=== PATIENT | male | born 1960 | race Caucasian/White ===

== ENCOUNTER → 2021-05-15 08:25 | Outpatient (CLI) | payer OTHER, SELFPAY ==
[2021-05-15 20:44] LABS: SARS-CoV-2 RNA PCR Negative
== END ==
PROVIDERS: PCP Physician Assistant; Visit Provider Physician Assistant
DX: R68.89 Other general symptoms and signs (principal); Z20.822 Contact with and (suspected) exposure to COVID-19
CPT/HCPCS: C9803; U0003; U0005

== ENCOUNTER 2021-08-21 08:14 | Outpatient (CLI) | payer OTHER, SELFPAY ==
--- NOTE | ~2021-08-21 | US_ITS ---
EXAMINATION: US art doppler sakina ROBLERO DATE: 08/21/2021 10:15 INDICATION: Type 1 diabetes mellitus with foot ulcer TECHNIQUE: Segmental pressures and plethysmographic and Doppler waveforms of the brachial and lower e xtremity arteries were obtained. COMPARISON: None. FINDINGS: Right and left brachial artery pressures of 176m Hg and 177m Hg, respectively, are concordant (normal difference <= 30 mmHg). The right and left high-thigh pressure indices are unable to be assessed due to inability to occlude the vessels throughout the bilateral lower limbs. The right ankle-brachial index (CLARENCE) is unable to be assessed due to inability to occlude the vessels at the right ankle (normal >= 0.9-1). The right great toe-brachial index (TBI) is 0.08 (normal >= 0. 6-0.8). Arterial waveforms are biphasic with borderline delayed upstrokes at the right posterior tibi al artery and with brisk upstrokes at the remaining arteries of the right lower limb. The left CLARENCE is unable to be assessed due to inability to occlude the vessels at the left ankle. The left TBI is 0.71. Arterial waveforms are biphasic with brisk systolic upstrokes throughout the arteri es of the left lower limb. IMPRESSION: 1. 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 2. No significant arterial occlusive disease in the left lower limb with normal left TBI. 3. Inability to occlude the vessels in either lower limb, at and proximal to the level of the ankles, which could be due to hypertension and/or vessel wall calcification. This precludes assessment of hi gh thigh pressure indices and ankle brachial indices. Reviewed, dictated and finalized at location B. IMPRESSION: 1. Severely decreased right TBI consistent with arterial occlusive disease in t he right lower limb. 2. No significant arterial occlusive disease in the left lower limb with normal left TBI. 3. Inability to occlude the vessels in either lower limb, at and proximal to th e level of the ankles, which could be due to hypertension and/or vessel wall ca lcification. This precludes assessment of high thigh pressure indices and ankle brachial indices.
== END 2021-08-21 08:15 | disposition home or self-care (01) ==
PROVIDERS: PCP Physician Assistant; Visit Provider Podiatrist Foot & Ankle Surgery
DX: E10.621 Type 1 diabetes mellitus with foot ulcer (principal); I73.9 Peripheral vascular disease, unspecified; L97.509 Non-pressure chronic ulcer of other part of unspecified foot with unspecified severity
CPT/HCPCS: 93923

== ENCOUNTER → 2021-12-24 12:49 | Outpatient (CLI) | payer OTHER, SELFPAY ==
--- NOTE | ~2021-12-24 | MR_ITS ---
EXAMINATION: MR foot RT wo/w con DATE: 12/24/2021 13:54 INDICATION: Right foot osteomyelitis. Open wound of the fifth digit since September. TECHNIQUE: Magnetic resonance imaging (MRI) of the right foot was performed without and with 17 mL Mu ltiHance intravenous contrast. COMPARISON: None FINDINGS: Bone alignment is normal. No fracture. There is bone marrow edema of fifth middle and dista l phalanges characterized by increased T2-weighted signal intensity and decreased T1-weighted signal intensity, consistent with osteomyelitis. There is mild osteoarthritis of many of the metatarsophalan geal joints and interphalangeal joints. Lisfranc ligament is normal. The flexor and extensor tendons are normal. There is extensive subcutaneous edema, worst dorsally. IMPRESSION: 1. Osteomyelitis involving fifth middle and distal phalanges. Reviewed, dictated and finalized at location A.
== END ==
PROVIDERS: PCP Physician Assistant; Visit Provider Student in an Organized Health Care Education/Training Program
DX: M86.171 Other acute osteomyelitis, right ankle and foot (principal)
CPT/HCPCS: 73720; A9577

== ENCOUNTER 2022-01-15 10:10 | Outpatient (CLI) | payer OTHER, SELFPAY ==
[2022-01-15 10:54] LABS: Anion Gap 13 mmol/L (8-16); Blood Urea Nitrogen 17 mg/dL (9-20); Calcium 8.2 mg/dL (8.4-10.2); Carbon Dioxide 28 mmol/L (22-30); Chloride 97 mmol/L (98-107); Estimated Glomerular Filt Rate > 60; Glucose 271 mg/dL (65-110); Potassium 4.3 mmol/L (3.4-5.0); Sodium 138 mmol/L (137-145)
== END 2022-01-15 10:11 | disposition home or self-care (01) ==
LOC: ANHSURGERY 10:13
PROVIDERS: Anesthesiology; PCP Physician Assistant; Visit Provider Student in an Organized Health Care Education/Training Program
DX: E10.9 Type 1 diabetes mellitus without complications (principal)
CPT/HCPCS: 36415; 80048

== ENCOUNTER 2022-01-20 00:50 | Day surgery (SDC) | payer OTHER, SELFPAY ==
[2022-01-13 09:31] VITALS: BMI 30.2
--- NOTE | 2022-01-13 09:52 | PC.NURSE ---
Report to the Outpatient Waiting Room, entrance under the green pavilion located off [facility], at time 12:00 on date 01/20/22. OR Time: 2:00. - You and your visitor will be asked to self-screen and do not enter if you have any COVID symptoms. - Only one visitor and NO children visitors are allowed at this time. - The patient visitor is requested to leave or wait in car when not with patient due to restrictions. - A mask is required within the hospital. Patients may have clear liquids (water, carbonated beverages, clear teas, apple juice) until 3 hours prior to surgery (11:00) with a maximum of 20 ounces. - No food from midnight until time of surgery Take the following medications with a SIP of water the morning of surgery: LEVOFLOXACIN, PREGABALIN, PAIN PILL (IF NEEDED), 1/2 DOSE INSULIN (DEPENDING ON BLOOD SUGAR) Medications to discontinue per physician: ASPIRIN, XARELTO Date to take last dose: PER DR. BURKETT'S INSTRUCTIONS Please no make-up, nail chinese, hairspray, perfume, deodorant, or body powder the day of surgery. No jewelry (including any body piercings) or valuables the day of surgery, leave them at home. Please take a shower or bath the night before, or the morning of, surgery with an antibacterial soap. Wear comfortable, loose fitting clothing. - Jewelry must be removed prior to entering the operating room. Rings and piercings that are not removed may be cut off. - The hospital will not accept responsibility for valuables. - Please leave all valuables, including medications, at home the day of surgery. If you are going home after surgery, a licensed minibus driver must drive you home. - NO public transportation without another adult. - We recommend that an adult stay with you for 24 hours following discharge. - We also recommend that you do not drive, make important decision, drink alcoholic beverages, or take any drugs that were not prescribed by your health care provider for at least 24 hours after your discharge time. Follow any additional instructions given to you from your surgeon. If you or anyone in your household have experienced Covid symptoms in the past week, please notify your surgeon or the nurse liaison at the phone number below for possible testing. Telephone instructions given to PT Dieter CHERRY and asked if any additional questions and then verbalized understanding. Patient advised to call surgeon office or pre surgery nurse liaison [phone] if any additional questions.
--- NOTE | ~2022-01-20 | XR_ITS ---
EXAMINATION: XR surgery orthopedic DATE: 01/20/2022 14:56 INDICATION: Partial amputation of the right fifth toe TECHNIQUE: Single fluoroscopic image at the lateral aspect of the right forefoot was obtained during procedure performed by Dr. Solares. Radiologist was not present for the imaging or procedure. The am ount of fluoroscopy time used during this procedure was 0.1 minutes. COMPARISON: MRI dated 12/24/2021 FINDINGS: Interval resection of the middle and distal phalanges and head of the proximal phalanx of the right f ifth toe. The surrounding soft tissues of the mid to distal fifth toe have not yet been resected. [place] at the neck of the fifth metatarsal. No fractures. Mild osteoarthritis at the visualized int erphalangeal joints of the third and fourth toes. IMPRESSION: 1. Fluoroscopy utilized during partial amputation of the right fifth toe with resection of the middle and distal phalanges and osteotomy at the neck of the proximal phalanx. See procedure note for furth er detail. Reviewed, dictated and finalized at location A. IMPRESSION: 1. Fluoroscopy utilized during partial amputation of the right fifth toe with r esection of the middle and distal phalanges and osteotomy at the neck of the pr oximal phalanx. See procedure note for further detail.
[2022-01-20 12:10] VITALS: BP 148/46; PULSE 83; RESP 16; TEMP 36.8; O2SAT 98
[2022-01-20 13:03] LABS: Glucose Point of Care 293 mg/dl (65-105)
--- NOTE | 2022-01-20 13:08 | P.PNAN_ITS ---
Anes - Initial Pre Proc Eval Procedure: Operation Date: 01/20/22 14:00 Proposed Procedures p Partial Amputation Fifth Digit Right Foot - Gloria Solares DPM Date/Time: 01/20/22 13:08 Surgeon: Gloria Solares DPM Pre Op Diagnosis: osteomylitis right 5th digit Patient Data Age: 61 Gender: M Height: 1.65 m Weight: 82.4 kg Last Vital Signs Temp 98.2 F 01/20/22 12:10 Pulse 83 01/20/22 12:10 Resp 16 01/20/22 12:10 BP 148/46 H 01/20/22 12:10 Pulse Ox 98 01/20/22 12:10 O2 Del Method Room Air 01/20/22 12:10 Allergies Allergy/AdvReac Type Severity Reaction Status Date / Time Penicillins Allergy Unknown Unknown Verified 01/20/22 11:58 Home Medications Medication Instructions Recorded Confirmed Type insulin aspart (niacinamide) See Rx Instructions .Route .COMPLEX 03/24/19 01/20/22 History (U-100) 100 unit/mL subcutaneous solution (Fiasp U-100 Insulin) insulin degludec 100 unit/mL 10 unit subcut DAILY 03/24/19 01/20/22 History subcutaneous solution (Tresiba U-100 Insulin) collagenase clostridium histo. 250 1 applic topical DAILY 12/21/21 01/20/22 History unit/gram topical ointment (Santyl) pregabalin 50 mg capsule (Lyrica) 50 mg PO TID #90 caps 12/21/21 01/20/22 Rx rivaroxaban 2.5 mg tablet (Xarelto) 2.5 mg PO BID 12/21/21 01/20/22 History acetaminophen 300 mg-codeine 30 mg 1 tablet PO Q6H PRN Pain 01/13/22 01/20/22 History tablet aspirin 81 mg chewable tablet 81 mg PO DAILY 01/13/22 01/20/22 History levofloxacin 500 mg tablet 750 mg PO BID 01/13/22 01/20/22 History Laboratory Tests 01/20/22 12:18 POC Capillary Glucose 293 mg/dl H mg/dl (65-105) Patient hx anesthesia problems: none Family hx anesthesia problems: none Results Review: All pre-operative results and documents have been reviewed as part of the pre- operative evaluation. [facility] Family History Family History Other Diabetes mellitus Social History Social History Smoking status: Never smoker Alcohol intake: never Substance use: never Substance use type: does not use Living arrangements: with family Spiritual care concerns: No Anes - Eval Final PreProcedure Day of Procedure 01/20/22 13:08 Patient weight: obese Heart: regular rate and rhythm Lungs: clear to auscultation Airway: Mallampati scale class II Neurological: alert and oriented Last oral intake: >/= 8 hours ASA classification: III Emergent: no Anesthetic plan: proceed Anesthesia type and monitoring: general GIVS and standard monitoring Results Review: All pre-operative results and documents have been reviewed as part of the pre- operative evaluation. Informed Consent: The patient's anesthetic plan and its attendant risks and benefits were discussed with the patient/family/POA. Questions were solicited and answers provided to the satisfaction of the patient/family/POA.
[2022-01-20] MEDS: LACTATED RINGERS 1,000 ML 30 ML IV CONT (13:20)
--- NOTE | 2022-01-20 13:56 | WPDHPUPDATE1 ---
History and Physical Update Update Date/Time: 01/20/22 13:56 History and Physical has been reviewed, including an updated exam of the patient. There are NO changes in the patient's condition. Risks, benefits, and alternatives have been discussed and questions answered. Patient agrees to proceed with procedure.
[2022-01-20] MEDS: ceFAZolin 2 GM/D5W 50 ML 2 GM/50 ML BAG IVPB (14:03)
[2022-01-20] MEDS: LIDOCAINE 1% BUFFERED WITH 8.4% SODIUM BICARB 1 ML SYRINGE 5 ML INFILTRATE (14:30)
[2022-01-20] MEDS: BUPIVACAINE HCL 0.5% PF 30 ML VIAL 5 ML INFILTRATE (14:30)
[2022-01-20 14:46] VITALS: BP 122/55; PULSE 65; RESP 14; O2SAT 98
--- NOTE | 2022-01-20 14:46 | W.PM.PROC2 ---
Procedure Note - Detailed Date of Procedure 01/20/22 Pre-op Diagnosis osteomylitis right 5th digit Post-op Diagnosis Same Procedure Performed Partial amputation right 5th digit. Surgeon Gloria Solares DPM Anesthesia MAC Indications Patient was seen in my office for non-healing ulcer right 5th after a vascular procedure done earlier this year. Patient failed conservative wound care and oral antibiotic therapy. An MRI was done and found to have osteomyelitis of the right 5th digit distal and middle phalanx. Patient was referred to infectious disease and they recommended amputation of the digit. Description of Procedure Patient brought into the operating room and placed on the table in the supine position. A well padded pneumatic ankle tourniquet was placed on the right ankle. A seat belt was placed across the patient's lap. A timeout was performed. A preoperative block using 10 cc of 1:1 mix of 1% lidocaine plain and 0.5% bupivacaine plain around the 5th digit. The foot was prepped and drapped using aseptic technique. The foot was exsanguinated of blood using an esmarch bandage and the tourniquet was inflated to 250 mmhg. Attention was drawn to the right 5th digit. Noted ulceration present. A fishmouth incision was made over the distal aspect of the right 5th digit. The incision was deepened through subcutaneous tissue and down to bone. The digit was disarticulated at the PIPJ and sent to pathology as gross specimen. A culture swab was performed at this time and sent for anaerobic/aerobic specimen. Next the head of the proximal phalanx was excised using a sagittal saw. The head of the proximal phalanx was split and half sent to microbiology and the other half sent to pathology as a clearance fragment. The incision was flushed with copious amounts of normal saline. The subcutaneous tissue was closed using 4-0 monocryl. The skin was closed using 4-0 prolene. The foot was cleaned and then dressed with adaptic, 4x4 gauze, kerlix and emery wrap. The tourniquet was deflated at this time and immediate hyperemic response was noted. The patient was transferred to the pacu. The patient tolerated the procedure and anesthesia well. The patient was monitored and then discharged home. The patient is to follow up in my office in 1 week or sooner if needed. Implants 4-0 monocryl and 4-0 prolene. Estimated Blood Loss 5 Tourniquet Time 20 Pathology Yes (1) Anaerobic/aerobic culture swab right 5th digit. 2) Distal right 5th digit to patology. 3) Clearance fragment right 5th digit to pathology. 4) Clearance fragment right 5h digit to microbiology.) Complications No immediate complications Condition Stable
[2022-01-20 15:15] VITALS: BP 144/47; PULSE 60
[2022-01-20 15:45] VITALS: BP 136/59; PULSE 57
[2022-01-20 15:52] LABS: Glucose Point of Care 280 mg/dl (65-105)
--- NOTE | 2022-01-20 15:54 | SUR.PHASEII ---
Dr. Sutherland aware of BP and said patient can resume regimen at home.
[2022-01-20] MEDS: ONDANSETRON INJ 4 MG/2 ML VIAL IV PUSH (16:07)
[2022-01-20 16:15] VITALS: BP 159/55; PULSE 63
[2022-01-20 16:45] VITALS: BP 153/63; PULSE 66
== END 2022-01-20 17:02 | disposition home or self-care (01) ==
PROVIDERS: PCP Physician Assistant; Visit Provider Student in an Organized Health Care Education/Training Program
PROC: (CPT 28825; principal; 2022-01-20 14:00)
DX: E10.621 Type 1 diabetes mellitus with foot ulcer (principal); L97.519 Non-pressure chronic ulcer of other part of right foot with unspecified severity; Z79.4 Long term (current) use of insulin; Z79.01 Long term (current) use of anticoagulants; E66.9 Obesity, unspecified; Z68.30 Body mass index [BMI] 30.0-30.9, adult
CPT/HCPCS: 28825; 82948; 87070; 87075; 87205; 88305; 88311; 99199; J0690; J2250; J2405; J2704; J3010; J7120

== ENCOUNTER 2022-05-11 14:48 | Outpatient (CLI) | payer OTHER, SELFPAY ==
--- NOTE | ~2022-05-11 | XR_ITS ---
EXAMINATION: XR hip LT min 3V w AP pelvis INDICATION: Left hip pain TECHNIQUE: AP view the pelvis and three views of the left hip are obtained. COMPARISON: None available FINDINGS: Bone alignment is normal. There is advanced osteoarthritis of the left hip and moderate ost eoarthritis of the right hip. Calcified atherosclerosis is noted. There is no fracture. IMPRESSION: 1. Advanced left and moderate right hip osteoarthritis. No fracture. Reviewed, dictated and finalized at location L. 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
== END 2022-05-11 14:49 | disposition home or self-care (01) ==
LOC: ANHIMG 14:52
PROVIDERS: PCP Physician Assistant; Visit Provider Physician Assistant
DX: M16.0 Bilateral primary osteoarthritis of hip (principal)
CPT/HCPCS: 73502

== ENCOUNTER 2022-06-22 11:52 | Outpatient (CLI) | payer OTHER, SELFPAY ==
[2022-06-22 12:38] LABS: Basophils Absolute Auto 0.1 K/mm3 (0.0-0.1); Basophils Percent Auto 0.6 % (0.2-1.2); Eosinophils Absolute Auto 0.2 K/mm3 (0-0.3); Eosinophils Percent Auto 1.6 % (0-4.4); Hematocrit 42.5 % (42.0-52.0); Hemoglobin 14.5 g/dL (14.0-18.0); Immature Granulocyte Absolute 0.02 K/mm3 (0.00-0.031); Immature Granulocyte Percent A 0.2 % (0-0.5); Lymphocytes Absolute Auto 3.29 K/mm3 (0.9-3.2); Lymphocytes Percent Auto 33.6 % (18.3-44.2); Mean Corpuscular HGB Conc 34.1 g/dl (32-36); Mean Corpuscular Hemoglobin 30.1 pg (26-34); Mean Corpuscular Volume 88.2 fl (80-100); Mean Platelet Volume 8.9 fl (7.4-10.4); Monocytes Absolute Auto 0.7 K/mm3 (0.1-0.6); Monocytes Percent Auto 6.9 % (2.6-8.5); Neutrophils Absolute Auto 5.6 K/mm3 (1.3-6.7); Neutrophils Percent Auto 57.1 % (45.5-73.1); Platelet Count Result 338 k/mm3 (150-375); Red Blood Count 4.82 M/mm3 (4.6-6.20); Red Cell Distribution Width 13.5 % (11.5-14.5); White Blood Count 9.8 K/mm3 (4.5-10.0)
[2022-06-22 13:15] LABS: Prostate Specific Antigen 1.7 ng/mL (< OR = 4.0)
[2022-06-22 16:12] LABS: Folic Acid > 20.0 ng/mL (2.76->20); Vitamin B12 > 1000.0 pg/mL (239-931)
== END 2022-06-22 11:53 | disposition home or self-care (01) ==
LOC: ANHLAB 11:53
PROVIDERS: PCP Physician Assistant; Visit Provider Physician Assistant
DX: Z00.00 Encounter for general adult medical examination without abnormal findings (principal); Z12.5 Encounter for screening for malignant neoplasm of prostate
CPT/HCPCS: 36415; 82607; 82746; 84153; 84443; 85025; G0103

== ENCOUNTER 2022-09-13 10:16 | Outpatient (CLI) | payer OTHER, SELFPAY ==
[2022-09-13 10:40] LABS: Hematocrit 38.9 % (42.0-52.0); Hemoglobin 13.2 g/dL (14.0-18.0)
[2022-09-13 10:52] LABS: Urine Cotinine NEGATIVE
[2022-09-13 10:53] LABS: Hemoglobin A1C 8.5 % (<5.7)
[2022-09-13 10:56] LABS: Albumin Level 4.1 g/dL (3.5-5.1); Estimated Glomerular Filt Rate > 60; Glucose 194 mg/dL (65-110)
--- NOTE | 2022-09-13 11:07 | ECG_ITS ---
Measurements Intervals [place] Rate: 65 P: 48 IN: 170 QRS: -13 QRSD: 94 T: 36 QT: 382 QTc: 397 Interpretive Statements SINUS RHYTHM BASELINE WANDER- I, II NORMAL ECG NO PREVIOUS ECG AVAILABLE FOR COMPARISON Electronically Signed On 09-13-2022 11:31:24 CDT by Too Elder D.O.
== END 2022-09-13 10:17 | disposition home or self-care (01) ==
PROVIDERS: PCP Physician Assistant; Visit Provider Orthopaedic Surgery
DX: M16.0 Bilateral primary osteoarthritis of hip (principal); E11.9 Type 2 diabetes mellitus without complications
CPT/HCPCS: 80307; 82040; 82565; 82947; 83036; 85014; 85018; 93005

== ENCOUNTER 2023-01-03 00:57 | Emergency (ER) | payer OTHER, SELFPAY ==
[2023-01-03] VITALS (17 sets, daily range): BP systolic 95–149; BP diastolic 41–65; PULSE 62–90; RESP 12–22; TEMP 36.1; O2SAT 96–100
--- NOTE | ~2023-01-03 | CT_ITS ---
EXAMINATION: CT abdomen pelvis w con DATE: 01/03/2023 02:44 INDICATION: General is abdominal pain. Nausea. TECHNIQUE: Computed tomography (CT) of the abdomen and pelvis was performed with 100 mL Omnipaque 350 intravenous contrast. Automated exposure control and iterative reconstruction technique were employe d. The dose-length product was 640.91 mGy-cm. COMPARISON: None. FINDINGS: The visualized portions of the lung bases demonstrate mild atelectasis. There is a 5 mm nod ule in left lung lower lobe. There is a 6 mm nodule in left lung lower lobe. A calcified left lung no dule is consistent with old granulomatous disease. No pleural effusion. The heart size is normal. The re are coronary artery calcifications. No pericardial effusion. The liver and spleen are normal. The gallbladder is normal in size and contains gallstones. There is a gallstone lodged in the gallbladder neck. The pancreas, adrenal glands, and left kidney are normal. There is a 3.5 cm mass in right kidn ey measuring soft tissue attenuation. The prostate is mildly enlarged. There are no dilated loops of bowel. The appendix is normal. There are no pathologically enlarged lymph nodes. There is no free int raperitoneal fluid. There is mild chronic height loss of multiple vertebral bodies. There is mild tho racic and lumbar spondylosis. IMPRESSION: 1. Cholelithiasis including a gallstone lodged in the gallbladder neck. No specific evidence of acute cholecystitis. Consider ultrasound. 2. 3.5 cm mass in right kidney, which may be a hemorrhagic cyst or less likely a neoplasm. Ultrasound is recommended. 3. Pulmonary nodules measuring up to 6 mm, probably benign. Consider noncontrast low-dose chest CT in 6-12 months. Reviewed, dictated and finalized at location A. IMPRESSION: 1. Cholelithiasis including a gallstone lodged in the gallbladder neck. No spec ific evidence of acute cholecystitis. Consider ultrasound. 2. 3.5 cm mass in right kidney, which may be a hemorrhagic cyst or less likely a neoplasm. Ultrasound is recommended. 3. Pulmonary nodules measuring up to 6 mm, probably benign. Consider noncontras t low-dose chest CT in 6-12 months.
[2023-01-03 01:13] LABS: Appearance Urine Clear (Clear); Bilirubin Urine Negative (Negative); Blood Urine Negative (Negative); Color Urine Yellow (Yellow); Glucose Urine UA Negative (Negative); Ketones Urine Negative (Negative); Leukocyte Esterase Ur Negative LEU/UL (Negative); Nitrate Urine Negative (Negative); Protein Urine Negative (Negative); Specific Grav Ur 1.017 (1.001-1.035); Urobilinogen Urine 0.2 mg/dL (<2.0); pH Urine 5.5 (5.0-9.0)
[2023-01-03 01:33] LABS: Add Urine Microscopic? NO
[2023-01-03 01:39] LABS: Basophils Absolute Auto 0.1 K/mm3 (0.0-0.1); Basophils Percent Auto 0.5 % (0.2-1.2); Eosinophils Absolute Auto 0.3 K/mm3 (0-0.3); Eosinophils Percent Auto 2.3 % (0-4.4); Hematocrit 39.7 % (42.0-52.0); Hemoglobin 13.4 g/dL (14.0-18.0); Immature Granulocyte Absolute 0.05 K/mm3 (0.00-0.031); Immature Granulocyte Percent A 0.4 % (0-0.5); Lymphocytes Absolute Auto 1.96 K/mm3 (0.9-3.2); Lymphocytes Percent Auto 15.9 % (18.3-44.2); Mean Corpuscular HGB Conc 33.8 g/dl (32-36); Mean Corpuscular Hemoglobin 31.2 pg (26-34); Mean Corpuscular Volume 92.3 fl (80-100); Mean Platelet Volume 8.9 fl (7.4-10.4); Monocytes Absolute Auto 0.9 K/mm3 (0.1-0.6); Neutrophils Absolute Auto 9.2 K/mm3 (1.3-6.7); Neutrophils Percent Auto 73.9 % (45.5-73.1); Platelet Count Result 304 k/mm3 (150-375); Red Cell Distribution Width 13.2 % (11.5-14.5); White Blood Count 12.4 K/mm3 (4.5-10.0)
[2023-01-03 02:13] LABS: Alanine Aminotransferase 39 U/L (6-50); Albumin Level 4.2 g/dL (3.5-5.1); Alkaline Phosphatase 99 U/L (38-126); Anion Gap 8 mmol/L (8-16); Aspartate Amino Transferase 38 U/L (17-59); Bilirubin,Total 0.3 mg/dL (0.2-1.3); Blood Urea Nitrogen 23 mg/dL (9-20); Calcium 8.8 mg/dL (8.4-10.2); Carbon Dioxide 24 mmol/L (22-30); Chloride 103 mmol/L (98-107); Estimated CRCL calculation 83 ml/min; Estimated Glomerular Filt Rate > 60; Glucose 153 mg/dL (65-110); Lipase 67 U/L (23-300); Potassium 3.9 mmol/L (3.4-5.0); Sodium 135 mmol/L (137-145)
[2023-01-03] MEDS: SODIUM CHLORIDE 0.9% IV 1,000 ML 999 ML IV CONT (02:19)
[2023-01-03] MEDS: MORPHINE SULFATE (*CRX) 4 MG/ML INJ IV PUSH (02:20)
[2023-01-03] MEDS: ONDANSETRON INJ 4 MG/2 ML VIAL IV PUSH (02:20)
--- NOTE | 2023-01-03 02:21 | ED.GENADULT ---
HPI - General Adult General Chief complaint: Abdominal Pain Stated complaint: stomach is upset, nausea Time Seen by Provider: 01/03/23 01:47 History of Present Illness HPI narrative: Patient is 62-year-old gentleman who presents the emergency department with chief complaint of abdominal pain. The patient reports that around 2 to 3 hours ago he started having an uncomfortable feeling throughout his abdomen the patient states an aching-like feeling and feels full. Patient reports he is unable to get comfortable in any position reports symptoms or not worsened by movement or palpation. Related Data Home Medications Medication Instructions Recorded Confirmed insulin aspart (niacinamide) See Rx Instructions .Route .COMPLEX 03/24/19 09/08/22 (U-100) 100 unit/mL subcutaneous solution (Fiasp U-100 Insulin) insulin degludec 100 unit/mL 10 unit subcut DAILY 03/24/19 09/08/22 subcutaneous solution (Tresiba U-100 Insulin) rivaroxaban 2.5 mg tablet (Xarelto) 2.5 mg PO BID 12/21/21 09/08/22 aspirin 81 mg chewable tablet 81 mg PO DAILY 01/13/22 09/08/22 rosuvastatin 20 mg tablet 20 mg PO DAILY 02/04/22 09/08/22 Allergies Allergy/AdvReac Type Severity Reaction Status Date / Time Penicillins Allergy Unknown Unknown Verified 01/03/23 01:35 Review of Systems Review of Systems: A 10 system review of systems was completed on the patient and is negative except for what is stated in the HPI. Nursing and ancillary documentation was reviewed. [facility] Past Medical History Medical History Diabetes Surgical History Surgical History History of angioplasty Family History Family History Other Diabetes mellitus Social History Social History Smoking status: Never smoker Alcohol intake: never Substance use: never Substance use type: does not use Lack of Transportation: No Lack of Food: Never True Current Housing: I Have Housing Concerned About Future Housing: No Difficulty Paying Gas/Electric Bills: No Difficulty Paying for Meds: No Currently Unemployed: No Education: High School Diploma/GED Difficulty w/ Childcare or Family Care: No Living arrangements: with family Spiritual care concerns: No Exam Narrative: GENERAL: Well-appearing, well-nourished, and in no acute distress. HEAD: Normocephalic, atraumatic. EYES: PERRLA and EOMI. ENT: Nares clear, no rhinorrhea or epistaxis. Mucous membranes moist. NECK: Supple. CHEST: Clear to auscultation. No respiratory distress. HEART: Regular rate and rhythm. No murmur heard. Normal peripheral pulses. ABDOMEN: Soft, diffuse mild tenderness, nondistended, normal active bowel sounds. EXTREMITIES: Normal range of motion. No edema. SKIN: Warm, dry, no rash. NEURO: No focal deficits. Alert and oriented x3. PSYCH: Normal mood and affect. Course Vital Signs Vital signs: Vital Signs Temperature 36.1 C L 01/03/23 01:00 Pulse Rate 66 01/03/23 01:00 Respiratory Rate 16 01/03/23 01:00 Blood Pressure 126/65 01/03/23 01:00 Pulse Oximetry 100 01/03/23 01:00 Oxygen Delivery Room Air 01/03/23 01:00 Temperature 36.1 C L 01/03/23 01:00 Pulse Rate 86 01/03/23 04:45 Respiratory Rate 13 01/03/23 04:45 Blood Pressure 147/43 H 01/03/23 04:31 Pulse Oximetry 100 01/03/23 04:45 Oxygen Delivery Room Air 01/03/23 01:00 Medical Decision Making [facility] Narrative Medical decision making narrative: Differential diagnosis includes biliary colic, ureterolithiasis, cholecystitis, Laboratory studies were obtained which showed a CBC with a white count of 12.4 electrolytes are within normal limits urinalysis showed no acute findings CT scan of the abdomen pelvis showed evid
--- NOTE | 2023-01-03 02:28 | PC.NURSE ---
Patient taken to CT via stretcher at this time.
== END 2023-01-03 06:37 | disposition home or self-care (01) ==
PROVIDERS: Emergency Provider Emergency Medicine; PCP Physician Assistant
DX: K80.70 Calculus of gallbladder and bile duct without cholecystitis without obstruction (principal); E11.9 Type 2 diabetes mellitus without complications; Z79.82 Long term (current) use of aspirin; Z79.4 Long term (current) use of insulin; Z79.01 Long term (current) use of anticoagulants; Z98.61 Coronary angioplasty status; N28.89 Other specified disorders of kidney and ureter; R91.8 Other nonspecific abnormal finding of lung field
CPT/HCPCS: 36415; 74177; 80053; 81003; 83690; 85025; 96361; 96374; 96375; 99284; J2270; J2405; J7030; Q9967

== ENCOUNTER → 2023-01-22 07:58 | Outpatient (CLI) | payer OTHER, SELFPAY ==
--- NOTE | ~2023-01-22 | US_ITS ---
EXAMINATION: US renal BI DATE: 01/22/2023 08:56 INDICATION: R renal mass TECHNIQUE: Multiple grayscale and Doppler ultrasound images of the kidneys were obtained. COMPARISON: None. FINDINGS: The right kidney measures 10.4 x 6.5 x 6.4 cm. The left kidney measures 12.1 x 5.6 x 5.1 cm. The kidn eys demonstrate normal parenchymal echogenicity. 3.9 cm minimally lobulated, mostly anechoic right mi dpole lesion with minimal nonvascular internal debris and peripheral hypoechoic areas that could repr esent solid tissue. There is no hydronephrosis. The bladder is decompressed. IMPRESSION: 3.9 cm right midpole complex cyst, recommend CT or MRI with and without contrast for further evaluati on. Otherwise unremarkable renal sonogram findings. Reviewed, dictated and finalized at location K. IMPRESSION: 3.9 cm right midpole complex cyst, recommend CT or MRI with and without contras t for further evaluation. Otherwise unremarkable renal sonogram findings.
== END ==
PROVIDERS: PCP Physician Assistant; Visit Provider Physician Assistant
DX: N28.89 Other specified disorders of kidney and ureter (principal)
CPT/HCPCS: 76775

== ENCOUNTER → 2023-02-07 13:47 | Outpatient (CLI) | payer OTHER, SELFPAY ==
--- NOTE | ~2023-02-07 | MR_ITS ---
EXAMINATION: MR abdomen wo/w con DATE: 02/07/2023 15:00 INDICATION: Other specified disorders of kidney and ureter. Right kidney mass. TECHNIQUE: Magnetic resonance imaging (MRI) of the abdomen was performed without and with 17 mL Multi Kaitlin intravenous contrast. COMPARISON: Ultrasound 01/22/2023, CT 01/03/2023 FINDINGS: The liver is normal. There are gallstones in the gallbladder, which is normal in size. The spleen is normal. There is a 7 mm cystic lesion in the tail of the pancreas. The adrenal glands and left kidney are normal. There is a 3.8 cm hemorrhagic cyst in right kidney. No solid enhancing component. There are no dilated loops of bowel. There are no pathologically enlarged lymph nodes. There is no free int raperitoneal fluid. IMPRESSION: 1. 3.8 cm benign hemorrhagic cyst in right kidney. 2. 7 mm cystic lesion of the pancreas. The differential diagnosis includes pseudocyst, intraductal pa pillary mucinous neoplasm (IPMN), mucinous cystic neoplasm (MCN), serous cystadenoma, and neuroendocr ine tumor. Abdomen MRI without and with contrast is recommended in one year. Reviewed, dictated and finalized at location A. IMPRESSION: 1. 3.8 cm benign hemorrhagic cyst in right kidney. 2. 7 mm cystic lesion of the pancreas. The differential diagnosis includes pseu docyst, intraductal papillary mucinous neoplasm (IPMN), mucinous cystic neoplas m (MCN), serous cystadenoma, and neuroendocrine tumor. Abdomen MRI without and with contrast is recommended in one year.
== END ==
PROVIDERS: Visit Provider Physician Assistant
DX: N28.89 Other specified disorders of kidney and ureter (principal); R60.0 Localized edema
CPT/HCPCS: 74183; A9577

== ENCOUNTER 2023-03-09 17:32 | Emergency (ER) | payer OTHER, SELFPAY ==
[2023-03-09 17:38] VITALS: BP 142/60; PULSE 73; RESP 16; TEMP 36.7; O2SAT 98
--- NOTE | 2023-03-09 17:58 | ED.GENADULT ---
HPI - General Adult General Chief complaint: Nausea/Vomiting/Diarrhea Stated complaint: Vomitting and Stomach Issues Source: patient and RN notes reviewed History of Present Illness HPI narrative: 62 yo M presents to urgent care stating that he vomited 2x today. Pt states he vomited 1x in the late morning. Pt states he felt woozy in the head a little later so he checked his sugar and it was 80 mg/dl. Pt ate lunch at that time and he vomited again. Pt states he is no longer nauseated and he has kept fluids down today. Pt has not tried eating food since lunch. Denies any fevers, chills, abdominal pain, chest pain, SOB, sore throat, ear pain, congestion, dysuria, or any further wooziness. Denies any VALVERDE, numbness or tingling. Related Data Home Medications Medication Instructions Recorded Confirmed insulin aspart (niacinamide) See Rx Instructions .Route .COMPLEX 03/24/19 02/08/23 (U-100) 100 unit/mL subcutaneous solution (Fiasp U-100 Insulin) insulin degludec 100 unit/mL 10 unit subcut DAILY 03/24/19 02/08/23 subcutaneous solution (Tresiba U-100 Insulin) rivaroxaban 2.5 mg tablet (Xarelto) 2.5 mg PO BID 12/21/21 02/08/23 rosuvastatin 20 mg tablet 20 mg PO DAILY 02/04/22 02/08/23 Tumeric 1,000 mg PO DAILY 02/08/23 02/08/23 cholecalciferol (vitamin D3) 25 25 mcg PO DAILY 02/08/23 02/08/23 mcg (1,000 unit) tablet (Vitamin D3) cinnamon bark 500 mg capsule 1,000 mg PO DAILY 02/08/23 02/08/23 (Cinnamon) cyanocobalamin (vitamin B-12) 1,000 mcg PO DAILY 02/08/23 02/08/23 1,000 mcg tablet (Vitamin B-12) geriatric multivitamin-min 1 tablet PO DAILY 02/08/23 02/08/23 krill 1 cap PO DAILY 02/08/23 02/08/23 [id number] 300 mg-90 mg-24 mg-50 mg capsule (krill oil) losartan 100 1 tablet PO DAILY 02/08/23 02/08/23 mg-hydrochlorothiazide 25 mg tablet Allergies Allergy/AdvReac Type Severity Reaction Status Date / Time Penicillins Allergy Unknown Hives Verified 02/08/23 14:38 Review of Systems Review of Systems: CONSTITUTIONAL: Denies fever, chills, or sweats. EYES: Denies visual changes, redness, or discharge. ENT: Denies otalgia and sore throat CARDIOVASCULAR: Denies chest pain, palpitations, or edema. RESPIRATORY: Denies cough or dyspnea. GASTROINTESTINAL: Denies abdominal pain, nausea, vomiting, or diarrhea. GENITOURINARY: Denies dysuria or hematuria. SKIN: Denies rash or itching. MUSCULOSKELETAL: Denies back pain, joint pain, or myalgia. NEUROLOGIC: Denies headache, numbness, or weakness. Pertinent positives per HPI. COUNT INCLUDES THE [facility] Past Medical History Medical History Diabetes Surgical History Surgical History History of angioplasty Family History Family History Other Diabetes mellitus Social History Social History Smoking status: Never smoker Alcohol intake: never Substance use: never Substance use type: does not use Lack of Transportation: No Lack of Food: Never True Current Housing: I Have Housing Concerned About Future Housing: No Difficulty Paying Gas/Electric Bills: No Difficulty Paying for Meds: No Currently Unemployed: No Education: High School Diploma/GED Difficulty w/ Childcare or Family Care: No Living arrangements: with family Spiritual care concerns: No Comments At the time of my signature, I reviewed and agree with the nursing past medical, surgical, social, and family history. There is no relevant family history pertinent to the patient complaint. Exam Narrative: GENERAL: This is a well-nourished, well-developed patient, in no apparent distress. HEAD: normocephalic, atraumatic. EYES: Sclera clear/white. Vision is grossly intact. EARS: External ears normal, auditory canals clear
== END 2023-03-09 18:06 | disposition home or self-care (01) ==
PROVIDERS: Emergency Provider Nurse Practitioner Family; PCP Physician Assistant
DX: K52.9 Noninfective gastroenteritis and colitis, unspecified (principal); E11.9 Type 2 diabetes mellitus without complications; Z79.4 Long term (current) use of insulin; Z79.01 Long term (current) use of anticoagulants
CPT/HCPCS: 99213; G0463

== ENCOUNTER 2023-04-26 07:17 | Outpatient (RCR) | payer OTHER, SELFPAY ==
[2023-02-08 10:15] VITALS: BMI 30.5
== END 2023-05-09 23:59 | disposition home or self-care (01) ==
LOC: ANHWOC 07:17
PROVIDERS: Visit Provider Podiatrist Foot & Ankle Surgery
DX: L97.519 Non-pressure chronic ulcer of other part of right foot with unspecified severity (principal)
CPT/HCPCS: 99213; 99214; G0463

== ENCOUNTER 2023-05-18 09:45 | Outpatient (RCR) | payer OTHER, SELFPAY ==
[2023-05-10 00:02] VITALS: BMI 30.5
== END 2023-05-18 10:30 | disposition home or self-care (01) ==
LOC: ANHWOC 09:45
PROVIDERS: PCP Physician Assistant; Visit Provider Podiatrist Foot & Ankle Surgery
DX: L97.511 Non-pressure chronic ulcer of other part of right foot limited to breakdown of skin (principal)
CPT/HCPCS: 99213; G0463

== ENCOUNTER 2023-06-08 10:53 | Outpatient (CLI) | payer OTHER, SELFPAY ==
[2023-06-08 11:48] LABS: Influenza A QL RT-PCR Negative (Negative); Influenza B QL RT-PCR Negative (Negative); RSV RNA, RT-PCR Positive (Negative); SARS-CoV-2 RNA PCR Negative (Negative)
== END 2023-06-08 10:54 | disposition home or self-care (01) ==
LOC: ANHLAB 10:54
PROVIDERS: PCP Physician Assistant; Visit Provider Physician Assistant
DX: R68.89 Other general symptoms and signs (principal); Z20.822 Contact with and (suspected) exposure to COVID-19
CPT/HCPCS: 87637

== ENCOUNTER 2023-06-16 14:23 | Outpatient (CLI) | payer OTHER, SELFPAY ==
--- NOTE | ~2023-06-16 | XR_ITS ---
XR chest 2V DATE: 06/16/2023 14:35 INDICATION: Cough for 2 weeks TECHNIQUE: PA and lateral views COMPARISON: September 05, 2017 two-view chest FINDINGS: Normal heart size. No hilar or mediastinal enlargement. No pulmonary infiltrate or consolidation, pleural effusion or pulmonary vascular congestion or pneumo thorax is detected. Multiple calcified gallstones overlying the anterior upper abdomen on lateral view. Dextroscoliosis and degenerative changes of the thoracic and lumbar spine. Healed anterolateral right eighth rib fracture. Osteopenia. IMPRESSION: No active cardiopulmonary disease Cholelithiasis. Reviewed, dictated and finalized at location L. [facility]IST[facility]
== END 2023-06-16 14:24 | disposition home or self-care (01) ==
LOC: ANHIMG 14:25
PROVIDERS: PCP Physician Assistant; Visit Provider Physician Assistant
DX: R05.9 Cough, unspecified (principal); K80.20 Calculus of gallbladder without cholecystitis without obstruction
CPT/HCPCS: 71046

== ENCOUNTER 2023-06-18 15:17 | Emergency (ER) | payer OTHER, SELFPAY ==
[2023-06-18 15:24] VITALS: BP 129/55; PULSE 75; RESP 16; TEMP 36.6; O2SAT 99
--- NOTE | 2023-06-18 15:43 | ED.URI ---
HPI - URI/Sore Throat General Chief Complaint: Upper Respiratory Infection Stated Complaint: Cough Source: patient Mode of arrival: ambulatory Limitations: no limitations History of Present Illness HPI Narrative: 63-year-old male presented for complaint of cough for 2 weeks. He denies any associated symptoms. Taking Mucinex for symptoms. Related Data Home Medications Medication Instructions Recorded Confirmed insulin aspart (niacinamide) See Rx Instructions .Route .COMPLEX 03/24/19 02/08/23 (U-100) 100 unit/mL subcutaneous solution (Fiasp U-100 Insulin) insulin degludec 100 unit/mL 10 unit subcut DAILY 03/24/19 02/08/23 subcutaneous solution (Tresiba U-100 Insulin) rivaroxaban 2.5 mg tablet (Xarelto) 2.5 mg PO BID 12/21/21 02/08/23 rosuvastatin 20 mg tablet 20 mg PO DAILY 02/04/22 02/08/23 Tumeric 1,000 mg PO DAILY 02/08/23 02/08/23 cholecalciferol (vitamin D3) 25 25 mcg PO DAILY 02/08/23 02/08/23 mcg (1,000 unit) tablet (Vitamin D3) cinnamon bark 500 mg capsule 1,000 mg PO DAILY 02/08/23 02/08/23 (Cinnamon) cyanocobalamin (vitamin B-12) 1,000 mcg PO DAILY 02/08/23 02/08/23 1,000 mcg tablet (Vitamin B-12) geriatric multivitamin-min 1 tablet PO DAILY 02/08/23 02/08/23 krill 1 cap PO DAILY 02/08/23 02/08/23 [id number] 300 mg-90 mg-24 mg-50 mg capsule (krill oil) losartan 100 1 tablet PO DAILY 02/08/23 02/08/23 mg-hydrochlorothiazide 25 mg tablet Allergies Allergy/AdvReac Type Severity Reaction Status Date / Time Penicillins Allergy Unknown Hives Verified 02/08/23 14:38 Review of Systems Review of Systems: CONSTITUTIONAL: Denies body aches, fever, chills, or sweats. EYES: Denies visual changes, redness, or discharge. ENT: Denies rhinorrhea, congestion, sore throat, or otalgia. CARDIOVASCULAR: Denies chest pain, palpitations, or edema. RESPIRATORY: Reports cough,denies sob, wheezing. GASTROINTESTINAL: Denies abdominal pain, nausea, vomiting, or diarrhea. GENITOURINARY: Denies dysuria or hematuria. SKIN: Denies rash, itching, or wounds. MUSCULOSKELETAL: Denies back pain, joint pain, or myalgia. NEUROLOGIC: Denies headache, numbness, tingling, or weakness. All systems reviewed & are unremarkable except as noted in HPI and below PMFSH Past Medical History Medical History Diabetes Surgical History Surgical History History of angioplasty Family History Family History Other Diabetes mellitus Social History Social History Smoking status: Never smoker Alcohol intake: never Substance use: never Substance use type: does not use Lack of Transportation: No Lack of Food: Never True Current Housing: I Have Housing Concerned About Future Housing: No Difficulty Paying Gas/Electric Bills: No Difficulty Paying for Meds: No Currently Unemployed: No Education: High School Diploma/GED Difficulty w/ Childcare or Family Care: No Living arrangements: with family Spiritual care concerns: No Comments At time of signature, I have reviewed and agree with nursing past medical, surgical, social and family history unless otherwise noted. Please see nursing chart for further information. There is no relevant family history pertinent to the presenting complaint Exam Narrative: GENERAL: Well-appearing, in no acute distress. EYES: EOMI. No redness or drainage. Conjunctivae normal. ENT: Mucous membranes pink and moist. No rhinorrhea. CHEST: No respiratory distress. Lungs with scattered coarse sounds, clears with frequent cough. HEART: Regular rate and rhythm. No murmur appreciated. ABDOMEN: Soft, nontender, nondistended, normal active bowel sounds. SKIN: Warm, dry, no rash. Capillary refill normal. Normal skin turgor.
== END 2023-06-18 15:55 | disposition home or self-care (01) ==
PROVIDERS: Emergency Provider Nurse Practitioner Family; PCP Physician Assistant
DX: J40 Bronchitis, not specified as acute or chronic (principal); E11.9 Type 2 diabetes mellitus without complications; Z79.4 Long term (current) use of insulin
CPT/HCPCS: 99213; G0463

== ENCOUNTER 2024-06-02 12:57 | Emergency (ER) | payer OTHER, SELFPAY ==
--- NOTE | ~2024-06-02 | XR_ITS ---
EXAMINATION: XR hand LT min 3V DATE: 06/02/2024 13:23 INDICATION: Left hand injury. TECHNIQUE: 3 views of left hand were obtained. COMPARISON: None. FINDINGS: Alignment is normal. No fracture. There is mild osteoarthritis of third and fourth metacarp ophalangeal joints and some of the interphalangeal joints. IMPRESSION: 1. Mild polyarticular osteoarthritis. Reviewed, dictated and finalized at location A. SHER FEEDER
[2024-06-02 13:12] VITALS: BP 150/36; PULSE 72; RESP 16; TEMP 36.4; O2SAT 99
[2024-06-02] MEDS: TETANUS,DIPHTHERIA,AC PERTUSSIS ADULT (0.5 ML) BOOSTRIX IM (13:59)
--- NOTE | 2024-06-02 14:08 | ED_ITS ---
HPI - Extremity Injury (Upper) General Chief Complaint: Extremity Injury, Upper Stated Complaint: Injured Left Hand Time Seen by Provider: 06/02/24 13:38 Source: patient, family () and RN notes reviewed Mode of arrival: ambulatory Limitations: no limitations History of Present Illness HPI narrative: Patient presents today complaining of an injury to his left hand. 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 Denies numbness or tingling in the hand or fingers. Primarily the injuries are to the dorsum of his 2nd and 3rd fingers. He i nitially had some bleeding on the 2nd finger but states he went to the school nurse and she bandaged the area. He currently rates his pain 5/10 and has taken some Tylenol with relief. States this will be a workmen's compensation claim. Related Data Home Medications ?Medication ?Instructions ?Recorded ?Confirmed ?Last Taken ?Type insulin aspart (niacinamide) See Rx Instructions .Route .COMPLEX 03/24/19 12/23/23 01/20/22 08:00 History (U-100) 100 unit/mL subcutaneous solution (Fiasp U-100 Insulin) insulin degludec 100 unit/mL 10 unit subcut DAILY 03/24/19 12/23/23 01/20/22 09:00 History subcutaneous solution (Tresiba U-100 Insulin) rivaroxaban 2.5 mg tablet (Xarelto) 2.5 mg PO BID 12/21/21 12/23/23 01/17/22 History rosuvastatin 20 mg tablet 20 mg PO DAILY 02/04/22 12/23/23 Unknown History Tumeric 1,000 mg PO DAILY 02/08/23 12/23/23 Unknown History cholecalciferol (vitamin D3) 25 25 mcg PO DAILY 02/08/23 12/23/23 Unknown History mcg (1,000 unit) tablet (Vitamin D3) cinnamon bark 500 mg capsule 1,000 mg PO DAILY 02/08/23 12/23/23 Unknown History (Cinnamon) cyanocobalamin (vitamin B-12) 1,000 mcg PO DAILY 02/08/23 12/23/23 Unknown History 1,000 mcg tablet (Vitamin B-12) geriatric multivitamin-min 1 tablet PO DAILY 09/26/23 08/09/24 Unknown History krill 1 cap PO DAILY 02/08/23 12/23/23 Unknown History [id number]-tam-[id number] 300 mg-90 mg-24 mg-50 mg capsule (krill oil) Allergies Allergy/AdvReac Type Severity Reaction Status Date / Time Penicillins Allergy Unknown Hives Verified 02/08/24 07:26 Review of Systems Review of Systems: CONSTITUTIONAL: Denies body aches, fever, chills, or sweats. EYES: Denies visual changes, redness, or discharge. ENT: Denies rhinorrhea, congestion, sore throat, or otalgia. CARDIOVASCULAR: Denies chest pain, palpitations, or edema. RESPIRATORY: Denies cough or dyspnea. GASTROINTESTINAL: Denies abdominal pain, nausea, vomiting, or diarrhea. GENITOURINARY: Denies dysuria or hematuria. SKIN: Denies rash, itching, or wounds. MUSCULOSKELETAL: Denies back pain. +left hand injury NEUROLOGIC: Denies headache, numbness, tingling, or weakness. PSYCH: Denies depression or anxiety. PMFSH Past Medical History Medical History Diabetes Surgical History Surgical History History of angioplasty Family History Family History Other Diabetes mellitus Social History Social History Smoking status: Never smoker Alcohol intake: never Substance use: never Substance use type: does not use Lack of Transportation: No Lack of Food: Never True Current Housing: I Have Housing Concerned About Future Housing: No Difficulty Paying Gas/Electric Bills: No Difficulty Paying for Meds: No Currently Unemployed: No Education: High School Diploma/GED Difficulty w/ Childcare or Family Care: No Living arrangements: with family Spiritual care concerns: No Comments At time of signature, I have reviewed and agree with nursing past medical, surgical, social and family history unless otherwise noted. Please see nursing chart for further information. There is no relevant family history pertinent to the presenting complaint Exam Narrative: GENERAL: Well-appearing, well-nourished, and in no acute distress. HEAD: Normocephalic, atraumatic. EYES: EOMI. No redness or drainage. Conjunctivae normal. ENT: Mucous membranes pink and moist. NECK: Normal AROM. CHEST: No respiratory distress. EXTREMITIES: Left hand:Ecchymosis on the dorsums of fingers 2 and 3. Approx 1cm linear scabbed area to dorsum of 2nd finger. No deformities. Tenderness to fingers 2 and 3 but no tenderness to the remainder of the fingers or hand. Distal sensation intact in all 5 fingers. Capillary refill. Full range of motion of all fingers against resistance. No fingernail involvement. SKIN: Warm, dry, no rash. Capillary refill normal. Normal skin turgor. NEURO: No focal deficits. Alert and oriented x3. Gait steady. PSYCH: Normal affect. No signs of depression or anxiety. Course Course Level of Care: Express Care Visit Vital Signs Vital signs: Vital Signs Temperature 97.5 F L 06/02/24 13:12 Pulse Rate 72 06/02/24 13:12 Respiratory Rate 16 06/02/24 13:12 Blood Pressure 150/36 H 06/02/24 13:12 Pulse Oximetry 99 06/02/24 13:12 Temperature 97.5 F L 06/02/24 13:12 Pulse Rate 74 06/02/24 14:10 Respiratory Rate 16 06/02/24 13:12 Blood Pressure 126/44 L 06/02/24 14:10 Pulse Oximetry 99 06/02/24 14:10 Oxygen Delivery Room Air 06/02/24 14:10 Reviewed MDM - Extremity Injury (Upper) MDM Narrative Medical decision making narrative: X-ray negative for fracture. Recommend ifnr-mjj-pdwulcv treatment for pain such as Tylenol or ibuprofen ice to help with inflammation. Anticipatory guidance given. Differential Diagnosis Differential diagnosis: Likely dislocation of finger, fracture of hand and other (Contusion, finger fracture, abrasion) Imaging Data Radiologist's impression: ITS Impressions Hand X-Ray 06/02/24 13:26 IMPRESSION: 1. Mild polyarticular osteoarthritis. Critical Care Time Critical Care Time Critical Care Time: No Discharge Plan Discharge Clinical Impression: Contusion of dorsum of left hand Patient Disposition: Home, Self-Care Condition: Stable Instructions: Contusion in Adults (ED) Additional Instructions: Your x-ray is negative for fracture. Your tetanus shot has been updated today. Continue Tylenol for pain. You may apply some ice for inflammation. Follow-up with your employer regarding workman's compensation. Your blood pressure was elevated above 120/80 today at Urgent Care. This puts you above the threshold for follow up. Please schedule a followup visit with your personal physician as soon as possible, for further evaluation and treatment. Even blood pressure exceeding 120/80 may indicate pre-hypertension. Patient Language: Latvian Prescriptions: No Action ondansetron 4 mg tablet,disintegrating 4 mg PO Q6H PRN (Reason: nausea and vomiting) Qty: 14 0RF prednisone 50 mg tablet 50 mg PO DAILY Qty: 5 0RF Xarelto 2.5 mg tablet 2.5 mg PO BID cyanocobalamin (vitamin B-12) [Vitamin B-12] 1,000 mcg Tablet 1,000 mcg PO DAILY One-A-Day 50 Plus Tablet 1 tablet PO DAILY cinnamon bark [Cinnamon] 500 mg Capsule 1,000 mg PO DAILY cholecalciferol (vitamin D3) [Vitamin D3] 25 mcg (1,000 unit) Tablet 25 mcg PO DAILY [id number]-mjobpw [krill oil] 729-09-96-50 mg Capsule 1 cap PO DAILY Tumeric 1,000 mg 1,000 mg PO DAILY Tresiba U-100 Insulin 100 unit/mL solution 10 unit SUB-Q DAILY Rx Instructions: Take per insulin protocol Fiasp U-100 Insulin 100 unit/mL solution See Rx Instructions .ROUTE .COMPLEX Rx Instructions: take per protocol rosuvastatin 20 mg tablet 20 mg PO DAILY albuterol sulfate 90 mcg/actuation HFA aerosol inhaler 2 puff inhalation Q4-6H PRN (Reason: shortness of breath or wheezing) Qty: 8.5 0RF tramadol 50 mg tablet 50 mg PO Q8H PRN (Reason: Pain (Scale Score 1-3)) Qty: 21 0RF fluticasone furoate-vilanterol [Breo Ellipta] 100-25 mcg/dose blister with device 1 inh inhalation DAILY Qty: 60 0RF benzonatate 200 mg capsule 200 mg PO TID PRN (Reason: cough) Qty: 30 1RF amlodipine 10 mg tablet 10 mg PO DAILY Qty: 90 2RF valsartan-hydrochlorothiazide 320-25 mg tablet 1 tablet PO DAILY Qty: 90 1RF Follow-up/Referrals: Munir Dalton DO [Primary Care Provider] - Time of Disposition: 14:07
[2024-06-02 14:10] VITALS: BP 126/44; PULSE 74; O2SAT 99
== END 2024-06-02 14:10 | disposition home or self-care (01) ==
PROVIDERS: Emergency Provider Nurse Practitioner; PCP Internal Medicine
DX: S60.022A Contusion of left index finger without damage to nail, initial encounter (principal); S60.032A Contusion of left middle finger without damage to nail, initial encounter; X58.XXXA Exposure to other specified factors, initial encounter; Y99.0 Civilian activity done for income or pay; E11.9 Type 2 diabetes mellitus without complications; Z79.4 Long term (current) use of insulin; Z98.61 Coronary angioplasty status; Z79.01 Long term (current) use of anticoagulants
CPT/HCPCS: 73130; 90471; 90715; 99213; G0463

== ENCOUNTER 2024-09-29 12:43 | Emergency (ER) | payer OTHER, SELFPAY ==
--- NOTE | ~2024-09-29 | XR_ITS ---
XR knee LT min 4V Ordering provider: Gloria Elias PA-C History: . left knee pain . Comparison: None. FINDINGS: BONES: No acute fracture or dislocation. JOINT SPACES: Normal. SOFT TISSUES: Vascular calcifications. IMPRESSION: No acute osseous abnormality left knee. Consider MRI knee if there is concern for soft tissue internal derangement. Reviewed, dictated and finalized at location A.
--- NOTE | ~2024-09-29 | US_ITS ---
LEFT LOWER EXTREMITY VENOUS ULTRASOUND Ordering provider: Gloria Elias History: . left leg swelling, recent surgery . Comparison: None. FINDINGS: --COMMON FEMORAL: Patent and free of thrombus. Normal compressibility, phasic flow and augmentation. --PROXIMAL SUPERFICIAL FEMORAL: Patent and free of thrombus. Normal compressibility, phasic flow and augmentation. --DISTAL SUPERFICIAL FEMORAL: Patent and free of thrombus. Normal compressibility, phasic flow and au gmentation. --POPLITEAL: Patent and free of thrombus. Normal compressibility, phasic flow and augmentation. --POSTERIOR TIBIAL: Patent and free of thrombus. Normal compressibility, phasic flow and augmentation . IMPRESSION: Negative left lower extremity venous US. No deep vein thrombosis. Reviewed, dictated and finalized at location A.
--- OUTSIDE RECORDS SUMMARY | 2024-09-29 12:46 | XMS_ITS ---
Author Organization Unknown Medications Medication Instructions Effective Dates (start - stop) Status - - Compl eted tramadol hydrochloride 50 MG Oral Tablet - Completed - - Compl eted doxycycline hyclate 100 MG O ral Capsule - Completed insulin degludec 100 UNT/ML Injectable Solution [Tresiba] - Complet ed - - Compl eted - - Compl eted insulin degludec 100 UNT/ML Injectable Solution [Tresiba] - Complet ed - - Compl eted rosuvastatin calcium 20 MG O ral Tablet - Completed - - Compl eted gabapentin 300 MG Oral Capsule 2023-04-26 T00:00:00Z - Completed imiquimod 50 MG/ML Topical Cream T00:00:00Z - Completed insulin aspart, human 100 UN T/ML Injectable Solution [Fiasp] - Completed rivaroxaban 2.5 MG Oral Tabl et [Xarelto] - Completed insulin degludec 100 UNT/ML Injectable Solution [Tresiba] - Complet ed insulin aspart, human 100 UN T/ML Injectable Solution [Fiasp] - Completed gabapentin 300 MG Oral Capsule 2023-11-08 T00:00:00Z - Completed insulin degludec 100 UNT/ML Injectable Solution [Tresiba] - Complet ed collagenase 0.25 UNT/MG Topi amy Ointment [Santyl] - Completed rivaroxaban 2.5 MG Oral Tabl et [Xarelto] - Completed rivaroxaban 2.5 MG Oral Tabl et [Xarelto] - Completed hydrochlorothiazide 25 MG / losartan potassium 100 MG Oral Tablet - Complete d collagenase 0.25 UNT/MG Topi amy Ointment [Santyl] - Completed 30 ACTUAT fluticasone furoat e 0.1 MG/ACTUAT / vilanterol 0.025 MG/ACTUAT Dry Powder Inhaler [Breo] - C ompleted - - Compl eted ciprofloxacin 250 MG Oral Tablet T00:00:00Z - Completed doxycycline hyclate 100 MG O ral Capsule - Completed hydrochlorothiazide 25 MG / losartan potassium 100 MG Oral Tablet - Complete d gabapentin 300 MG Oral Capsule 2023-06-23 T00:00:00Z - Completed cefadroxil 500 MG Oral Capsule 2023-07-12 T00:00:00Z - Completed - - Compl eted hydrochlorothiazide 25 MG / losartan potassium 100 MG Oral Tablet - Complete d collagenase 0.25 UNT/MG Topi amy Ointment [Santyl] - Completed insulin aspart, human 100 UN T/ML Injectable Solution [Fiasp] - Completed hydrochlorothiazide 25 MG / losartan potassium 100 MG Oral Tablet - Complete d imiquimod 50 MG/ML Topical Cream T00:00:00Z - Completed collagenase 0.25 UNT/MG Topi amy Ointment [Santyl] - Completed gabapentin 300 MG Oral Capsule 2023-10-13 T00:00:00Z - Completed imiquimod 50 MG/ML Topical Cream T00:00:00Z - Completed - - Compl eted doxycycline hyclate 100 MG O ral Capsule - Completed {6 (azithromycin 250 MG Oral Tablet) } Pack - Completed gabapentin 300 MG Oral Capsule 2023-08-14 T00:00:00Z - Completed amoxicillin 875 MG / clavula rosita 125 MG Oral Tablet - Completed clindamycin 150 MG Oral Capsule 4T00:00:00Z - Completed imiquimod 50 MG/ML Topical Cream T00:00:00Z - Completed ondansetron 4 MG Disintegrat ing Oral Tablet - Completed rosuvastatin calcium 20 MG O ral Tablet - Completed insulin degludec 100 UNT/ML Injectable Solution [Tresiba] - Complet ed oxycodone hydrochloride 5 MG Oral Tablet - Completed insulin aspart, human 100 UN T/ML Injectable Solution [Fiasp] - Completed doxycycline hyclate 100 MG O ral Capsule - Completed doxycycline hyclate 100 MG O ral Capsule - Completed gabapentin 300 MG Oral Capsule 2023-03-22 T00:00:00Z - Completed gabapentin 300 MG Oral Capsule 2023-09-11 T00:00:00Z - Completed chlorhexidine gluconate 1.2 MG/ML Mouthwash - Completed clindamycin 300 MG Oral Capsule 2023-10-16 5T00:00:00Z - Completed rosuvastatin calcium 20 MG O ral Tablet - Completed - - Compl eted imiquimod 50 MG/ML Topical Cream T00:00:00Z - Completed codeine phosphate 2 MG/ML / guaifenesin 20 MG/ML Oral Solution - Co mpleted gabapentin 300 MG Oral Capsule 2023-05-23 T00:00:00Z - Completed rosuvastatin calcium 20 MG O ral Tablet - Completed insulin degludec 100 UNT/ML Injectable Solution [Tresiba] - Complet ed amoxicillin 875 MG / clavula rosita 125 MG Oral Tablet - Completed - - Compl eted - - Compl eted gabapentin 300 MG Oral Capsule 2023-07-18 T00:00:00Z - Completed rivaroxaban 2.5 MG Oral Tabl et [Xarelto] - Completed Patient Care team information Name Category Status Period Participants - - Proposed period not known -
--- OUTSIDE RECORDS SUMMARY | 2024-09-29 12:46 | XMS_ITS | Encounter Summary ---
Author Organization [facility] Address [address] [place] [address] Phone Care Team Providers Care Staff Editor Name Role Phone Pelon Bhat Primary Care Provider Mary Pelaez MD Primary Care Provider Encounter Details Date Type Department Care Team (Late st Contact Info) Description 09/06/2024 Results Follow-Up [facility] Endocrinology Metabolism and Lipid [address] [facility] 13th [place] [address] [place] [address] Sara Hawkins NP [address] [place] [address] Social History Tobacco Use Types Packs/Day Years Used Date Smoking Tobacco: Never Passive Smoke Exposure: Never Smokeless Tobacco: Never [facility] Utilities Answer Date Recorded In the past 12 months has [employer] electric, gas, oil, or water company threatened to shut off services in your home? No 08/22/2023 Social Connection and Isolat ion Panel [NHANES] Answer Date Recorded In a typical week, how many times do you talk on the phone with family, friends, or neighbors? More than three times a week 08/22/2023 How often do you get togethe r with friends or relatives? More than three times a week 08/22/2023 How often do you attend chur ch or anabaptism services? Never 08/22/2023 Do you belong to any clubs o r organizations such as methodist groups, unions, fraternal or athletic groups, or school groups? Yes 08/22/2023 How often do you attend meet ings of the clubs or organizations you belong to? More than 4 times per year 08/22/2023 Are you , , di vorced, , never , or living with a partner? 08/22/2023 AUDIT-C Answer Date Recorded Q1: How often do you have a drink containing alcohol? Never 08/28/2024 Q2: How many drinks containi ng alcohol do you have on a typical day when you are drinking? Patient does not drink Q3: How often do you have si x or more drinks on one occasion? Never 08/28/2024 Overall Financial Resource Strain (CARDIA) Answe r Date Recorded How hard is it for you to pa y for the very basics like food, housing, medical care, and heating? Not hard at all 08/22/2023 PHQ-2 Answer Date Recorded PHQ-2 Total Score (If total score is 3 or more points, staff should administer the PHQ-9) 0 09/07/2024 Hunger Vital Sign Answer Date Recorded Within the past 12 months, y ou worried that your food would run out before you got the money to buy more. Never true 07/24/19 25 Within the past 12 months, t he food you bought just didn't last and you didn't have money to get more. Never true 07/23/2024 PRAPARE - Transportation Answer Date Re corded In the past 12 months, has l ack of transportation kept you from medical appointments or from getting medications? No 12/2023 In the past 12 months, has l ack of transportation kept you from meetings, work, or from getting things needed for daily living? No 08/22/2023 Housing Stability Vital Sign Answer Rocael e Recorded In the last 12 months, was t here a time when you were not able to pay the mortgage or rent on time? No 08/22/2023 In the last 12 months, how many places have you lived? 1 08/22/2023 In the last 12 months, was t here a time when you did not have a steady place to sleep or slept in a assisted (including now)? No 08/22/2023 Personal Safety Answer Date Recorded Have you ever been in or are you currently in a harmful physical or emotional relationship or is someone making you feel afraid or unsafe? 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
--- OUTSIDE RECORDS SUMMARY | 2024-09-29 12:46 | XMS_ITS ---
Author Organization [facility] Address [address] [place], [place] [id number] Care Team Providers Care Well Surveying Engineer Name Role Phone ASHTYN ASHER Unavailable [phone] Pelon Bhat Unavailable Unavailable Allergies Allergen (clinical drug ingredient) Drug/Non Drug Allergy documented on EMR Reaction Allergy Type Onset Date Status Substance with penicillin structure and antibacterial mechanism of action (substance) Penicillins Reaction:Reacti on 1:Hives Drug Allergy 12/16/2021 active REASON FOR VISIT The patient reports that his left 5th toe is dark pink and painful. He has been using neosporin on it., Patient presents for at-risk foot care . The patient has painful toenails and calluses that arecausing difficulty with ambulation and shoegear. The onset is gradual Medications Medication SIG (Take, Route, Frequency, Duration) Notes Start Date End Date Status Clindamycin HCl 150 MG 1 capsule Orally 3 times a day for 10 days 08/27/2024 09/06/2024 Active traMADol HCl 50 MG Oral for 15 Days Active Losartan Potassium-HCTZ 100-25 MG Oral for 90 Days Active Xarelto 2.5 MG Oral for 90 Days Active Rosuvastatin Calcium 20 MG Oral for 90 Days Active Albuterol Sulfate HFA 108 (90 Base) MCG/ACT INHALE 2 PUFFS BY MOUTH EVERY 4 TO 6 HOURS NEEDED FOR SHORTNESS OF BREATH OR WHEEZING Inhalation for 17 Days Active Furosemide 40 MG TAKE 1 TABLET BY DENICE TH ONCE DAILY IN THE MORNING Oral for 30 Days Active Vital Signs Weight 180 lbs 08/27/2024 Weight-kg 81.65 kg 08/27/2024 Height 65 in 08/27/2024 Height-cm 165.1 cm 08/27/2024 BMI 29.95 kg/m2 08/27/2024 Encounters Encounter Location Date Provider Diagnosis [facility] [address] [place], [place] [id number] 08/27/2024 ASHTYN JUSTINLi Tinea unguium B35.1 ; Cellulitis of left toe L03.032 ; Acquired keratosis [keratoderma] palmaris et plantaris L85.1 ; Atherosclerosis of holy cross arteries of extremities with intermittent claudication, bilateral legs I70.213 ; Pain in right foot M79.671 and Pain in left foot M79.672 Assessments Encounter Date Diagnosis (ICD Code) Assessment Notes Treatment Notes Treatment Clinical Notes Section Notes 08/27/2024 Tinea unguium (ICD-10 - B35.1) Nails were debrided extensively with nail nippers and emery board, reducing length and girth to pink healthy tissue with any subungual debris and necrotic tissue removed 08/27/2024 Cellulitis of left toe (ICD-10 - L03.032) Discontinue neosporin. Infection Protocol: Patient instructed to observe foot for signs and symptoms of infection, including but not limited to: increased redness and warmth to the area, increased drainage from the area, foul odor, and/or presence of fever/chills/magdal[place] sea/vomiting. If patient experiences any of the above they are to call the office immediately, if someone is not present in the office then proceed to the nearest ER. 08/27/2024 Acquired keratosis [keratoderma] palmaris et plantaris (ICD-10 - L85.1) A total of 1 corns or calluses, as described in the note above, were cut and pared utilizing a #15 blade. Padding: Application of accomodative padding to offload pressure from area. 08/27/2024 Atherosclerosis of holy cross arteries of extremities with intermittent claudication, bilateral legs (ICD-10 - I70.213) 08/27/2024 Pain in right foot (ICD-10 - M79.671) 08/27/2024 Pain in left foot (ICD-10 - M79.672) Plan Of Treatment Medication Medication Name Sig Start Date Stop Date Notes Clindamycin HCl 150 MG 1 capsule Orally 3 times a day for 10 days 08/27/2024 09/06/2024 Treatment Notes Assessment Notes Tinea unguium Nails were debrided extensively with nail nippers and emery board, reducing length and girth to pink healthy tissue with any subungual debris and necrotic tissue removed Cellulitis of left toe Discontinue neosporin. Infection Protocol: Patient instructed to observe foot for signs and symptoms of infection, including but not limited to: increased redness and warmth to the area, increased drainage from the area, foul odor, and/or presence of fever/chills/nausea/vomiting. If patient experiences any of the above they are to call the office immediately, if someone is not present in the office then proceed to the nearest ER. Acquired keratosis [keratode rma] palmaris et plantaris A total of 1 corns or calluses, as described in the note above, were cut and pared utilizing a #15 blade. Padding: Application of accomodative padding to offload pressure from area. Next Appt Details Follow Up: 1 week; 10 - 12 w eeks, Reason: 1 week: Infection check. 10-12 weeks: At-Risk Foot care, sooner if problems develop. Provider Name:ASHTYN ASHER, 10:30:00 AM, [address], [address], [id number], Progress Notes * SEPTEMBER, JAQUANINDOB:1960 ([age] yo M)Acc No.[id number]:08/27/2024 Patient: CELENA QUINTANILLA Provider: Fior Asher DPM :1960 A ge:64 Y S ex:Male Date:08/27/2024 Address:[address] [place] [address], [address] [place], [place] [id number] Subjective: * Chief Complaints: * 1 . The patient reports that his left 5th toe is dark pink and painful. He has been using neosporin on it.. 2. Patient presents for at-risk foot care . The patient has painful toenails and calluses that are causing difficulty with ambulation and shoegear. The onset is gradual. * HPI: H PI: General care P atient presents to the office for diabetic foot care. Patient states that their nails are thickened, elongated and painful. Patient states that it is aggravated by shoe gear. Onset is gradual., Patient is taking prescription blood thinners., Date last seen by Dr. Bhat was 05/2024., Initials mca. * ROS: G eneral / Constitutional: Patient denies c hills, fever, weakness, night sweats. M usculoskeletal: Patient denies c hildhood foot problems, weakness. P eripheral Vascular: Patient complains of u lceration of feet. S kin: Patient denies d iscoloration, skin cancer. N eurologic: Patient denies b alance difficulty, confusion, difficulty speaking, dizziness. * Medical History: * Medications: T aking traMADol HCl 50 MG Tablet Oral , Taking Xarelto 2.5 MG Tablet Oral , Taking Losartan Potassium-HCTZ 100-25 MG Tablet Oral , Taking Rosuvastatin Calcium 20 MG Tablet Oral , Taking Furosemide 40 MG Tablet TAKE 1 TABLET BY MOUTH ONCE DAILY IN THE MORNING Oral , Taking Albuterol Sulfate HFA 108 (90 Base) MCG/ACT Aerosol Solution INHALE 2 PUFFS BY MOUTH EVERY 4 TO 6 HOURS NEEDED FOR SHORTNESS OF BREATH OR WHEEZING Inhalation , Medication List reviewed and reconciled with the patient * Allergies: P enicillins: Reaction:Reaction 1:Hives - Allergy - Onset Date 12/16/2021. Objective: * Vitals: W t:180lbs, Wt-k.65 kg, Ht: 65 in, Ht-cm: 165.1 cm, BMI:29.95Index, Body Surface Area: 1.93. * Examination: C onstitutional: Constitutional T he patient is awake, alert, well developed, well groomed and well nourished.. D ermatologic: Skin findings: S kin is thin, atrophic and lacking pedal hair. Hypertrophic / hyperkeratotic lesion: h yperkeratotic skin lesion on the medial aspect of the left 5th digit. the surrounding skin has slight erythema and mild calor, no active drainage. Nail pathology: N ails 1-5 left, 2-5 right a re elongated, thick, discolored, and dystrophic with subungual debris. They are painful to palpation. Ulcer: T here is no evidence of ulceration noted at this time. V ascular: Dorsalis pedis pulse: 1 /4, bilateral. Posterior tibial pulse: 1 /4, bilaterally. Capillary refill: l ess than 3 seconds. Edema: m ild, pitting edema, bilateral. N eurologic: Gross sensation G ross sensation is intact to light touch.. M usculoskeletal: Muscle Strength M uscle strength is 5/5 in regards to dorsiflexion, plantarflexion, inversion, and eversion in bilateral lower extremities.. Foot Structure T he foot structure is noted to be, normal, left. Absent right 5th digit.. Gait T here is normal gait noted. Assessment: * Assessment: 1. C ellulitis of left toe - L03.032 (Primary) 2 . T inea unguium - B35.1 3. A cquired keratosis [keratoderma] palmaris et plantaris - L85.1 4. A therosclerosis of holy cross arteries of extremities with intermittent claudication, bilateral legs - I70.213 5 . P ain in right foot - M79.671 6 . P ain in left foot - M79.672 Plan: * Treatment: 2. T inea unguium Notes: Nails were debrided extensively with nail nippers and emery board, reducing length and girth to pink healthy tissue with any subungual debris and necrotic tissue removed 3. A cquired keratosis [keratoderma] palmaris et plantaris Notes: A total of 1 corns or calluses, as described in the note above, were cut and pared utilizing a #15 blade. Padding: Application of accomodative padding to offload pressure from area. * Immunizations: Immunization record has been reviewed and updated. * Follow Up: 1 week; 10 - 12 weeks (Reason: 1 week: Infection check. 10-12 weeks: At-Risk Foot care, sooner if problems develop.) * Billing Information: * Visit Code: 59842 Office Visit, Est Pt., Level 3. * Procedure Codes: * Electronic signature of ASHTYN ASHER DPM on 09/29/2024 at 12:45 PM CDT Sign off status: Pending * Provider: Fior Asher DPM Date: 0 08/27/2024 Generated for Niurka shafer/Faxing/eTransmitting on: 0 09/29/2024 12:45 PM CDT History and Physical Notes * HPI (History of Present Illness) Category Sub-Category Detail Notes Category Not es HPI General care Patient presents to the office for diabetic foot care. Patient states that their nails are thickened, elongated and painful. Patient states that it is aggravated by shoe gear. Onset is gradual., Patient is taking prescription blood thinners., Date last seen by Dr. Bhat was 05/2024., Initials mca Examination Category Sub-Category Detail Notes Category Not es Dermatologic Skin findings: Skin is thin, at rophic and lacking pedal hair Nail pathology: Nails 1-5 left, 2-5 right are elongated, thick, discolored, and dystrophic with subungual debris. They are painful to palpation Hypertrophic / hyperkeratotic lesion: hy perkeratotic skin lesion on the medial aspect of the left 5th digit. the surrounding skin has slight erythema and mild calor, no active drainage Ulcer: There is no evidence of ulceration noted at this time Neurologic Gross sensation Gross sensation is intact to light touch. Vascular Dorsalis pedis pulse: 1/4, bilateral Edema: mild, pitting edema, bilateral Capillary refill: less than 3 seconds Posterior tibial pulse: 1/4, bilaterally Musculoskeletal Muscle Strength Muscle strength is 5/5 in regards to dorsiflexion, plantarflexion, inversion, and eversion in bilateral lower extremities. Foot Structure The foot structure i s noted to be, normal, left. Absent right 5th digit. Gait There is normal gait noted Constitutional Constitutional The patient is a wake, alert, well developed, well groomed and well nourished.
--- OUTSIDE RECORDS SUMMARY | 2024-09-29 12:46 | XMS_ITS | Continuity of Care Document ---
Author Organization [facility] Address [address] [facility] [place] [address] Phone Care Team Providers Care Heart Doctor Name Role Phone Monahan PT,MPT,ATC, Soham Unavailable Unavai lable Procedures Procedure Date Therapeutic Activities Therapeutic Exercise Neuromuscular Re-Ed Therapeutic Activities Neuromuscular Re-Ed Therapeutic Exercise Therapeutic Activities Neuromuscular Re-Ed Therapeutic Exercise Therapeutic Activities Neuromuscular Re-Ed Therapeutic Exercise Therapeutic Activities Neuromuscular Re-Ed Therapeutic Exercise Therapeutic Activities Neuromuscular Re-Ed Therapeutic Exercise Therapeutic Activities Neuromuscular Re-Ed Therapeutic Exercise Doc neg elder mal no plan PT Evaluation Moderate Complexity Therapeutic Activities Therapeutic Exercise Progress Note Therapeutic Activities Neuromuscular Re-Ed Therapeutic Exercise Therapeutic Activities Neuromuscular Re-Ed Therapeutic Exercise Manual Therapy Therapeutic Activities Neuromuscular Re-Ed Therapeutic Exercise Manual Therapy Therapeutic Activities Neuromuscular Re-Ed Therapeutic Exercise Manual Therapy Therapeutic Activities Neuromuscular Re-Ed Therapeutic Exercise Therapeutic Activities Neuromuscular Re-Ed Therapeutic Exercise PT Evaluation Moderate Complexity Therapeutic Activities Neuromuscular Re-Ed Advance Directives Directive Yes / No Effective Date File Name No Information Encounters Encounter Description Practice Location Reason(s) For Visit Diagnoses Date Provider Providers Copied on Encounter [facility] [employer] [address], [place], [place], [id number], tel:[phone] [place] No Information 4 [place], [place], . [facility] [employer], [place], [place], [id number], tel:[phone] [place] No Information 2 [address] [place] . [facility] [address] [place], [address]. tel:[phone] [facility] [address] [employer] [address], [place], [place], [id number], tel:[phone] [place] No Information 0- 4 [place] . Referring Provider: [facility] [address], [place], [address]. tel:[phone] [facility] [address] [employer], [place], [place], [id number], tel:[phone] [place] No Information 0 - 4 [place] . Referring Provider: [facility] [address], [place], [address]. tel:[phone] [facility] [employer], [place], [place], [id number], tel:[phone] [place] No Information Octavio-0 3- 4 [place] . Referring Provider: Kamila Cross [facility] [address], [place], [address]. tel:[phone] [facility], [address], [place], [place], [id number], [place] tel:[phone] [place] No Information September- 4 [place] . Referring Provider: Kamila Cross [facility] [address], [place], [address]. tel:[phone] [place] [address] [address], [place], [place], [id number], tel:[phone] [place] No Information 2 [address] [place] . Referring Provider: Kamila Cross [facility] [address], [place], [address]. tel:[phone] [place] [address], [address], [place], [place], [id number], [place] tel:[phone] [place] No Information 2 0 [address] [place] . Referring Provider: Kamila Cross [facility] [address], [place], [address]. tel:[phone] [place] [address], [place], [place], [id number], [place] tel:[phone] [place] No Information - 4 [place], [place], [place]. Referring Provider: Kamila Cross [facility] [address], [place], [address]. tel:[phone] [facility], [address], [place], [place], [id number], [place] tel:[phone] [place] No Information 2 [place]. . Referring Provider: [facility]. [facility] [address], [place], [place], [id number], tel:[phone] [place] No Information 2 [place]. . Referring Provider: [facility]. [facility] [place] [address], [place], [place], [id number], tel:[phone] [place] No Information 2 [place]. . Referring Provider: [facility] [address] [address], [place], [place], [id number], tel:[phone] [place] No Information 2 April [place]. . Referring Provider: [facility]. [facility] [address] [address], [place], [place], [id number], tel:[phone] [place] No Information 2 April [place]. . Referring Provider: [facility] [address], [place], [place], [id number], tel:[phone] [place] No Information 2 April [place]. . Referring Provider: [facility], [id number], tel:[phone] [place] No Information 2 April [place]. . Referring Provider: [facility]. Family History Family Member Type Diagnosis Age At Onset No Information Payers Payer name Insurance type Covered green party ID Authorshaguftaa kelsynia(s) [employer] CI [id number] Social History Type Description Quantity Date Captured Comments Sex Male Smoking Status No Information Chief Complaint And Reason For Visit No Information Reason For Referral Reason For Referral No Information History Of Present Illness Encounter Date Complaint History Of Prese nt Illness No Information Functional Status Date Functional Assessmen t No Information Instructions Date Instruction Additional Infor mation Giving encouragement to exercise Related to Overweight Giving encouragement to exercise Related to Overweight Assessments Type Assessment Date No Information Patient Care Teams Name Effective Dates (start - stop) Status Members No Information
--- OUTSIDE RECORDS SUMMARY | 2024-09-29 12:46 | XMS_ITS | Referral Summary ---
Author Organization [facility] Address [address] [place] [address] Care Team Providers Care Compensation Business Partner Name Role Phone Mary Pelaez MD Primary Care Provider Encounters Date Type Department Care Team Description 09/17/2024 5:01 AM CDT - 09/19/2024 2:21 PM CDT Hospital Encounter [facility] [address] [place] [address] Navarro Tariq MD Primary osteoarthritis of left hip (Primary Dx) Discharge Disposition: Discharge to home, home health skilled care 09/17/2024 7:15 AM CDT - 09/17/2024 9:50 AM CDT Surgery [facility] Operating Room [address] [place] [id number] Navarro Tariq MD ARTHROPLASTY TOTAL HIP 09/17/2024 7:09 AM CDT Anesthesia Event [facility] Operating Room [address] [place] [id number] Donald High MD Keeline, Monica Marie, MD 09/13/2024 Orders Only [facility] Endocrinology Metabolism and Lipid [address] [facility] 13th [place] [address] [place] [address] Sara Hawkins NP 09/12/2024 Orders Only [facility] Orthopaedic Surgery [address] [facility] Medical Office Building [address] [place] [address] Navarro Tariq MD 09/10/2024 Telephone [facility] Endocrinology Metabolism and Lipid [address] [facility] 5th [place] [address] [place] [address] Cailin Caputo, clinical laboratory medical director result comments 09/07/2024 Telephone [facility] 4th Floor [address] [place] [phone] Bárbara Caldera RN 09/07/2024 8:20 AM CDT Office Visit [facility] Clinic [address] [facility] 12th [place] [address] [place] [address] Mary Pelaez MD Screening for colon cancer (Primary Dx); Encounter to establish care; Screening for viral disease; Screening for colorectal cancer 09/06/2024 Results Follow-Up [facility] Endocrinology Metabolism and Lipid [address] [facility] 13th [place] [address] [place] [address] Sara Hawkins NP 09/05/2024 9:30 AM CDT Lab [facility] Endocrinology Metabolism and Lipid [address] [facility] 12th [place] [address] [place] [address] Type 1 diabetes mellitus with polyneuropathy (HCC); Hypercholesterolemia 09/05/2024 8:20 AM CDT Office Visit [facility] Endocrinology Metabolism and Lipid [address] [facility] 13th [place] [address] [place] [address] Maxwell Aiken MD Type 1 diabetes mellitus with polyneuropathy (HCC) (Primary Dx); Vitamin D deficiency; Hypercholesterolemia 08/28/2024 8:45 AM CDT Lab [facility] [address] [place] [address] Primary osteoarthritis of left hip; Left hip pain; Vitamin D deficiency 08/28/2024 8:30 AM CDT Pre-Admission Testing [facility] Pre-Anesthesia Testing [address] [place] [address] 08/28/2024 10:15 AM CDT Office Visit [facility] Orthopaedic Surgery [address] [facility] Medical Office Building [address] [place] [phone] Navarro Tariq MD Unilateral primary osteoarthritis, left hip (Primary Dx) 08/24/2024 Telephone [facility] Surgery [address] [facility] Floor 1 [place] [phone] Scottie Trent MD 08/22/2024 9:00 AM CDT Office Visit [facility] Ophthalmology [address] [facility] 6th Floor, [address] [place] [address] Alondra Ruggiero, OD 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 associated with type 2 diabetes mellitus (HCC) (Primary Dx); Mild nonproliferative diabetic retinopathy of left eye with macular edema associated with type 2 diabetes mellitus (HCC); Combined forms of age-related cataract of both eyes 08/22/2024 8:50 AM CDT Imaging Exam [facility] Ophthalmology [address] [facility] 6th [place] [address] 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 associated with type 2 diabetes mellitus (HCC) 08/10/2024 Telephone [facility] Endocrinology Metabolism and Lipid [address] [facility] 5th [place] [address] [place] [phone] Cailin Caputo RN 07/23/2024 10:00 AM CDT [facility] [address] [facility] 4th Floor [address] [place] [phone] Shankar Weber, DPM Type 1 diabetes mellitus with polyneuropathy (HCC) [E10.42] (Primary Dx); Tinea unguium; Type 1 diabetes mellitus with diabetic neuropathy, unspecified (HCC); Pain of toe of left foot; Pre-ulcerative calluses from Last 3 Months Allergies Active Allergy Reactions Criticality Noted Date Comments Penicillins Rash Medium 08/18/23- Reported rash to penicillin as a child, without recurrence for >10 years. PEN-FAST score of 0, likely either never was a true allergy or no longer active allergy. Medications cyanocobalamin, vitamin B-12, (VITAMIN B-12 ORAL)Indications:s upplement Take 1 tablet by mouth every morning Active cholecalciferol, vitamin D3, (VITAMIN D3 ORAL)Indications:s upplement Take 1 tablet by mouth every morning Active glucagon (BAQSIMI) 3 mg/actuation spray,non-aerosolI ndications:Type 1 diabetes mellitus with complication (HCC),Type 1 diabetes mellitus with diabetic polyneuropathy (HCC) Administer 1 spray (3 mg total) into one nostril as needed (for hypoglycemia) For severe low blood sugar. (dispense three 2-packs) 4 each 3 024 Active rivaroxaban (Xarelto) 2.5 mg tabletIndications: Peripheral Arterial Thromboembolism Prevention Take 1 tablet (2.5 mg total) by mouth 2 (two) times a day 60 tablet 11 024 Active insulin aspart (NovoLOG) 100 unit/mL vial for injectionIndicatio ns:Type 1 diabetes mellitus with complication (HCC) Inject under the skin 1 unit for every 10 grams of carbs plus correction of 1:25>150 max TDD 40 units daily 40 mL 3 024 Active blood-glucose sensor ([employer] G7 Sensor) deviceIndications: Type 1 diabetes mellitus with complication (HCC) Use one sensor every 10 days to check blood sugar 4 times daily 9 each 3 024 Active valsartan-hydrochl orothiazide (DIOVAN-HCT) 320-25 mg per tabletIndications: hypertension Take 1 tablet by mouth every morning 025 Active amLODIPine (NORVASC) 10 mg tabletIndications: hypertension Take 1 tablet (10 mg total) by mouth nightly Active insulin degludec (TRESIBA) 100 unit/mL vial for injectionIndicatio ns:type 1 diabetes mellitus Inject 14 Units under the skin nightly Active melatonin 5 mg tabletIndications: sleep Take 0.5 tablets (2.5 mg total) by mouth nightly Active insulin syr/ndl U100 half danielle (BD Veo Insulin Syr, half unit,) 0.3 mL 31 gauge x 15/64 syringeIndications :Type 1 diabetes mellitus with complication (HCC) USE TO INJECT INSULIN 4 -5 TIMES A DAY DIRECTED 500 each 3 Active rosuvastatin (CRESTOR) 40 mg tabletIndications: Type 1 diabetes mellitus with complication (HCC) Take 1 tablet (40 mg total) by mouth daily 30 tablet 11 025 2025 Active furosemide (LASIX) 20 mg tablet Take 1 tablet (20 mg total) by mouth daily 30 tablet 1 Active oxyCODONE (ROXICODONE) 5 mg immediate release tabletIndications: Pain Take 1 tablet (5 mg total) by mouth every 4 (four) hours as needed for pain (Breakthrough Pain) 30 tablet Active pregabalin (LYRICA) 75 mg capsuleIndications :Postoperative Acute Pain Take 1 capsule (75 mg total) by mouth 2 (two) times a day for 14 days 28 capsule 025 2024 Active aspirin 81 mg enteric coated tablet Take 1 tablet (81 mg total) by mouth 2 (two) times a day 60 tablet 025 2024 Active acetaminophen 500 mg capsuleIndications :Pain Take 2 capsules (1,000 mg total) by mouth every 8 (eight) hours 90 tablet Active senna-docusate (PERICOLACE) 8.6-50 mgIndications:cons tipation Take 2 tablets by mouth 2 (two) times a day 80 tablet Active meloxicam (MOBIC) 15 mg tabletIndications: Pain Take 1 tablet (15 mg total) by mouth daily 30 tablet [address] (PROTONIX) 20 mg EC tabletIndications: Mucositis Prophylaxis Take 1 tablet (20 mg total) by mouth daily FOR GI PROTECTION WHILE TAKING MELOXICAM 30 tablet 025 2024 Active traMADoL (ULTRAM) 50 mg tablet Take 1 tablet (50 mg total) by mouth every 8 (eight) hours as needed for pain 21 tablet Active TURMERIC ORALIndications:isabel pplement Take 1 tablet by mouth every morning 2024 Discontinued(S top Taking at Discharge) cinnamon bark 500 mg capsuleIndications :supplement Take 1 capsule (500 mg total) by mouth every morning 2024 Discontinued(S top Taking at Discharge) multivitamin capsuleIndications :Vitamin Deficiency Prevention Take 1 capsule by mouth every morning 2024 Discontinued(S top Taking at Discharge) imiquimod (ALDARA) 5 % creamIndications:S cales on Scalp Apply 1 packet topically nightly Pt states has been told to hold by MD-last used 08/07 023 2024 Discontinued rosuvastatin (CRESTOR) 20 mg tabletIndications: Hypercholesterolem ia TAKE 1 TABLET DAILY 90 tablet 3 024 2024 Discontinued(A lternate therapy) insulin syr/ndl U100 half danielle (BD Veo Insulin Syr, half unit,) 0.3 mL 31 gauge x 15/64 syringeIndications :Type 1 diabetes mellitus with complication (HCC) USE TO INJECT INSULIN 4 TIMES A DAY DIRECTED 400 each 3 024 2024 Discontinued(R eorder) furosemide (LASIX) 20 mg tablet Take 1 tablet (20 mg total) by mouth daily 60 tablet 3 024 2024 Discontinued(R eorder) jtasw-dn-2-dha-epa -phospho-ast 1,724-760-52-80 mg capsuleIndications :supplement Take 1 tablet by mouth every morning 2024 Discontinued(S top Taking at Discharge) acetaminophen (TYLENOL) 500 mg tabletIndications: Pain Take 2 tablets (1,000 mg total) by mouth every 6 (six) hours as needed for pain 2024 Discontinued(S top Taking at Discharge) diphenhydrAMINE-ac etaminophen (TYLENOL PM) 25-500 mg tabletIndications: Insomnia Take 2 tablets by mouth nightly 2024 Discontinued(S top Taking at Discharge) clindamycin (CLEOCIN) 150 mg capsuleIndications :Skin/Soft Tissue Infection Take 1 capsule (150 mg total) by mouth 3 (three) times a day 025 2024 Discontinued rosuvastatin (CRESTOR) 40 mg tabletIndications: Type 1 diabetes mellitus with complication (HCC) Take 1 tablet (40 mg total) by mouth daily 30 tablet 11 025 2024 Discontinued(A lternate therapy) insulin syr/ndl U100 half danielle (BD Veo Insulin Syr, half unit,) 0.3 mL 31 gauge x 15/64 syringeIndications :Type 1 diabetes mellitus with complication (HCC) USE TO INJECT INSULIN 4 -5 TIMES A DAY DIRECTED 500 each 3 025 2024 Discontinued(A lternate therapy) mupirocin (BACTROBAN) 2 % ointment Apply topically 2 (two) times a day for 5 days APPLY TO NOSTRILS TWICE A DAY FOR 5 DAYS PRIOR TO SURGERY. 22 g 025 2024 Discontinued(S top Taking at Discharge) traMADoL (ULTRAM) 50 mg tablet Take 1 tablet (50 mg total) by mouth every 8 (eight) hours as needed for pain 42 tablet 025 2024 Discontinued(R eorder) Active Problems Problem Noted Date Diagnosed Date Primary osteoarthritis of left hip 07/09/2024 Left hip pain 07/09/2024 Ulcer of toe of right foot, with necrosis of bon e 08/19/2023 Type 1 diabetes mellitus with polyneuropathy 09/2023 Type I diabetes mellitus wit h peripheral circulatory disorder 08/19/2023 Toe infection 08/17/2023 Assessment & Plan (08/18/2023 5:39 PM CDT): 63 year old man, hx of DM1, HTN, PAD s/p 2x angioplasty. Longstanding history of R foot vascular insufficiency/diabetic foot ulcers, already s/p R 5th toe partial amputation in 2021. Current issue is a 2 year history of a R great toe ulcer refractory to aggressive podiatric care, angioplasty, and hyperbaric oxygen. Already s/p several courses of doxycycline, amounting to at least 1 months worth of therapy with no clear improvement in size. Admitted to [facility] due to hyperglycemia, currently with what appears to be exposed bone at base of ulcer but no local or systemic signs of spread of infection, no report of recent changes that would be suggestive of superinfection of ulcer. Briefly placed on cefepime/vancomycin on 08/16-08/17, now stopped. In summary, this is a 63 year old man with a longstanding vascular/diabetic R great toe ulcer, almost certainly with some component of chronic osteomyelitis given exposed bone at base of ulcer, but I suspect given appearance and history that infection is a relatively minimal contributor to the persistence of the ulcer, more likely due to chronic vascular insufficiency. Recommendations: -Would stop all antibiotics including patient's oral doxycycline. -I discussed extensively with the patient and his . They are reportedly amenable to amputation of the R toe. I did evp general counsel them that while ID was happy to help with the treatment of infection, in my experience I considered it unlikely that treating the infection component of the ulcer was likely to lead to closure of the wound given it's somewhat small part of causing that persistent wound, and that amputation was much more likely (and indeed may be the only possible avenue) for successful elimination of this ulcer at this time. -If patient undergoes amputation, please ensure aerobic/anaerobic cultures of the amputation margin are taken, and please send margin to pathology for evaluation of whether there is evidence of microscopic osteomyelitis at the margin. While awaiting those results, would place the patient on empiric amoxicillin/clavulanate 875/125mg PO BID and doxycycline 100mg PO BID until the above tests demonstrate no evidence of osteomyelitis or infection at the margin (please contact ID for additional assistance if there is evidence of osteomyelitis at the resection margin). -If amputation is not being considered at this time, would keep patient off antibiotics, and schedule outpatient needle bone biopsy of the osteomyelitic bone to be sent for aerobic/anaerobic culture and pathology after patient has been off antibiotics for at least 2 weeks. Please have patient call and schedule ID clinic appointment for AFTER bone biopsy is done, at which time decisions on treatment based on biopsy results will be made. -Would NOT recommend antibiotic treatment decisions be made on the basis of the culture results from the wound debridement cultures taken on 08/16. Wound cultures are unreliable in identifying pathogenic bacteria in diabetic osteomyelitis, as they are mostly account manager sales representative of colonizing bacteria on the surface of the wound and can lead to improperly targeted or excessively broad treatment. -While patient's worse than normal hyperglycemia may be related in a fashion to the low level inflammation caused by a chronic bone infection, in itself it is not a sign of systemic involvement and is not an indication for empiric therapy of this bone infection, instead a methodical approach to treatment either with amputation or bone cultures/targeted antibiotic therapy is our recommended approach. -ID signing off at this time, will follow patient peripherally while inpatient, please contact ID Team 4 with any additional infectious concerns/questions. Right hallux osteomyelitis 07/11/2023 Atherosclerosis of [place] of right lower extremity with intermittent claudication 03/08/2023 [facility] current use of insulin 10/26/2022 Osteomyelitis of right foot 12/13/2021 Assessment & Plan (09/19/2023 2:44 PM CDT): -Patient presents for a post hospital visit. He has completed 3.5 weeks of augmenting for the treatment of a right big toe osteomyelitis. -We will continue the Augmentin for an additional 2.5 weeks to completed 6 weeks of antibiotics -We will repeat labs today (ESR, CRP, CBC, CMP) -Encouraged follow up with podiatry to have his sutures removed. I encourage him to wash above the incision site as his foot still has the marker from surgery from almost 4 week ago. - Discussed with patient the rational for treatment, culture results, risk of recurrent infection, signs/symptoms of recurrent infection, and to contact ID clinic with any questions or concerns. PAD (peripheral artery disease) 09/09/2021 Overview (09/09/2021): Added automatically from request for surgery [id number] Assessment & Plan (10/07/2021 10:18 AM CDT): -S/P right tibial angioplasty in August 2021 Vitamin D deficiency 07/03/2019 Mild nonproliferative diabet ic retinopathy of left eye with macular edema associated with type 2 diabetes mellitus 05/07/2019 Assessment & Plan (08/22/2024 1:06 PM CDT): Stable DME (IR cysts), best-corrected visual acuity (BVA) remains good Pt ed. Stressed BG control (HbA1C<7) to reduce the risk for diabetic ocular complications. Lab Results Component Value Date HGBA1C 7.2 02/20/2024 Assessment & Plan (02/21/2024 11:48 AM CDT): Two perifoveal cysts, stable best-corrected visual acuity (BVA). Pt elects to monitor. Pt ed. Stressed BG control (HbA1C<7) to reduce the risk for diabetic ocular complications. Lab Results Component Value Date HGBA1C 7.2 02/20/2024 Assessment & Plan (07/07/2023 11:21 AM DANCE ARTIST): Stable, chronic mild ME, small CR cysts, pt elects to monitor Mild non-proliferative diabetic retinopathy (NPDR) left eye (OS), no DME Lab Results Component Value Date HGBA1C 7.2 05/03/2023 Pt ed. Stressed BG control (HbA1C<7) to reduce the risk for diabetic ocular complications. Assessment & Plan (01/04/2023 3:18 PM CDT): Mild non-proliferative diabetic retinopathy (NPDR) left eye (OS). Pt deferred DFE today, repeat next visit. History of DME left eye (OS); there is minimal IR thickening that is stable, not visually significant. Stressed BP control. Improve HbA1C to <7. Lab Results Component Value Date HGBA1C 8.6 (H) 09/20/2022 Assessment & Plan (06/10/2022 5:21 PM DANCE ARTIST): Few small intraretinal cysts in the right eye relatively stable. Pt ed. Stressed BG control (HbA1C<7) to reduce the risk for diabetic ocular complications. Assessment & Plan (10/20/2021 9:12 AM CDT): No DME on OCT - Pt ed. Stressed BG control (HbA1C<7) to reduce the risk for diabetic ocular complications. Lab Results Component Value Date HGBA1C 7.4 (A) 10/07/2021 Assessment & Plan (03/26/2021 9:27 AM DANCE ARTIST): Stressed BG control (HbA1C<7) to reduce the risk for diabetic ocular complications. Lab Results Component Value Date HGBA1C 7.8 12/17/2020 Assessment & Plan (11/18/2020 1:48 PM CDT): Stressed the importance of continued strict blood glucose control. Assessment & Plan (05/27/2020 9:19 AM DANCE ARTIST): Pt ed. Stressed BG control (HbA1C<7) to reduce the risk for diabetic ocular complications. RTC 6 mo DFE. Lab Results Component Value Date HGBA1C 7.9 05/21/2020 Assessment & Plan (02/15/2020 10:31 AM CDT): Pt ed. Stressed BG control. Lab Results Component Value Date HGBA1C 7.8 02/13/2020 Assessment & Plan (05/10/2019 12:56 PM DANCE ARTIST): Lab Results Component Value Date HGBA1C 7.7 02/21/2019 Patient was educated on the importance of maintaining tight blood glucose control in order to reduce the risk for diabetic ocular complications.RTC 6 months DFE. Retinal artery occlusion, branch, left 9 Assessment & Plan (07/07/2023 11:21 AM DANCE ARTIST): Lonstanding, obtain VF Assessment & Plan (05/10/2019 12:54 PM DANCE ARTIST): Noted previously. Carotid ultrasound without significant stenosis. Signs/sx CVA reviewed. Assessment & Plan (01/02/2019 8:33 AM CDT): Inner retinal loss on OCT inferior temporal arcade. Pt ed. Obtain carotid ultrasound. Combined forms of age-related cataract of both e yes 09/11/2018 Assessment & Plan (08/22/2024 1:07 PM CDT): Pt is asymptomatic. Defer cataract extraction (CE) until signs/sx indicate. Recommend UV eye protection. Assessment & Plan (02/21/2024 11:48 AM CDT): Pt is asymptomatic. Defer cataract extraction (CE) until signs/sx indicate. Recommend UV eye protection. Assessment & Plan (07/07/2023 11:21 AM DANCE ARTIST): Defer cataract surgery until signs and symptoms indicate. Pt was educated on the diagnosis. Recommend daily UV protection. RTC 12 mo/sooner with any visual changes. Assessment & Plan (06/10/2022 5:22 PM DANCE ARTIST): Not v/s. Defer cataract surgery until signs and symptoms indicate. Pt ed. Assessment & Plan (10/20/2021 9:18 AM CDT): Defer cataract surgery until signs and symptoms indicate. Pt was educated on the diagnosis. Recommend daily UV protection. Assessment & Plan (03/26/2021 9:27 AM DANCE ARTIST): Defer cataract surgery until signs and symptoms indicate. Pt was educated on the diagnosis. Assessment & Plan (11/18/2020 1:47 PM CDT): Pt is asymptomatic. Defer cataract extraction (CE) until s/sx indicate. Rec UV eye protection. Assessment & Plan (05/27/2020 8:42 AM DANCE ARTIST): Pt asymptomatic. Check refraction 6 mo. Assessment & Plan (02/15/2020 10:33 AM CDT): Pt is asymptomatic. Defer cataract extraction (CE) until s/sx indicate. Assessment & Plan (05/10/2019 12:55 PM DANCE ARTIST): Defer cataract surgery until signs and symptoms indicate. Pt was educated on the diagnosis. Recommend daily UV protection. Assessment & Plan (09/11/2018 2:04 PM CDT): Mild with good best-corrected visual acuity (BVA). Pt ed. Monitor at this time. Recommend UV eye protection. Refractive error 09/11/2018 Assessment & Plan (02/21/2024 11:20 AM CDT): Updated Spec Rx today Assessment & Plan (01/04/2023 3:17 PM CDT): Cont with hab Rx Assessment & Plan (10/20/2021 9:13 AM CDT): Continue with hab Rx Assessment & Plan (03/26/2021 9:24 AM DANCE ARTIST): Continue with hrx Assessment & Plan (05/10/2019 12:55 PM DANCE ARTIST): Continue with current glasses Rx Assessment & Plan (09/11/2018 2:29 PM CDT): Cont. With current Rx; 1-2 mos old. Sinus drainage 05/04/2018 Involuntary quiver 12/28/2016 Skin callus 06/09/2016 Dermatophytosis 06/09/2016 Diabetic hypoglycemia 06/27/2013 Hypercholesterolemia 07/23/2008 Assessment & Plan (10/05/2021 8:58 AM CDT): -Last LDL was 89 in June 2021 -Will continue statin as it is being tolerated without side effects Assessment & Plan (02/21/2019 9:11 AM CDT): Continue simvastatin. Tolerating without side effects. Assessment & Plan (08/16/2018 9:12 AM CDT): Continue statin; recheck lipid panel with annual labs in April,. Edema 11/27/2007 Essential hypertension 11/27/2007 Assessment & Plan (10/07/2021 10:18 AM CDT): -BP today is 131/51 -Will continue same antihypertensive medications at this time. Assessment & Plan (02/21/2019 9:11 AM CDT): Blood pressure 129/72. Continue same medications. Assessment & Plan (08/16/2018 9:10 AM CDT): Hypertension is stable. Continue current treatment regimen. Dietary sodium restriction. Weight loss. Regular aerobic exercise. Continue current medications. Blood pressure will be reassessed at the next regular appointment. Resolved Problems Problem Noted Date Diagnosed Date Resolved Date Type 1 diabetes mellitus with complication 09/11/2018 04/25/2024 Assessment & Plan (01/02/2019 8:32 AM CDT): No DME on today's FEB. Pt ed. RTC 6 mo. Pt ed to RTC sooner with changes. Assessment & Plan (09/11/2018 2:28 PM CDT): Small Mas visible on OCT but without IRF. best-corrected visual acuity (BVA) optimal. Patient was educated on the importance of maintaining tight blood glucose control in order to reduce the risk for diabetic ocular complications. RTC 3 mos with DFE and macular OCT Type 1 diabetes mellitus wit h other specified complication 02/23/2006 07/26/2022 Assessment & Plan (10/07/2021 10:18 AM CDT): -Currently taking MDI and using Paul -A1C on 10/07/21 was 7.4% -Paul download indicates inconsistent pattern of hyperglycemia excursions. On the AGP, it appears his rise is consistent starting around 3 am-noon. However, looking at day to day data, there are many overnights where his pattern is very flat. Suspect that his breakfast/ insulin dosing at breakfast is a contributor. He politely declines, as he states he has had diabetes almost 60 years and feels his carb counting is accurate. Recommend he focus on his breakfast foods/carb counting/insulin dosing, and will keep me posted. -Discussed diet and activity modifications. -Advised to call with any concerns/complaints regarding glucose readings -Eye exam is up to date -Foot exam : Following with podiatry every 2 weeks and vascular surgery Assessment & Plan (02/21/2019 9:10 AM CDT): The patient has type 1 diabetes, currently using multiple daily injections for his diabetes management. A1c at today's visit of February 21, 2019 was 7.7%. His fasting blood glucose readings have been persistently elevated over the past 2 weeks. He states this is been due to allergy symptoms/allergy medication. Discussed increasing his Tresiba but he declines at this time. Therefore will continue same insulin doses. He is not interested in an insulin pump. His eye exam is up-to-date. Labs are reviewed and are up-to-date. Flu shot was offered but he declined. He will return for scheduled follow-up in June with Dr. Capellan. Assessment & Plan (08/16/2018 9:15 AM CDT): Diabetes is worsening. A1c was 8.0% in April,; 8.4% today. Continue current treatment regimen. Reminded to bring in blood sugar diary at next visit. Dietary recommendations for ADA diet. Regular aerobic exercise. Discussed sick day management. Discussed foot care. Reminded to get yearly retinal exam. Diabetes will be reassessed in 3 months. Continue current insulin regimen Monitor blood glucose 3-4 times/day to adjust insulin coverage for meals - Levemir 16 units at bedtime- HE DID NOT DO WELL ON BASAGLAR - FIASP 1 unit for every 15 GMS of carbs plus 1 unit for every 25 points over 125. Please contact the diabetes center with any questions/concerns. Immunizations Immunization Administration Dates Next Due Influenza, Quadrivalent, Lu l Culture-based MDCK, Preservative Free, Antibiotic Free, Intramuscular 02/21/2021,03/04/2020 TD Preservative Free 05/04/2003 Social History Tobacco Use Types Packs/Day Years Used Date Smoking Tobacco: Never Passive Smoke Exposure: Never Smokeless Tobacco: Never Tobacco Cessation:Counseling Given: Not Answered [facility] [place] Utilities Answer Date Recorded In the past 12 months has [email or web address], gas, oil, or water [employer] threatened to shut off services in your [...] often do you attend chur ch or yazidism services? Never 08/22/2023 Do you belong to any clubs o r organizations such as presybeterian groups, unions, fraternal or athletic groups, or school groups? Yes 08/22/2023 How often do you attend meet ings of the clubs or organizations you belong to? More than 4 times per year 08/22/2023 Are you , , di vorced, , never , or living with a partner? 08/22/2023 AUDIT-C Answer Date Recorded Q1: How often do you have a drink containing alcohol? Never 09/17/2024 Q2: How many drinks containi ng alcohol do you have on a typical day when you are drinking? Patient does not drink Q3: How often do you have si x or more drinks on one occasion? Never 09/17/2024 Overall Financial Resource Strain (CARDIA) Answe r [...] place to sleep or slept in a residential (including now)? No 08/22/2023 Personal Safety Answer Date Recorded Have you ever been in or are you currently in a harmful physical or emotional relationship or is someone making you feel afraid or unsafe? 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 Gender Identity Male 12/17/2020 8:53 AM CDT Sexual Orientation Not on file Last Filed Vital Signs Vital Sign Reading Time Taken Comments Blood Pressure 133/41 09/19/2024 12:05 PM CDT Pulse 89 09/19/2024 12:05 PM CDT Temperature 36.9 C (98.4 F) 09/19/2024 7:32 AM CDT Respiratory Rate 18 09/19/2024 7:32 AM CDT Oxygen Saturation 97% 09/19/2024 12:05 PM CDT Inhaled Oxygen Concentration - - Weight 79.6 kg (175 lb 6.4 oz) 09/17/2024 5:19 A M CDT Height 162.6 cm (5' 4 ) 09/17/2024 5:19 AM CDT Body Mass Index 30.11 09/17/2024 5:19 AM CDT Plan of Treatment Not on file Medical Devices Implanted Type Area Plumber'S Helper Device Identifier Shelf Expiration Date Model / Serial / Lot Catalyst Stem Collared Stem High Offset Size 3 Implanted:Qty: 1 on 09/17/2024 at [facility] Other - see comments Left: Hip [employer] 04/19/2031 [id number] / / [id number] [employer]/ Ortho R3 52mm 3 Hole Hip Standard Shell Acetabular Poly [id number] - [id number] Implanted:Qty: 1 on 09/17/2024 at [facility] Left: Hip [employer]/O rtho 10/06/2033 [id number] / / [id number] [employer]/ Ortho R3 52mm 36mm Flexible Locking Tab Hip 0d Liner Acetabular Xlpe [id number] - [id number] Implanted:Qty: 1 on 09/17/2024 at [facility] Left: Hip [employer]/O rtho 08/25/2030 [id number] / / [id number] [employer]/ Ortho 36mm Hip +8mm 04/28 Head Femoral Oxinium [id number] - [id number] Implanted:Qty: 1 on 09/17/2024 at [facility] Left: Hip [employer]/O rtho 11/25/2033 [id number] / / [id number] Procedures Procedure Name Priority Date/Time Associated Diagnosis Comments POCT GLUCOSE DEVICE Routine 09/19/2024 12:22 PM CDT POCT GLUCOSE DEVICE Routine 09/19/2024 7 :31 AM CDT EGFR STAT 09/19/2024 6:56 AM CDT HEMOGLOBIN AND HEMATOCRIT STAT 09/19/2024 6:56 AM CDT BASIC METABOLIC PANEL STAT 09/19/2024 6:56 AM CDT POCT GLUCOSE DEVICE Routine 09/19/2024 2 :08 AM CDT POCT GLUCOSE DEVICE Routine 09/18/2024 10:06 PM CDT POCT GLUCOSE DEVICE Routine 09/18/2024 9 :07 PM CDT POCT GLUCOSE DEVICE Routine 09/18/2024 8 :01 PM CDT POCT GLUCOSE DEVICE Routine 09/18/2024 6 :43 PM CDT POCT GLUCOSE DEVICE Routine 09/18/2024 4 :57 PM CDT POCT GLUCOSE DEVICE Routine 09/18/2024 3 :30 PM CDT POCT GLUCOSE DEVICE Routine 09/18/2024 1 :46 PM CDT POCT GLUCOSE DEVICE Routine 09/18/2024 11:41 AM CDT POCT GLUCOSE DEVICE Routine 09/18/2024 7 :35 AM CDT EGFR Routine 09/18/2024 5:11 AM CDT HEPATIC FUNCTION PANEL Routine 09/18/2024 5:11 AM CDT CBC WITHOUT DIFFERENTIAL Routine 09/18/2024 5:1 [id number]|2024-09-29 12:46:00|2024-09-29 12:46:00|XMS_ITS|JOSEPHG QUENTIN|External Medical Summaries|[id number]|" Clinical Summary Created on: September 29, 2024 Samir Gamez III : 1960 Sex: Male Author Organization [facility] Address [address] [address] [place] [address] Care Team Providers Care Compensation Business Partner Name Role Phone Mary Pelaez MD Primary Care Provider Allergies Active Allergy Reactions Criticality Noted Date Comments Penicillins Rash Medium 08/18/23- Reported rash to penicillin as a child, without recurrence for >10 years. PEN-FAST score of 0, likely either never was a true allergy or no longer active allergy. Medications cyanocobalamin, vitamin B-12, (VITAMIN B-12 ORAL)Indications:s upplement Take 1 tablet by mouth every morning Active cholecalciferol, vitamin D3, (VITAMIN D3 ORAL)Indications:s upplement Take 1 tablet by mouth every morning Active glucagon (BAQSIMI) 3 mg/actuation spray,non-aerosolI ndications:Type 1 diabetes mellitus with complication (HCC),Type 1 diabetes mellitus with diabetic polyneuropathy (HCC) Administer 1 spray (3 mg total) into one nostril as needed (for hypoglycemia) For severe low blood sugar. (dispense three 2-packs) 4 each 3 024 Active rivaroxaban (Xarelto) 2.5 mg tabletIndications: Peripheral Arterial Thromboembolism Prevention Take 1 tablet (2.5 mg total) by mouth 2 (two) times a day 60 tablet 11 Active insulin aspart (NovoLOG) 100 unit/mL vial for injectionIndicatio ns:Type 1 diabetes mellitus with complication (HCC) Inject under the skin 1 unit for every 10 grams of carbs plus correction of 1:25>150 max TDD 40 units daily 40 mL 3 Active blood-glucose sensor (Dexcom G7 Sensor) deviceIndications: Type 1 diabetes mellitus with complication (HCC) Use one sensor every 10 days to check blood sugar 4 times daily 9 each 3 Active valsartan-hydrochl orothiazide (DIOVAN-HCT) 320-25 mg per tabletIndications: hypertension Take 1 tablet by mouth every morning Active amLODIPine (NORVASC) 10 mg tabletIndications: hypertension Take 1 tablet (10 mg total) by mouth nightly Active insulin degludec (TRESIBA) 100 unit/mL vial for injectionIndicatio ns:type 1 diabetes mellitus Inject 14 Units under the skin nightly Active melatonin 5 mg tabletIndications: sleep Take 0.5 tablets (2.5 mg total) by mouth nightly Active insulin syr/ndl U100 half danielle (BD Veo Insulin Syr, half unit,) 0.3 mL 31 gauge x 15/64 syringeIndications :Type 1 diabetes mellitus with complication (HCC) USE TO INJECT INSULIN 4 -5 TIMES A DAY DIRECTED 500 each 3 Active rosuvastatin (CRESTOR) 40 mg tabletIndications: Type 1 diabetes mellitus with complication (HCC) Take 1 tablet (40 mg total) by mouth daily 30 tablet 11 025 2025 Active furosemide (LASIX) 20 mg tablet Take 1 tablet (20 mg total) by mouth daily 30 tablet 1 Active oxyCODONE (ROXICODONE) 5 mg immediate release tabletIndications: Pain Take 1 tablet (5 mg total) by mouth every 4 (four) hours as needed for pain (Breakthrough Pain) 30 tablet Active pregabalin (LYRICA) 75 mg capsuleIndications :Postoperative Acute Pain Take 1 capsule (75 mg total) by mouth 2 (two) times a day for 14 days 28 capsule 2024 Active aspirin 81 mg enteric coated tablet Take 1 tablet (81 mg total) by mouth 2 (two) times a day 60 tablet 025 2024 Active acetaminophen 500 mg capsuleIndications :Pain Take 2 capsules (1,000 mg total) by mouth every 8 (eight) hours 90 tablet Active senna-docusate (PERICOLACE) 8.6-50 mgIndications:cons tipation Take 2 tablets by mouth 2 (two) times a day 80 tablet Active meloxicam (MOBIC) 15 mg tabletIndications: Pain Take 1 tablet (15 mg total) by mouth daily 30 tablet [address] (PROTONIX) 20 mg EC tabletIndications: Mucositis Prophylaxis Take 1 tablet (20 mg total) by mouth daily FOR GI PROTECTION WHILE TAKING MELOXICAM 30 tablet 025 2024 Active traMADoL (ULTRAM) 50 mg tablet Take 1 tablet (50 mg total) by mouth every 8 (eight) hours as needed for pain 21 tablet Active TURMERIC ORALIndications:isabel pplement Take 1 tablet by mouth every morning 2024 Discontinued(S top Taking at Discharge) cinnamon bark 500 mg capsuleIndications :supplement Take 1 capsule (500 mg total) by mouth every morning 2024 Discontinued(S top Taking at Discharge) multivitamin capsuleIndications :Vitamin Deficiency Prevention Take 1 capsule by mouth every morning 2024 Discontinued(S top Taking at Discharge) imiquimod (ALDARA) 5 % creamIndications:S cales on Scalp Apply 1 packet topically nightly Pt states has been told to hold by MD-last used 08/07 023 2024 Discontinued rosuvastatin (CRESTOR) 20 mg tabletIndications: Hypercholesterolem ia TAKE 1 TABLET DAILY 90 tablet 3 024 2024 Discontinued(A lternate therapy) insulin syr/ndl U100 half danielle (BD Veo Insulin Syr, half unit,) 0.3 mL 31 gauge x 15/64 syringeIndications :Type 1 diabetes mellitus with complication (HCC) USE TO INJECT INSULIN 4 TIMES A DAY DIRECTED 400 each 3 024 2024 Discontinued(R eorder) furosemide (LASIX) 20 mg tablet Take 1 tablet (20 mg total) by mouth daily 60 tablet 3 024 2024 Discontinued(R eorder) cixfk-xr-0-dha-epa -phospho-ast 1,453-873-15-80 mg capsuleIndications :supplement Take 1 tablet by mouth every morning 2024 Discontinued(S top Taking at Discharge) acetaminophen (TYLENOL) 500 mg tabletIndications: Pain Take 2 tablets (1,000 mg total) by mouth every 6 (six) hours as needed for pain 2024 Discontinued(S top Taking at Discharge) diphenhydrAMINE-ac etaminophen (TYLENOL PM) 25-500 mg tabletIndications: Insomnia Take 2 tablets by mouth nightly 2024 Discontinued(S top Taking at Discharge) clindamycin (CLEOCIN) 150 mg capsuleIndications :Skin/Soft Tissue Infection Take 1 capsule (150 mg total) by mouth 3 (three) times a day 025 2024 Discontinued rosuvastatin (CRESTOR) 40 mg tabletIndications: Type 1 diabetes mellitus with complication (HCC) Take 1 tablet (40 mg total) by mouth daily 30 tablet 11 025 2024 Discontinued(A lternate therapy) insulin syr/ndl U100 half danielle (BD Veo Insulin Syr, half unit,) 0.3 mL 31 gauge x 15/64 syringeIndications :Type 1 diabetes mellitus with complication (HCC) USE TO INJECT INSULIN 4 -5 TIMES A DAY DIRECTED 500 each 3 025 2024 Discontinued(A lternate therapy) mupirocin (BACTROBAN) 2 % ointment Apply topically 2 (two) times a day for 5 days APPLY TO NOSTRILS TWICE A DAY FOR 5 DAYS PRIOR TO SURGERY. 22 g 025 2024 Discontinued(S top Taking at Discharge) traMADoL (ULTRAM) 50 mg tablet Take 1 tablet (50 mg total) by mouth every 8 (eight) hours as needed for pain 42 tablet 025 05/15/ 2025 Discontinued(R eorder) Active Problems Problem Noted Date Diagnosed Date Primary osteoarthritis of left hip 07/09/2024 Left hip pain 07/09/2024 Ulcer of toe of right foot, with necrosis of bon e 08/19/2023 Type 1 diabetes mellitus with polyneuropathy 09/2023 Type I diabetes mellitus wit h peripheral circulatory disorder 08/19/2023 Toe infection 08/17/2023 Assessment & Plan (08/18/2023 5:39 PM CDT): 63 year old man, hx of DM1, HTN, PAD s/p 2x angioplasty. Longstanding history of R foot vascular insufficiency/diabetic foot ulcers, already s/p R 5th toe partial amputation in 2021. Current issue is a 2 year history of a R great toe ulcer refractory to aggressive podiatric care, angioplasty, and hyperbaric oxygen. Already s/p several courses of doxycycline, amounting to at least 1 months worth of therapy with no clear improvement in size. Admitted to [facility] due to hyperglycemia, currently with what appears to be exposed bone at base of ulcer but no local or systemic signs of spread of infection, no report of recent changes that would be suggestive of superinfection of ulcer. Briefly placed on cefepime/vancomycin on 08/16-08/17, now stopped. In summary, this is a 63 year old man with a longstanding vascular/diabetic R great toe ulcer, almost certainly with some component of chronic osteomyelitis given exposed bone at base of ulcer, but I suspect given appearance and history that infection is a relatively minimal contributor to the persistence of the ulcer, more likely due to chronic vascular insufficiency. Recommendations: -Would stop all antibiotics including patient's oral doxycycline. -I discussed extensively with the patient and his . They are reportedly amenable to amputation of the R toe. I did evp general counsel them that while ID was happy to help with the treatment of infection, in my experience I considered it unlikely that treating the infection component of the ulcer was likely to lead to closure of the wound given it's somewhat small part of causing that persistent wound, and that amputation was much more likely (and indeed may be the only possible avenue) for successful elimination of this ulcer at this time. -If patient undergoes amputation, please ensure aerobic/anaerobic cultures of the amputation margin are taken, and please send margin to pathology for evaluation of whether there is evidence of microscopic osteomyelitis at the margin. While awaiting those results, would place the patient on empiric amoxicillin/clavulanate 875/125mg PO BID and doxycycline 100mg PO BID until the above tests demonstrate no evidence of osteomyelitis or infection at the margin (please contact ID for additional assistance if there is evidence of osteomyelitis at the resection margin). -If amputation is not being considered at this time, would keep patient off antibiotics, and schedule outpatient needle bone biopsy of the osteomyelitic bone to be sent for aerobic/anaerobic culture and pathology after patient has been off antibiotics for at least 2 weeks. Please have patient call and schedule ID clinic appointment for AFTER bone biopsy is done, at which time decisions on treatment based on biopsy results will be made. -Would NOT recommend antibiotic treatment decisions be made on the basis of the culture results from the wound debridement cultures taken on 08/16. Wound cultures are unreliable in identifying pathogenic bacteria in diabetic osteomyelitis, as they are mostly account manager sales representative of colonizing bacteria on the surface of the wound and can lead to improperly targeted or excessively broad treatment. -While patient's worse than normal hyperglycemia may be related in a fashion to the low level inflammation caused by a chronic bone infection, in itself it is not a sign of systemic involvement and is not an indication for empiric therapy of this bone infection, instead a methodical approach to treatment either with amputation or bone cultures/targeted antibiotic therapy is our recommended approach. -ID signing off at this time, will follow patient peripherally while inpatient, please contact ID Team 4 with any additional infectious concerns/questions. Right hallux osteomyelitis 07/11/2023 Atherosclerosis of [place] of right lower extremity with intermittent claudication 03/08/2023 [facility] current use of insulin 10/26/2022 Osteomyelitis of right foot 12/13/2021 Assessment & Plan (09/19/2023 2:44 PM CDT): -Patient presents for a post hospital visit. He has completed 3.5 weeks of augmenting for the treatment of a right big toe osteomyelitis. -We will continue the Augmentin for an additional 2.5 weeks to completed 6 weeks of antibiotics -We will repeat labs today (ESR, CRP, CBC, CMP) -Encouraged follow up with podiatry to have his sutures removed. I encourage him to wash above the incision site as his foot still has the marker from surgery from almost 4 week ago. - Discussed with patient the rational for treatment, culture results, risk of recurrent infection, signs/symptoms of recurrent infection, and to contact ID clinic with any questions or concerns. 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 Stressed BG control (HbA1C<7) to reduce the risk for diabetic ocular complications. Lab Results Component Value Date HGBA1C 7.2 02/20/2024 Assessment & Plan (02/21/2024 11:48 AM CDT): Two perifoveal cysts, stable best-corrected visual acuity (BVA). Pt elects to monitor. Pt ed. Stressed BG control (HbA1C<7) to reduce the risk for diabetic ocular complications. Lab Results Component Value Date HGBA1C 7.2 02/20/2024 Assessment & Plan (07/07/2023 11:21 AM DANCE ARTIST): Stable, chronic mild ME, small CR cysts, pt elects to monitor Mild non-proliferative diabetic retinopathy (NPDR) left eye (OS), no DME Lab Results Component Value Date HGBA1C 7.2 05/03/2023 Pt ed. Stressed BG control (HbA1C<7) to reduce the risk for diabetic ocular complications. Assessment & Plan (01/04/2023 3:18 PM CDT): Mild non-proliferative diabetic retinopathy (NPDR) left eye (OS). Pt deferred DFE today, repeat next visit. History of DME left eye (OS); there is minimal IR thickening that is stable, not visually significant. Stressed BP control. Improve HbA1C to <7. Lab Results Component Value Date HGBA1C 8.6 (H) 09/20/2022 Assessment & Plan (06/10/2022 5:21 PM DANCE ARTIST): Few small intraretinal cysts in the right eye relatively stable. Pt ed. Stressed BG control (HbA1C<7) to reduce the risk for diabetic ocular complications. Assessment & Plan (10/20/2021 9:12 AM CDT): No DME on OCT - Pt ed. Stressed BG control (HbA1C<7) to reduce the risk for diabetic ocular complications. Lab Results Component Value Date HGBA1C 7.4 (A) 10/07/2021 Assessment & Plan (03/26/2021 9:27 AM DANCE ARTIST): Stressed BG control (HbA1C<7) to reduce the risk for diabetic ocular complications. Lab Results Component Value Date HGBA1C 7.8 12/17/2020 Assessment & Plan (11/18/2020 1:48 PM CDT): Stressed the importance of continued strict blood glucose control. Assessment & Plan (05/27/2020 9:19 AM DANCE ARTIST): Pt ed. Stressed BG control (HbA1C<7) to reduce the risk for diabetic ocular complications. RTC 6 mo DFE. Lab Results Component Value Date HGBA1C 7.9 05/21/2020 Assessment & Plan (02/15/2020 10:31 AM CDT): Pt ed. Stressed BG control. Lab Results Component Value Date HGBA1C 7.8 02/13/2020 Assessment & Plan (05/10/2019 12:56 PM DANCE ARTIST): Lab Results Component Value Date HGBA1C 7.7 02/21/2019 Patient was educated on the importance of maintaining tight blood glucose control in order to reduce the risk for diabetic ocular complications.RTC 6 months DFE. Retinal artery occlusion, branch, left Assessment & Plan (07/07/2023 11:21 AM DANCE ARTIST): Lonstanding, obtain VF Assessment & Plan (05/10/2019 12:54 PM DANCE ARTIST): Noted previously. Carotid ultrasound without significant stenosis. Signs/sx CVA reviewed. Assessment & Plan (01/02/2019 8:33 AM CDT): Inner retinal loss on OCT inferior temporal arcade. Pt ed. Obtain carotid ultrasound. Combined forms of age-related cataract of both e yes 09/11/2018 Assessment & Plan (08/22/2024 1:07 PM CDT): Pt is asymptomatic. Defer cataract extraction (CE) until signs/sx indicate. Recommend UV eye protection. Assessment & Plan (02/21/2024 11:48 AM CDT): Pt is asymptomatic. Defer cataract extraction (CE) until signs/sx indicate. Recommend UV eye protection. Assessment & Plan (07/07/2023 11:21 AM DANCE ARTIST): Defer cataract surgery until signs and symptoms indicate. Pt was educated on the diagnosis. Recommend daily UV protection. RTC 12 mo/sooner with any visual changes. Assessment & Plan (06/10/2022 5:22 PM DANCE ARTIST): Not v/s. Defer cataract surgery until signs and symptoms indicate. Pt ed. Assessment & Plan (10/20/2021 9:18 AM CDT): Defer cataract surgery until signs and symptoms indicate. Pt was educated on the diagnosis. Recommend daily UV protection. Assessment & Plan (03/26/2021 9:27 AM DANCE ARTIST): Defer cataract surgery until signs and symptoms indicate. Pt was educated on the diagnosis. Assessment & Plan (11/18/2020 1:47 PM CDT): Pt is asymptomatic. Defer cataract extraction (CE) until s/sx indicate. Rec UV eye protection. Assessment & Plan (05/27/2020 8:42 AM DANCE ARTIST): Pt asymptomatic. Check refraction 6 mo. Assessment & Plan (02/15/2020 10:33 AM CDT): Pt is asymptomatic. Defer cataract extraction (CE) until s/sx indicate. Assessment & Plan (05/10/2019 12:55 PM DANCE ARTIST): Defer cataract surgery until signs and symptoms indicate. Pt was educated on the diagnosis. Recommend daily UV protection. Assessment & Plan (09/11/2018 2:04 PM CDT): Mild with good best-corrected visual acuity (BVA). Pt ed. Monitor at this time. Recommend UV eye protection. Refractive error 09/11/2018 Assessment & Plan (02/21/2024 11:20 AM CDT): Updated Spec Rx today Assessment & Plan (01/04/2023 3:17 PM CDT): Cont with hab Rx Assessment & Plan (10/20/2021 9:13 AM CDT): Continue with hab Rx Assessment & Plan (03/26/2021 9:24 AM DANCE ARTIST): Continue with hrx Assessment & Plan (05/10/2019 12:55 PM DANCE ARTIST): Continue with current glasses Rx Assessment & Plan (09/11/2018 2:29 PM CDT): Cont. With current Rx; 1-2 mos old. Sinus drainage 05/04/2018 Involuntary quiver 12/28/2016 Skin callus 06/09/2016 Dermatophytosis 06/09/2016 Diabetic hypoglycemia 06/27/2013 Hypercholesterolemia 07/23/2008 Assessment & Plan (10/05/2021 8:58 AM CDT): -Last LDL was 89 in June 2021 -Will continue statin as it is being tolerated without side effects Assessment & Plan (02/21/2019 9:11 AM CDT): Continue simvastatin. Tolerating without side effects. Assessment & Plan (08/16/2018 9:12 AM CDT): Continue statin; recheck lipid panel with annual labs in April,. Edema 11/27/2007 Essential hypertension 11/27/2007 Assessment & Plan (10/07/2021 10:18 AM CDT): -BP today is 131/51 -Will continue same antihypertensive medications at this time. Assessment & Plan (02/21/2019 9:11 AM CDT): Blood pressure 129/72. Continue same medications. Assessment & Plan (08/16/2018 9:10 AM CDT): Hypertension is stable. Continue current treatment regimen. Dietary sodium restriction. Weight loss. Regular aerobic exercise. Continue current medications. Blood pressure will be reassessed at the next regular appointment. Resolved Problems Problem Noted Date Diagnosed Date Resolved Date Type 1 diabetes mellitus with complication 09/11/2018 04/25/2024 Assessment & Plan (01/02/2019 8:32 AM CDT): No DME on today's OCT. Pt ed. RTC 6 mo. Pt ed to RTC sooner with changes. Assessment & Plan (09/11/2018 2:28 PM CDT): Small Mas visible on OCT but without IRF. best-corrected visual acuity (BVA) optimal. Patient was educated on the importance of maintaining tight blood glucose control in order to reduce the risk for diabetic ocular complications. RTC 3 mos with DFE and macular OCT Type 1 diabetes mellitus wit h other specified complication 02/23/2006 07/26/2022 Assessment & Plan (10/07/2021 10:18 AM CDT): -Currently taking MDI and using Paul -A1C on 10/07/21 was 7.4% -Paul download indicates inconsistent pattern of hyperglycemia excursions. On the AGP, it appears his rise is consistent starting around 3 am-noon. However, looking at day to day data, there are many overnights where his pattern is very flat. Suspect that his breakfast/ insulin dosing at breakfast is a contributor. He politely declines, as he states he has had diabetes almost 60 years and feels his carb counting is accurate. Recommend he focus on his breakfast foods/carb counting/insulin dosing, and will keep me posted. -Discussed diet and activity modifications. -Advised to call with any concerns/complaints regarding glucose readings -Eye exam is up to date -Foot exam : Following with podiatry every 2 weeks and vascular surgery Assessment & Plan (02/21/2019 9:10 AM CDT): The patient has type 1 diabetes, currently using multiple daily injections for his diabetes management. A1c at today's visit of February 21, 2019 was 7.7%. His fasting blood glucose readings have been persistently elevated over the past 2 weeks. He states this is been due to allergy symptoms/allergy medication. Discussed increasing his Tresiba but he declines at this time. Therefore will continue same insulin doses. He is not interested in an insulin pump. His eye exam is up-to-date. Labs are reviewed and are up-to-date. Flu shot was offered but he declined. He will return for scheduled follow-up in June with Dr. Capellan. Assessment & Plan (08/16/2018 9:15 AM CDT): Diabetes is worsening. A1c was 8.0% in April,; 8.4% today. Continue current treatment regimen. Reminded to bring in blood sugar diary at next visit. Dietary recommendations for ADA diet. Regular aerobic exercise. Discussed sick day management. Discussed foot care. Reminded to get yearly retinal exam. Diabetes will be reassessed in 3 months. Continue current insulin regimen Monitor blood glucose 3-4 times/day to adjust insulin coverage for meals - Levemir 16 units at bedtime- HE DID NOT DO WELL ON BASAGLAR - FIASP 1 unit for every 15 GMS of carbs plus 1 unit for every 25 points over 125. Please contact the diabetes center with any questions/concerns. Encounters Date Type Department Care Team Description 09/17/2024 7:15 AM CDT - 09/17/2024 9:50 AM CDT Surgery [facility] Operating Room [address] [place] [address] Navarro Tariq MD ARTHROPLASTY TOTAL HIP 09/17/2024 7:09 AM CDT Anesthesia Event [facility] Operating Room [address] [place], [place] [address] Donald Hihg MD Keeline, Monica Marie, MD 09/17/2024 5:01 AM CDT - 09/19/2024 2:21 PM CDT Hospital Encounter [facility] [address] [place] [address] Navarro Tariq MD Primary osteoarthritis of left hip (Primary Dx) Discharge Disposition: Discharge to home, home health skilled care 09/13/2024 Orders Only [facility] Endocrinology Metabolism and Lipid [address] [facility] 13th [place] [address] [place] [address] Sara Hawkins NP 09/12/2024 Orders Only [facility] Orthopaedic Surgery [address] [facility] Medical Office Building [address] [place] [id number] Navarro Tariq MD 09/10/2024 Telephone [facility] Endocrinology Metabolism and Lipid [address] [facility] 5th [place] [address] [place] [address] Cailin Caputo RN lab result comments 09/07/2024 8:20 AM CDT Office Visit [facility] Clinic [address] [facility] 12th [place] [address] [place] [address] Mary Pelaez MD Screening for colon cancer (Primary Dx); Encounter to establish care; Screening for viral disease; Screening for colorectal cancer 09/07/2024 Telephone [facility] [address] [place] [address] Health 4th Floor [address] [place] [address] Bárbara Caldera RN 09/06/2024 Results Follow-Up [facility] Endocrinology Metabolism and Lipid [address] [facility] 13th [place] [address] [place] [address] Sara Hawkins NP 09/05/2024 9:30 AM CDT Lab [facility] Endocrinology Metabolism and Lipid [address] [facility] 12th [place] [address] [place] [address] Type 1 diabetes mellitus with polyneuropathy (HCC); Hypercholesterolemia 09/05/2024 8:20 AM CDT Office Visit [facility] Endocrinology Metabolism and Lipid [address] [facility] 13th [place] [address] [place] [address] Maxwell Aiken MD Type 1 diabetes mellitus with polyneuropathy (HCC) (Primary Dx); Vitamin D deficiency; Hypercholesterolemia 08/28/2024 10:15 AM CDT Office Visit [facility] Orthopaedic Surgery [address] [facility] Office Building [address] [place] [address] Navarro Tariq MD Unilateral primary osteoarthritis, left hip (Primary Dx) 08/28/2024 8:45 AM CDT Lab [facility] [address] [place] [address] Primary osteoarthritis of left hip; Left hip pain; Vitamin D deficiency 08/28/2024 8:30 AM CDT Pre-Admission Testing [facility] Pre-Anesthesia Testing [address] [place] [address] 08/24/2024 Telephone [facility] Surgery [address] [facility] Floor 1 [place] [address] Scottie Trent MD 08/22/2024 9:00 AM CDT Office Visit [facility] Ophthalmology [address] [facility] 6th Floor, [address] [place] [facility] [place] [address] Alondra Ruggiero, OD 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 associated with type 2 diabetes mellitus (HCC) 08/10/2024 Telephone [facility] Endocrinology Metabolism and Lipid [address] [facility] 5th [place] [address] [place] [address] Cailin Caputo RN 07/23/2024 10:00 AM CDT [facility] [address] [facility] 4th Floor [address] [place] [address] Shankar Weber, DPM Type 1 diabetes mellitus with polyneuropathy (HCC) [E10.42] (Primary Dx); Tinea unguium; Type 1 diabetes mellitus with diabetic neuropathy, unspecified (HCC); Pain of toe of left foot; Pre-ulcerative calluses from Last 3 Months Immunizations Immunization Administration Dates Next Due Influenza, Quadrivalent, Lu l Culture-based MDCK, Preservative Free, Antibiotic Free, Intramuscular 02/21/2021,03/04/2020 TD Preservative Free 05/04/2003 Surgical History Surgery Date Site/Laterality Comments FLUORO GUIDED ASPIRATION OR INJECTION LARGE JOINT LEFT 10/21/2022 Left Left hip ANGIOPLASTY 09/16/2021 Right Right Lower Extremity STEROID INJECTION KNEE 02/13/2023 - 03/15/2023 Left Medical History Medical History Date Comments Diabetes mellitus (HCC) Type I D M dxd 1963-- Has Freestyle Paul CGM PAD (peripheral artery disease) Hypertension Dxd ~2019 Hyperlipidemia Treated with sta tin Carotid artery stenosis < 50% Bi lateral ICA per duplex 2019 Family History Medical History Relation Name Comments Diabetes type I Brother Type 1 Diabe karol Mellitus - (Added by TW Conv) Diabetes type I Other Type 1 Diabe karol Mellitus - (Added by TW Conv) Anesthesia problems Neg Hx Relation Name Status Comments Brother Other Social History Tobacco Use Types Packs/Day Years Used Date Smoking Tobacco: Never Passive Smoke Exposure: Never Smokeless Tobacco: Never Tobacco Cessation:Counseling Given: Not Answered [facility] Utilities Answer Date Recorded In the past 12 months has th e electric, gas, oil, or water company threatened [...] often do you attend chur ch or yazidism services? Never 08/22/2023 Do you belong to any clubs o r organizations such as presybeterian groups, unions, fraternal or athletic groups, or school groups? Yes 08/22/2023 How often do you attend meet ings of the clubs or organizations you belong to? More than 4 times per year 08/22/2023 Are you , , di vorced, , never , or living with a partner? 08/22/2023 AUDIT-C Answer Date Recorded Q1: How often do you have a drink containing alcohol? Never 09/17/2024 Q2: How many drinks containi ng alcohol do you have on a typical day when you are drinking? Patient does not drink Q3: How often do you have si x or more drinks on one occasion? Never 09/17/2024 Overall Financial Resource Strain (CARDIA) Answe r [...] place to sleep or slept in a residential (including now)? No 08/22/2023 Personal Safety Answer Date Recorded Have you ever been in or are you currently in a harmful physical or emotional relationship or is someone making you feel afraid or unsafe? 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 Gender Identity Male 12/17/2020 8:53 AM CDT Sexual Orientation Not on file Obstetrics History Last Filed Vital Signs Vital Sign Reading Time Taken Comments Blood Pressure 133/41 09/19/2024 12:05 PM CDT Pulse 89 09/19/2024 12:05 PM CDT Temperature 36.9 C (98.4 F) 09/19/2024 7:32 AM CDT Respiratory Rate 18 09/19/2024 7:32 AM CDT Oxygen Saturation 97% 09/19/2024 12:05 PM CDT Inhaled Oxygen Concentration - - Weight 79.6 kg (175 lb 6.4 oz) 09/17/2024 5:19 A M CDT Height 162.6 cm (5' 4 ) 09/17/2024 5:19 AM CDT Body Mass Index 30.11 09/17/2024 5:19 AM CDT Plan of Treatment Health Maintenance Due Date Last Done Comments Colon Cancer Screening-Colonoscopy 1961 Foot Exam 1961 Hepatitis C Screening 1961 Prostate Cancer Screening-PSA 1961 Hepatitis B Screening 1979 Regular Well Visit/Exam 18-64 1979 Pneumococcal vaccine <65 (1 of 2 - PCV) 1980 DTaP/Tdap/Td Vaccine (1 - Tdap) 2003 3 Zoster Vaccine (1 of 2) 2011 Covid-19 Vaccine (3 - 2023-2 5 season) 2024 03/08/2021, 07/18/2020 TSH Level 01/30/2024 01/29/2023, 022 07/2021, 05/21/2020, Additional history exists Influenza Vaccine (Season Ended) 2025 02/22/20, 03/04/2020 Hemoglobin A1C 02/27/2025 08/28/2024, 100 11/2023, 11/10/2023, Additional history exists Dilated Eye Exam 08/17/2025 08/17/2024, , 01/04/2023, Additional history exists Albumin Creatinine Ratio, Urine 09/05/2025 09/05/2024, 01/29/2023, 07/08/2021, Additional history exists Lipid Panel 09/05/2025 09/05/2024, 01/14, 12/13/2021, Additional history exists Depression Screening 09/07/2025 09/07/2024 eGFR 09/19/2025 09/19/2024, 10/2024, 08/28/2024, Additional history exists Medical Devices Implanted Type Area Plumber'S Helper Device Identifier Shelf Expiration Date Model / Serial / Lot Catalyst Stem Collared Stem High Offset Size 3 Implanted:Qty: 1 on 09/17/2024 at [facility] Other - see comments Left: Hip [employer]hew 04/19/2031 [id number] / / [id number] [employer]/ Ortho R3 52mm 3 Hole Hip Standard Shell Acetabular Poly [id number] - [id number] Implanted:Qty: 1 on 09/17/2024 at [facility] Left: Hip [employer]/O rtho 10/06/2033 [id number] / / [id number] [employer]/ Ortho R3 52mm 36mm Flexible Locking Tab Hip 0d Liner Acetabular Xlpe [id number] - [id number] Implanted:Qty: 1 on 09/17/2024 at [facility] Left: Hip [employer]/O rtho 08/25/2030 [id number] / / [id number] [employer]/ Ortho 36mm Hip +8mm 12/14 Head Femoral Oxinium [id number] - [id number] Implanted:Qty: 1 on 09/17/2024 at [facility] Left: Hip [employer]hew/Mi/Pierre rtho 11/25/2033 [id number] / / [id number] Procedures Procedu
--- OUTSIDE RECORDS SUMMARY | 2024-09-29 12:46 | XMS_ITS | Continuity of Care Document ---
Author Organization [facility] Address [address] [place] [address] Phone Care Team Providers Care Wash Tank Tender Name Role Phone Wayne OD, Slim Unavailable Unavailable Procedures Procedure Date No Charge Glasses Check Eye Exam & Treatment Refraction Office/outpatient Visit, Est Office/outpatient Visit, Est Office/outpatient Visit, Est Advance Directives Directive Yes / No Effective Date File Name No Information Encounters Encounter Description Practice Location Reason(s) For Visit Diagnoses Date Provider Providers Copied on Encounter [facility], [address] [place] [address] [address], [place], [place], [id number], [place] tel:[phone] [facility] No Information Nov- 5-201 0 Wayne OD Slim. [address] , [address], [place], [place], [place], [place]. tel:[phone] [facility], [address] [place] [address] [address], [place], [place], [id number], [place] tel:[phone] [facility] No Information 9-201 0 Wayne OD Slim. [address] , [address], [place], [address], [place]. tel:[phone] Office/outpat ient Visit, [facility], [address] [place] [address] [address], [place], [place], [id number], [place] tel:[phone] [facility] No Information Sep-3 0-201 0 Wayne OD Slim. [address] [facility] [address] , [address], [place], [address], [place]. tel:[phone] Office/outpat ient Visit, [facility] [place], [address], [place], [place], [id number], [place] tel:[phone] [facility] No Information Sep-2 3-201 0 Wayne OD Slim. [address] [facility] [address] , [address], [place], [address], [place]. tel:[phone] Office/outpat ient Visit, [facility] [place], [address], [place], [place], [id number], [place] tel:[phone] [facility] No Information Sep-1 6-201 0 Wayne OD Slim. [address] [facility] [address] , [address], [place], [address], [place]. tel:[phone] Family History Family Member Type Diagnosis Age At Onset No Information Payers Payer name Insurance type Covered alliance party ID Authoriza tion(s) No Information Social History Type Description Quantity Date Captured Comments Sex Male Smoking Status No Information Chief Complaint And Reason For Visit No Information Reason For Referral Reason For Referral No Information History Of Present Illness Encounter Date Complaint History Of Prese nt Illness No Information Functional Status Date Functional Assessmen t No Information Instructions Date Instruction Additional Infor mation No Information Assessments Type Assessment Date No Information Patient Care Teams Name Effective Dates (start - stop) Status Members No Information
--- OUTSIDE RECORDS SUMMARY | 2024-09-29 12:47 | XMS_ITS ---
Author Name Auto Generated, Auto Generated Organization [facility] Address [address] [place] [address] Phone [phone] Care Team Providers Care Medicaid Billing Clerk Name Role Phone Virgen Barnes Unavailable Unavailable Navarro Tariq Unavailable [phone] Functional Status No Results Mental Status No Results Allergies and Intolerances Name Onset Date Reaction Severity Penicillins (Allergy) TueSeptember 16 18:03:00 EDT 20 25 Encounters Program Name Primary Diagnosis Admission Date/Time Dis charge Date/Time Home Care Aftercare following joint replacement surgery TueSeptember 19 20:00:00 EDT 2024 Medications Medication Directions Start Date End Date amLODIPine 10 mg tablet 1 TABLET Oral Ev saad 1 Day for 1 Day TueSeptember 21 01:00:00 EDT 2024September 22 00:59:00 EDT 2024 Aspirin Low-Strength 81 mg chewable tablet 1 tablet TABLET,CHEWABLE Oral 1 Time Daily for 2 Days TueSeptember 21 01:00:00 EDT 2024September 23 00:59:00 EDT 2024 BD Veo Insulin Syringe Ultra-Fine (half unit) 0.3 mL 31 gauge x 15/64 1 SYRINGE, EMPTY DISPOSABLE Intramuscular Every 1 Hour for 1 Day TueSeptember 21 01:00:00 EDT 2024September 22 00:59:00 EDT 2024 Dexcom G7 Sensor device 1 UNIT EACH Intr amuscular Every 1 Day for 10 Days TueSeptember 21 01:00:00 EDT 2024October 01 00:59:00 EDT 2024 Lasix 20 mg tablet 1 tablet TABLET Oral Every 1 Day for 1 Day TueSeptember 21 01:00:00 EDT 2024September 22 00:59:00 EDT 2024 insulin aspart U-100 100 unit/mL subcutaneous solution 1 UNIT VIAL (ML) Subcutaneous Every 1 Day for 1 Day TueSeptember 21 01:00:00 EDT 2024September 22 00:59:00 ED2024 Tresiba FlexTouch U-100 insulin 100 unit/mL (3 mL) subcutaneous pen 14 INSULIN PEN (ML) Subcutaneous Every 1 Day for 1 Day TueSeptember 21:00:00 ED2024September 22 00:59:00 ED2024 melatonin 5 mg tablet 1 TABLET TABLET Or al Every 1 Day for 1 Day TueSeptember 21:00:00 ED2024September 22 00:59:00 EDT 2024 Xarelto 2.5 mg tablet 1 TAB TABLET Oral 1 Time Daily for 2 Days TueSeptember 21:00:00 EDT 2024September 23 00:59:00 EDT 2024 oxyCODONE 5 mg tablet 1 TABLET TABLET Or al PRN (Max 1 Doses) for 8 Days 1 TABLET EVERY 8 HOURS TueSeptember 21:00:00 ED2024September 29 00:59:00 ED2024 Lyrica 75 mg capsule 1 TABLET CAPSULE Or al Every 1 Day for 1 Day TueSeptember 21:00:00 ED2024September 22 00:59:00 EDT 2024 Crestor 40 mg tablet 1 TABLET TABLET Ora l Every 1 Day for 1 Day TueSeptember 21:00:00 ED2024September 22 00:59:00 EDT 2024 traMADoL 50 mg tablet 1 TABLET Oral Ever y 1 Day for 1 Day TueSeptember 21:00:00 ED2024September 22 00:59:00 ED2024 valsartan 320 mg-hydrochlorothiazide 12.5 mg tablet 1 tablet TABLET Oral PRN (Max 1 Doses) for 1 Day TueSeptember 21:00:00 ED2024September 22 00:59:00 EDT 2024 Vitamin B-12 1,000 mcg tablet 1 TABLET Oral Every 1 Day for 1 Day TueSeptember 21:00:00 EDT 2024September 22 00:59:00 EDT 2024 Vitamin D3 10 mcg (400 unit) capsule 1 CAPSULE CAPSULE Oral Every 1 Day for 1 Day TueSeptember 21:00:00 ED2024September 22 00:59:00 EDT 2024 Problems Active Concerns * Aftercare following joint replacement surgery* Code: * Start Date: TueSeptember 19 00:00:00 ED2024 * End Date: * Text: Reason for Referral
[2024-09-29 13:30] VITALS: BP 120/84; PULSE 82; RESP 15; TEMP 36.8; O2SAT 97
--- NOTE | 2024-09-29 14:53 | ED_ITS ---
HPI - Extremity Injury (Lower) General Chief Complaint: Extremity Injury, Lower <Gloria Elias PA-C - Last Filed: 09/29/24 19:44> Stated Complaint: swollen left knee <Gloria Elias PA-C - Last Filed: 09/29/24 19:44> Time Seen by Provider: 09/29/24 14:54 <Gloria Elias PA-C - Last Filed: 09/29/24 19:44> Focused HPI: This is a 64 year old male that presents to the ER for left knee pain and swelling. Ongoing over the last couple of days. Reports he had a left hip replacement on September 17. This was done at [facility] with Dr. Tariq. Denies fevers, redness. GENERAL: Well-appearing, well-nourished, and in no acute distress. HEAD: Normocephalic, atraumatic. CHEST: Clear to auscultation. No respiratory distress. HEART: Regular rate and rhythm. NEURO: Alert and oriented x3. Patient screened in triage and initial orders placed. Additional care and disposition to be based upon diagnostic testing and treatment. <Gloria Elias PA-C - Last Filed: 09/29/24 19:44> History of Present Illness HPI Narrative: Agree with the above with the following additions/corrections: Prior history of amputation of right big toe as well as 2 previous angioplasties. Feels like the left knee and thigh as well as left hip been painful and swollen. Had previously been on Xarelto for history of PE. Three days prior to the surgery but then restarted after surgery with the addition of 81 mg of aspirin. He reports being very compliant with this medication not missing any doses. No fevers or chills. Has been doing physical therapy at home and still has couple of these appointments and they will be enquiring about additional outpatient physical therapy. They have an upcoming follow-up appointment with their orthopedic surgeon in October. They have been diligent about his wound care at the incision site. <Berna Etienne MD - Last Filed: 09/29/24 21:55> Related Data Home Medications: Home Medications Medication Instructions Recorded Confirmed Last Taken Type insulin aspart (niacinamide) See Rx Instructions .Route .COMPLEX 03/24/19 12/23/23 01/20/22 08:00 History (U-100) 100 unit/mL subcutaneous solution (Fiasp U-100 Insulin) insulin degludec 100 unit/mL 10 unit subcut DAILY 03/24/19 12/23/23 01/20/22 09:00 History subcutaneous solution (Tresiba U-100 Insulin) rivaroxaban 2.5 mg tablet (Xarelto) 2.5 mg PO BID 12/21/21 12/23/23 01/17/22 History rosuvastatin 20 mg tablet 20 mg PO DAILY 02/04/22 12/23/23 Unknown History Tumeric 1,000 mg PO DAILY 02/08/23 12/23/23 Unknown History cholecalciferol (vitamin D3) 25 25 mcg PO DAILY 02/08/23 12/23/23 Unknown History mcg (1,000 unit) tablet (Vitamin D3) cinnamon bark 500 mg capsule 1,000 mg PO DAILY 02/08/23 12/23/23 Unknown History (Cinnamon) cyanocobalamin (vitamin B-12) 1,000 mcg PO DAILY 02/08/23 12/23/23 Unknown History 1,000 mcg tablet (Vitamin B-12) geriatric multivitamin-min 1 tablet PO DAILY 02/08/23 12/23/23 Unknown History krill 1 cap PO DAILY 02/08/23 12/23/23 Unknown History [id number] 300 mg-90 mg-24 mg-50 mg capsule (krill oil) <Gloria Elias PA-C - Last Filed: 09/29/24 19:44> Allergies/Adverse Reactions: Allergies Allergy/AdvReac Type Severity Reaction Status Date / Time Penicillins Allergy Unknown Hives Verified 08/09/24 07:17 <Gloria Elias PA-C - Last Filed: 09/29/24 19:44> Review of Systems Review of Systems: All systems reviewed & are unremarkable except as noted in HPI and below <Gloria Elias PA-C - Last Filed: 09/29/24 19:44> PMFSH Past Medical History Medical History: Medical History (Updated 09/29/24 @ 16:52 by Berna Etienne MD) Hx pulmonary embolism Chronic anticoagulation Amputated great toe of right foot Cough Ulcer of left lower extremity, limited to breakdown of skin Environmental allergies Diabetes <Gloria Elias PA-C - Last Filed: 09/29/24 19:44> Surgical History Surgical History: Surgical History Status post hip surgery 09/17/24; [facility] History of angioplasty x2 <Gloria Elias PA-C - Last Filed: 09/29/24 19:44> Family History Family History: Family History (Updated 08/09/24 @ 07:18 by Josy Juares [facility]) Father No problems noted. Mother No problems noted. Sibling No problems noted. Other Diabetes mellitus <Gloria Elias PA-C - Last Filed: 09/29/24 19:44> Social History Social History: Social History Social History: Smoking status: Never smoker Alcohol intake: never Substance use: never Substance use type: does not use Do You Feel Safe in your Home?: Yes Lack of Transportation: No Lack of Food: Never True Current Housing: I Have Housing Concerned About Future Housing: No Difficulty Paying Gas/Electric Bills: No Difficulty Paying for Meds: No Currently Unemployed: No Education: High School Diploma/GED Difficulty w/ Childcare or Family Care: No Living arrangements: with family Additional living arrangements comments: Gender identity (if verbalized by the patient): Male Spiritual care concerns: No <Gloria Elias PA-C - Last Filed: 09/29/24 19:44> Exam Narrative: GENERAL: Well-appearing, well-nourished, and in no acute distress. HEAD: Normocephalic, atraumatic. EYES: Non injected, non icteric ENT: Nares clear, no rhinorrhea or epistaxis. NECK: Supple. CHEST: Speaking in full sentences. No respiratory distress. HEART: Regular rate and rhythm. . ABDOMEN: Soft, nondistended. EXTREMITIES: Left lower extremity edema Diffuse and mild but no erythema or particular warmth. SKIN: Warm, dry. No ecchymosis. Surgical incision site along left hip is well appearing under adhesive tape currently with no surrounding induration, purulent discharge, erythema. NEURO: No focal deficits. Alert and oriented x3. Sensation intact throughout leg/hip on left. PSYCH: Normal mood and affect. <Berna Etienne MD - Last Filed: 09/29/24 21:55> Course Vital Signs Vital signs: Vital Signs Temperature 98.2 F 09/29/24 13:30 Pulse Rate 82 09/29/24 13:30 Respiratory Rate 15 09/29/24 13:30 Blood Pressure 120/84 09/29/24 13:30 Pulse Oximetry 97 09/29/24 13:30 Temperature 98.2 F 09/29/24 13:30 Pulse Rate 82 09/29/24 13:30 Respiratory Rate 15 09/29/24 13:30 Blood Pressure 120/84 09/29/24 13:30 Pulse Oximetry 97 09/29/24 13:30 <Gloria Elias PA-C - Last Filed: 09/29/24 19:44> Vital Signs Temperature 98.2 F 09/29/24 13:30 Pulse Rate 82 09/29/24 13:30 Respiratory Rate 15 09/29/24 13:30 Blood Pressure 120/84 09/29/24 13:30 Pulse Oximetry 97 09/29/24 13:30 Temperature 98.2 F 09/29/24 13:30 Pulse Rate 82 09/29/24 13:30 Respiratory Rate 15 09/29/24 13:30 Blood Pressure 120/84 09/29/24 13:30 Pulse Oximetry 97 09/29/24 13:30 <Berna Etienne MD - Last Filed: 09/29/24 21:55> MDM - Extremity Injury (Lower) MDM Narrative Medical decision making narrative: This is an exceedingly pleasant 64-year-old male postoperative day 12 from a left hip surgery performed at [facility]. He has a history of a pulmonary embolism for which he is on Xarelto. This medication was stopped Three days prior to surgery but then restarted after the addition 81 mg aspirin and he reports being compliant with both. He has since been having some left leg/knee/hip pain and swelling. He undergoes home physical therapy currently and has a follow-up appointment with his orthopedic surgeon in October. In the emergency department they are afebrile with vital signs within normal limits. X-ray and ultrasound negative. Patient discharged home in stable condition and advised to continue his medications as prescribed and continue physical therapy and keep his follow-up appointment. <Berna Etienne MD - Last Filed: 09/29/24 21:55> Differential Diagnosis Differential diagnosis: Likely acute internal derangement of knee and other (DVT, postoperative pain/swelling/changes; considered thrombophlebitis) <Berna Etienne MD - Last Filed: 09/29/24 21:55> Imaging Data Radiologist's impression: Impressions Knee X-Ray 09/29/24 15:33 IMPRESSION: No acute osseous abnormality left knee. Consider MRI knee if there is concern for soft tissue internal derangement. Venous Doppler Study 09/29/24 16:29 IMPRESSION: Negative left lower extremity venous US. No deep vein thrombosis. <Berna Etienne MD - Last Filed: 09/29/24 21:55> Discharge Plan Discharge Clinical Impression: Pain and swelling of left lower extremity <Gloria Elias PA-C - Last Filed: 09/29/24 19:44> Patient Disposition: Home <Gloria Elias PA-C - Last Filed: 09/29/24 19:44> Condition: Stable <Gloria Elias PA-C - Last Filed: 09/29/24 19:44> Instructions: Antibiotic Form, Leg Edema (ED), Knee Pain (ED) <Gloria Elias PA-C - Last Filed: 09/29/24 19:44> Additional Instructions: The pain and swelling you are experiencing in that leg is commonly experienced after the type of surgery you had. The x-ray was negative the ultrasound did not show a blood clot. Continue taking all of your medications as prescribed including the blood thinner and aspirin. Keep your upcoming follow-up appointment with the orthopedic surgeon and continue doing physical therapy as ordered. Return to the emergency department any new or worsening symptoms.. <Gloria Elias PA-C - Last Filed: 09/29/24 19:44> Patient Language: Icelandic <Gloria Elias PA-C - Last Filed: 09/29/24 19:44> Prescriptions: No Action ondansetron 4 mg tablet,disintegrating 4 mg PO Q6H PRN (Reason: nausea and vomiting) Qty: 14 0RF prednisone 50 mg tablet 50 mg PO DAILY Qty: 5 0RF Xarelto 2.5 mg tablet 2.5 mg PO BID cyanocobalamin (vitamin B-12) [Vitamin B-12] 1,000 mcg Tablet 1,000 mcg PO DAILY One-A-Day 50 Plus Tablet 1 tablet PO DAILY cinnamon bark [Cinnamon] 500 mg Capsule 1,000 mg PO DAILY cholecalciferol (vitamin D3) [Vitamin D3] 25 mcg (1,000 unit) Tablet 25 mcg PO DAILY [id number] [krill oil] 651-19-07-50 mg Capsule 1 cap PO DAILY Tumeric 1,000 mg 1,000 mg PO DAILY Tresiba U-100 Insulin 100 unit/mL solution 10 unit SUB-Q DAILY Rx Instructions: Take per insulin protocol Fiasp U-100 Insulin 100 unit/mL solution See Rx Instructions .ROUTE .COMPLEX Rx Instructions: take per protocol rosuvastatin 20 mg tablet 20 mg PO DAILY albuterol sulfate 90 mcg/actuation HFA aerosol inhaler 2 puff inhalation Q4-6H PRN (Reason: shortness of breath or wheezing) Qty: 8.5 0RF tramadol 50 mg tablet 50 mg PO Q8H PRN (Reason: Pain (Scale Score 1-3)) Qty: 21 0RF fluticasone furoate-vilanterol [Breo Ellipta] 100-25 mcg/dose blister with device 1 inh inhalation DAILY Qty: 60 0RF amlodipine 10 mg tablet 10 mg PO DAILY Qty: 90 2RF valsartan-hydrochlorothiazide 320-25 mg tablet 1 tablet PO DAILY Qty: 90 1RF <Gloria Elias PA-C - Last Filed: 09/29/24 19:44> Follow-up/Referrals: Munir Dalton, [Primary Care Provider] - <Gloria Elias PA-C - Last Filed: 09/29/24 19:44> Time of Disposition: 16:42 <Gloria Elias PA-C - Last Filed: 09/29/24 19:44> 16:42 <Berna Etienne MD - Last Filed: 09/29/24 21:55>
--- OUTSIDE RECORDS SUMMARY | 2024-09-29 15:54 | XMS_ITS | Referral Summary ---
Author Organization [facility] [place] Address [address] [place] [address] Care Team Providers Care Poured Pipe Maker Name Role Phone Mary Pelaez MD Primary Care Provider Encounters Date Type Department Care Team Description 09/17/2024 5:01 AM CDT - 09/19/2024 2:21 PM CDT Hospital Encounter [facility] [id number] [facility] [place] [address] Navarro Tariq MD Primary osteoarthritis of left hip (Primary Dx) Discharge Disposition: Discharge to home, home health skilled care 09/17/2024 7:15 AM CDT - 09/17/2024 9:50 AM CDT Surgery [facility] Operating Room [address] [place] [id number] Navarro Tariq MD ARTHROPLASTY TOTAL HIP 09/17/2024 7:09 AM CDT Anesthesia Event [facility] Operating Room [address] [place] [id number] Donald High MD Keeline, Monica Marie, MD 09/13/2024 Orders Only [facility] Endocrinology Metabolism and Lipid [address] 13th [place] [address] [place] [address] Sara Hawkins NP 09/12/2024 Orders Only [facility] Orthopaedic Surgery [address] [facility] [address] [place] [address] Navarro Tariq MD 09/10/2024 Telephone [facility] Endocrinology Metabolism and Lipid [address] 5th [place] [address] [place] [address] Cailin Caputo, mason tender restoration labor result comments 09/07/2024 Telephone [facility] 4th Floor [address] [place] [address] Bárbara Caldera RN 09/07/2024 8:20 AM CDT Office [facility] [address] 12th [place] [address] [place] [address] Mary Pelaez MD Screening for colon cancer (Primary Dx); Encounter to establish care; Screening for viral disease; Screening for colorectal cancer 09/06/2024 Results Follow-Up [facility] Endocrinology Metabolism and Lipid [address] 13th [place] [address] [place] [address] Sara Hawkins NP 09/05/2024 9:30 AM CDT Lab [facility] Endocr[facility]ology Metabolism and Lipid [address] 12th [place] [address] [place] [address] Type 1 diabetes mellitus with polyneuropathy (HCC); Hypercholesterolemia 09/05/2024 8:20 AM CDT Office [facility] Endocr[facility]ology Metabolism and Lipid [address] 13th [place] [address] [place] [address] Maxwell Aiken MD Type 1 diabetes mellitus with polyneuropathy (HCC) (Primary Dx); Vitamin D deficiency; Hypercholesterolemia 08/28/2024 8:45 AM CDT Lab [facility] [address] [place] [address] Primary osteoarthritis of left hip; Left hip pain; Vitamin D deficiency 08/28/2024 8:30 AM CDT Pre-Admission Testing [facility] Pre-Anesthesia Testing [address] [place] [address] 08/28/2024 10:15 AM CDT [facility] [address] [facility] [address] [place] [address] Navarro Tariq MD Unilateral primary osteoarthritis, left hip (Primary Dx) 08/24/2024 Telephone [facility] Surgery [address] [facility] Floor 1 [place] [address] Scottie Trent MD 08/22/2024 9:00 AM CDT Office [facility] Ophthalmology [address] [facility] 6th Floor, [address] [place] [address] Alondra Ruggiero, OD 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 associated with type 2 diabetes mellitus (HCC) (Primary Dx); Mild nonproliferative diabetic retinopathy of left eye with macular edema associated with type 2 diabetes mellitus (HCC); Combined forms of age-related cataract of both eyes 08/22/2024 8:50 AM CDT Imaging Exam [facility] [address] [facility] 6th [place] [address] 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 associated with type 2 diabetes mellitus (HCC) 08/10/2024 Telephone [facility] Endocrinology Metabolism and Lipid [address] 5th [place] [address] [place] [address] Cailin Caputo RN 07/23/2024 10:00 AM CDT [facility] [address] [facility] 4th Floor [address] [place] [phone] Shankar Weber, DPM Type 1 diabetes mellitus [...] 40 mL 3 024 Active blood-glucose sensor ([email or web address] G7 Sensor) deviceIndications: Type 1 diabetes mellitus [...] 60 tablet 3 024 2024 Discontinued(R eorder) emkog-qs-6-dha-epa -phospho-ast 1,269-569-26-80 mg capsuleIndications :supplement Take 1 tablet by [...] no clear improvement in size. Admitted to [facility] due to hyperglycemia, currently with what [...] amputation of the R toe. I did student financial services counselor them that while ID was happy to [...] in diabetic osteomyelitis, as they are mostly fulfillment representative of colonizing bacteria on the surface [...] concerns/questions. Right hallux osteomyelitis 07/11/2023 Atherosclerosis of [place] te[place] of right lower extremity with intermittent claudication 03/08/2023 detention current use of insulin 10/26/2022 Osteomyelitis of [...] (09/09/2021): Added automatically from request for surgery [id number] Assessment & Plan (10/07/2021 10:18 AM CDT): [...] 02/20/2024 Assessment & Plan (07/07/2023 11:21 AM SPRING CRATER): Stable, chronic mild ME, small CR cysts, [...] 09/20/2022 Assessment & Plan (06/10/2022 5:21 PM SPRING CRATER): Few small intraretinal cysts in the right [...] 10/07/2021 Assessment & Plan (03/26/2021 9:27 AM SPRING CRATER): Stressed BG control (HbA1C<7) to reduce the risk for diabetic ocular complications. Lab Results Component Value Date HGBA1C 7.8 12/17/2020 Assessment & Plan (11/18/2020 1:48 PM CDT): Stressed the importance of continued strict blood glucose control. Assessment & Plan (05/27/2020 9:19 AM SPRING CRATER): Pt ed. Stressed BG control (HbA1C<7) to reduce the risk for diabetic ocular complications. RTC 6 mo DFE. Lab Results Component Value Date HGBA1C 7.9 05/21/2020 Assessment & Plan (02/15/2020 10:31 AM CDT): Pt ed. Stressed BG control. Lab Results Component Value Date HGBA1C 7.8 02/13/2020 Assessment & Plan (05/10/2019 12:56 PM SPRING CRATER): Lab Results Component Value Date HGBA1C 7.7 02/21/2019 Patient was educated on the importance of maintaining tight blood glucose control in order to reduce the risk for diabetic ocular complications.RTC 6 months DFE. Retinal artery occlusion, branch, left 9 Assessment & Plan (07/07/2023 11:21 AM SPRING CRATER): Lonstanding, obtain VF Assessment & Plan (05/10/2019 12:54 PM SPRING CRATER): Noted previously. Carotid ultrasound without significant stenosis. [...] protection. Assessment & Plan (07/07/2023 11:21 AM SPRING CRATER): Defer cataract surgery until signs and symptoms indicate. Pt was educated on the diagnosis. Recommend daily UV protection. RTC 12 mo/sooner with any visual changes. Assessment & Plan (06/10/2022 5:22 PM SPRING CRATER): Not v/s. Defer cataract surgery until signs and symptoms indicate. Pt ed. Assessment & Plan (10/20/2021 9:18 AM CDT): Defer cataract surgery until signs and symptoms indicate. Pt was educated on the diagnosis. Recommend daily UV protection. Assessment & Plan (03/26/2021 9:27 AM SPRING CRATER): Defer cataract surgery until signs and symptoms indicate. Pt was educated on the diagnosis. Assessment & Plan (11/18/2020 1:47 PM CDT): Pt is asymptomatic. Defer cataract extraction (CE) until s/sx indicate. Rec UV eye protection. Assessment & Plan (05/27/2020 8:42 AM SPRING CRATER): Pt asymptomatic. Check refraction 6 mo. Assessment & Plan (02/15/2020 10:33 AM CDT): Pt is asymptomatic. Defer cataract extraction (CE) until s/sx indicate. Assessment & Plan (05/10/2019 12:55 PM SPRING CRATER): Defer cataract surgery until signs and symptoms [...] Rx Assessment & Plan (03/26/2021 9:24 AM SPRING CRATER): Continue with hrx Assessment & Plan (05/10/2019 12:55 PM SPRING CRATER): Continue with current glasses Rx Assessment & [...] Tobacco: Never Tobacco Cessation:Counseling Given: Not Answered [facility] Utilities Answer Date Recorded In the past 12 months has [employer], gas, oil, or water [employer] threatened to shut off services in your [...] often do you attend chur ch or scientologist services? Never 08/22/2023 Do you belong to any clubs o r organizations such as hoahaoism groups, unions, fraternal or athletic groups, or [...] place to sleep or slept in a longterm (including now)? No 08/22/2023 Personal Safety Answer Date Recorded Have you ever been in or are you currently in a harmful physical or emotional relationship or is someone making you feel afraid or unsafe? Denies 09/17/2024 Sex and Gender Information Value Date Recorded Sex Assigned at Not on file Legal Sex Male 12:59 AM SPRING CRATER Gender Identity Male 12/17/2020 8:53 AM CDT [...] on file Medical Devices Implanted Type Area Can Line Operator Device Identifier Shelf Expiration Date Model / Serial / Lot Catalyst Stem Collared Stem High Offset Size 3 Implanted:Qty: 1 on 09/17/2024 at [facility] Other - see comments Left: Hip Pino and Nephew 04/19/2031 [id number] / / [id number] Pino & Nephew/Richco/ Ortho R3 52mm 3 Hole Hip Standard Shell Acetabular Poly [id number] - [id number] Implanted:Qty: 1 on 09/17/2024 at [facility] Left: Hip Pino & Nephew/Richco/O rtho 10/06/2033 [id number] / / [id number] Pino & Nephew/Richco/ Ortho R3 52mm 36mm Flexible Locking Tab Hip 0d Liner Acetabular Xlpe [id number] - [id number] Implanted:Qty: 1 on 09/17/2024 at [facility] Left: Hip Pino & Nephew/Richco/O rtho 08/25/2030 [id number] / / [id number] Pino & Nephew/Richco/ Ortho 36mm Hip +8mm 04/28 Head Femoral Oxinium [id number] - [id number] Implanted:Qty: 1 on 09/17/2024 at [facility] Left: Hip Pino [employer] Nephew/Richco/O rtho 11/25/2033 [id number] / / [id number] Procedures Procedure Name Priority Date/Time Associated Diagnosis [...] CDT CBC WITHOUT DIFFERENTIAL Routine 09/18/2024 5:1 [id number]|2024-09-29 15:54:00|2024-09-29 15:54:00|XMS_ITS|JOSEPHG QUENTIN|External Medical Summaries|[id number]|" Clinical Summary Created on: September 29, 2024 Samir Gamez III : 1960 Sex: Male Author Organization [facility] Address [address] [facility] [place] [address] Care Team Providers Care Poured Pipe Maker Name Role Phone Mary Pelaez MD Primary [...] 60 tablet 3 024 2024 Discontinued(R eorder) pfiyp-vr-2-dha-epa -phospho-ast 1,278-961-32-80 mg capsuleIndications :supplement Take 1 tablet by [...] no clear improvement in size. Admitted to [facility] due to hyperglycemia, currently with what [...] amputation of the R toe. I did student financial services counselor them that while ID was happy to [...] in diabetic osteomyelitis, as they are mostly fulfillment representative of colonizing bacteria on the surface [...] concerns/questions. Right hallux osteomyelitis 07/11/2023 Atherosclerosis of [place] of right lower extremity with intermittent claudication 03/08/2023 detention current use of insulin 10/26/2022 Osteomyelitis of [...] (09/09/2021): Added automatically from request for surgery [id number] Assessment & Plan (10/07/2021 10:18 AM CDT): [...] 02/20/2024 Assessment & Plan (07/07/2023 11:21 AM SPRING CRATER): Stable, chronic mild ME, small CR cysts, [...] 09/20/2022 Assessment & Plan (06/10/2022 5:21 PM SPRING CRATER): Few small intraretinal cysts in the right [...] 10/07/2021 Assessment & Plan (03/26/2021 9:27 AM SPRING CRATER): Stressed BG control (HbA1C<7) to reduce the risk for diabetic ocular complications. Lab Results Component Value Date HGBA1C 7.8 12/17/2020 Assessment & Plan (11/18/2020 1:48 PM CDT): Stressed the importance of continued strict blood glucose control. Assessment & Plan (05/27/2020 9:19 AM SPRING CRATER): Pt ed. Stressed BG control (HbA1C<7) to reduce the risk for diabetic ocular complications. RTC 6 mo DFE. Lab Results Component Value Date HGBA1C 7.9 05/21/2020 Assessment & Plan (02/15/2020 10:31 AM CDT): Pt ed. Stressed BG control. Lab Results Component Value Date HGBA1C 7.8 02/13/2020 Assessment & Plan (05/10/2019 12:56 PM SPRING CRATER): Lab Results Component Value Date HGBA1C 7.7 02/21/2019 Patient was educated on the importance of maintaining tight blood glucose control in order to reduce the risk for diabetic ocular complications.RTC 6 months DFE. Retinal artery occlusion, branch, left Assessment & Plan (07/07/2023 11:21 AM SPRING CRATER): Lonstanding, obtain VF Assessment & Plan (05/10/2019 12:54 PM SPRING CRATER): Noted previously. Carotid ultrasound without significant stenosis. [...] protection. Assessment & Plan (07/07/2023 11:21 AM SPRING CRATER): Defer cataract surgery until signs and symptoms indicate. Pt was educated on the diagnosis. Recommend daily UV protection. RTC 12 mo/sooner with any visual changes. Assessment & Plan (06/10/2022 5:22 PM SPRING CRATER): Not v/s. Defer cataract surgery until signs and symptoms indicate. Pt ed. Assessment & Plan (10/20/2021 9:18 AM CDT): Defer cataract surgery until signs and symptoms indicate. Pt was educated on the diagnosis. Recommend daily UV protection. Assessment & Plan (03/26/2021 9:27 AM SPRING CRATER): Defer cataract surgery until signs and symptoms indicate. Pt was educated on the diagnosis. Assessment & Plan (11/18/2020 1:47 PM CDT): Pt is asymptomatic. Defer cataract extraction (CE) until s/sx indicate. Rec UV eye protection. Assessment & Plan (05/27/2020 8:42 AM SPRING CRATER): Pt asymptomatic. Check refraction 6 mo. Assessment & Plan (02/15/2020 10:33 AM CDT): Pt is asymptomatic. Defer cataract extraction (CE) until s/sx indicate. Assessment & Plan (05/10/2019 12:55 PM SPRING CRATER): Defer cataract surgery until signs and symptoms [...] Rx Assessment & Plan (03/26/2021 9:24 AM SPRING CRATER): Continue with hrx Assessment & Plan (05/10/2019 12:55 PM SPRING CRATER): Continue with current glasses Rx Assessment & [...] CDT - 09/17/2024 9:50 AM CDT Surgery [facility] Operating Room [address] [place] [address] Navarro Tariq MD ARTHROPLASTY TOTAL HIP 09/17/2024 7:09 AM CDT Anesthesia Event [facility] Operating Room [address] [place], [place] [address] Donald High MD Keeline, Monica Marie, MD 09/17/2024 5:01 AM CDT - 09/19/2024 2:21 PM CDT Hospital Encounter [facility] [address] [place] [address] Navarro Tariq MD Primary osteoarthritis of left hip (Primary Dx) Discharge Disposition: Discharge to home, home health skilled care 09/13/2024 Orders Only [facility] Endocr[facility] Metabolism and Lipid [address] 13th [place] [address] [place] [address] Sara Hawkins NP 09/12/2024 Orders Only [facility] Orthopaedic Surgery [address] [facility] [address] [place] [address] Navarro Tariq MD 09/10/2024 Telephone [facility] Endocrinology Metabolism and Lipid [address] [facility] 5th [place] [address] [place] [address] Cailin Caputo RN lab result comments 09/07/2024 8:20 AM CDT Office Visit [facility] [address] 12th [place] [address] [place] [address] Mary Pelaez MD Screening for colon cancer (Primary Dx); Encounter to establish care; Screening for viral disease; Screening for colorectal cancer 09/07/2024 Telephone [facility] [address] [place] [address] Health 4th Floor [address] [place] [address] Bárbara Caldera RN 09/06/2024 Results Follow-Up [facility] Endocrinology Metabolism and Lipid [address] 13th [place] [address] [place] [address] Sara Hawkins NP 09/05/2024 9:30 AM CDT Lab [facility] Endocrinology Metabolism and Lipid [address] 12th [place] [address] [place] [address] Type 1 diabetes mellitus with polyneuropathy (HCC); Hypercholesterolemia 09/05/2024 8:20 AM CDT Office [facility] Endocrinology Metabolism and Lipid [address] 13th [place] [address] [place] [address] Maxwell Aiken MD Type 1 diabetes mellitus with polyneuropathy (HCC) (Primary Dx); Vitamin D deficiency; Hypercholesterolemia 08/28/2024 10:15 AM CDT Office [facility] Orthopa[facility] Surgery [address] [facility] Office Building [address] [place] [address] Navarro Tariq MD Unilateral primary osteoarthritis, left hip (Primary Dx) 08/28/2024 8:45 AM CDT Lab [facility] [address] [facility] [place] [address] Primary osteoarthritis of left hip; Left hip pain; Vitamin D deficiency 08/28/2024 8:30 AM CDT Pre-Admission Testing [facility] Pre-Anesthesia Testing [address] [place] [address] 08/24/2024 Telephone [facility] Surgery [address] [facility] Floor 1 [place] [address] Scottie Trent MD 08/22/2024 9:00 AM CDT [facility] [address] [facility] 6th Floor, [address] [place] [place] [address] Alondra Ruggiero, OD 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 associated with type 2 diabetes mellitus (HCC) (Primary Dx); Mild nonproliferative diabetic retinopathy of left eye with macular edema associated with type 2 diabetes mellitus (HCC); Combined forms of age-related cataract of both eyes 08/22/2024 8:50 AM CDT Imaging Exam [facility] [address] [facility] 6th [place] [address] 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 Never 08/22/2023 Do you belong to any clubs o r organizations such as hoahaoism groups, unions, fraternal or athletic groups, or [...] place to sleep or slept in a longterm (including now)? No 08/22/2023 Personal Safety Answer Date Recorded Have you ever been in or are you currently in a harmful physical or emotional relationship or is someone making you feel afraid or unsafe? Denies 09/17/2024 Sex and Gender Information Value Date Recorded Sex Assigned at Not on file Legal Sex Male 12:59 AM SPRING CRATER Gender Identity Male 12/17/2020 8:53 AM CDT [...] history exists Medical Devices Implanted Type Area Can Line Operator Device Identifier Shelf Expiration Date Model / Serial / Lot Catalyst Stem Collared Stem High Offset Size 3 Implanted:Qty: 1 on 09/17/2024 at [facility] Other - see comments Left: Hip Pino and Nephew 04/19/2031 [id number] / / [id number] Pino & Nephew/Richco/ Ortho R3 52mm 3 Hole Hip Standard Shell Acetabular Poly [id number] - [id number] Implanted:Qty: 1 on 09/17/2024 at [facility] Left: Hip Pino & Nephew/Richco/O rtho 10/06/2033 [id number] / / [id number] Pino [employer] Nephew/Richco/ Ortho R3 52mm 36mm Flexible Locking Tab Hip 0d Liner Acetabular Xlpe [id number] - [id number] Implanted:Qty: 1 on 09/17/2024 at [facility] Left: Hip Pino [employer] Nephew/Richco/O rtho 08/25/2030 [id number] / / [id number] Pino & Nephew/Richco/ Ortho 36mm Hip +8mm 12/14 Head Femoral Oxinium [id number] - [id number] Implanted:Qty: 1 on 09/17/2024 at [facility] Left: Hip Pino & Nephew/Mi/Pierre rtho 11/25/2033 [id number] / / [id number] Procedures Procedu
--- OUTSIDE RECORDS SUMMARY | 2024-09-29 15:54 | XMS_ITS | Continuity of Care Document ---
Author Organization [facility] Address [address] [place] [address] Phone Care Team Providers Care Senior Ssis Developer Name Role Phone Wayne OD, Slim Unavailable Unavailable Procedures Procedure Date No Charge Glasses Check Eye Exam & Treatment Refraction Office/outpatient Visit, Est Office/outpatient Visit, Est Office/outpatient Visit, Est Advance Directives Directive Yes / No Effective Date File Name No Information Encounters Encounter Description Practice Location Reason(s) For Visit Diagnoses Date Provider Providers Copied on Encounter [facility], [address] [place] [address] [address], [place], [place], [id number], [place] tel:[phone] [facility] No Information Nov- 5-201 0 Wayne OD Slim. [address] , [address], [place], [place], [facility], [place]. tel:[phone] [facility], [address] [place] [address] [address], [place], [place], [id number], [place] tel:[phone] [facility] No Information 9-201 0 Wayne OD Slim. [address] , [address], [place], [address], [place]. tel:[phone] Office/outpat ient Visit, Est [facility], [address] [place] [address] [address], [place], [place], [id number], [place] tel:[phone] [facility] No Information Sep-3 0-201 0 Wayne OD Slim. [address] [facility] , [address], [place], [address], [place]. tel:[phone] Office/outpat ient Visit, [facility], [address], [place], [place], [id number], [place] tel:[phone] [facility] No Information Sep-2 3-201 0 Wayne OD Slim. [address] [facility] , [address], [place], [address], [place]. tel:[phone] Office/outpat ient Visit, [facility], [address], [place], [place], [id number], [place] tel:[phone] [facility] No Information Sep-1 6-201 0 Wayne OD Slim. [address] [facility] , [address], [place], [address], [place]. tel:[phone] Family History Family Member Type Diagnosis Age [...]
--- OUTSIDE RECORDS SUMMARY | 2024-09-29 15:54 | XMS_ITS ---
Author Name Auto Generated, Auto Generated Organization [facility] Address [address] [place] [address] Phone [phone] Care Team Providers Care Storage Battery Inspector Name Role Phone Virgen Barnes Unavailable Unavailable Navarro Tariq Unavailable [phone] Functional Status Mental Status Allergies and Intolerances Encounters Medications Problems Reason for Referral
--- OUTSIDE RECORDS SUMMARY | 2024-09-29 15:54 | XMS_ITS ---
Author Name Auto Generated, Auto Generated Organization [facility] Address [address] [place] [address] Phone [phone] Care Team Providers Care Marketing Liaison Name Role Phone Virgen Barnes Unavailable Unavailable Navarro Tariq Unavailable [phone] Functional Status No Results Mental Status No [...]
--- OUTSIDE RECORDS SUMMARY | 2024-09-29 15:54 | XMS_ITS | Encounter Summary ---
Author Organization [facility] Address [address] [place] [address] Phone Care Team Providers Care Secretary Receptionist Name Role Phone Pelon Bhat Primary Care Provider Mary Pelaez MD Primary Care Provider Encounter Details Date Type Department Care Team (Late st Contact Info) Description 09/06/2024 Results Follow-Up [facility] Endocrinology Metabolism and Lipid [address] [facility] 13th [place] [address] [place] [address] Sara Hawkins NP [address] [place] [address] Social History Tobacco Use Types Packs/Day Years Used Date Smoking Tobacco: Never Passive Smoke Exposure: Never Smokeless Tobacco: Never [facility] Utilities Answer Date Recorded In the past 12 months has [employer] electric, gas, oil, or water company threatened [...] often do you attend chur ch or restoration services? Never 08/22/2023 Do you belong to any clubs o r organizations such as hinduism groups, unions, fraternal or athletic groups, or [...] place to sleep or slept in a alf (including now)? No 08/22/2023 Personal Safety Answer Date Recorded Have you ever been in or are you currently in a harmful physical or emotional relationship or is someone making you feel afraid or unsafe? Denies 08/28/2024 Sex and Gender Information Value Date Recorded Sex Assigned at Not on file Legal Sex Male 12:59 AM PUBLICATION DIRECTOR Gender Identity Male 12/17/2020 8:53 AM CDT Sexual Orientation Not on file documented as of this encounter Plan of Treatment Not on file documented as of this encounter Visit Diagnoses Not on filedocumented in this encounter Care Teams Secretary Receptionist Relationship Specialty Start Date End Date Pelon Bhat PA [address] [place], [place] [id number] PCP - General Physician Adjunct Psychology Professor 04/25/24 09/17/24 Mary Pelaez MD [address] [facility] [address] [place] [address] PCP - General Internal Medicine 09/18/24 documented as of this encounter
--- OUTSIDE RECORDS SUMMARY | 2024-09-29 15:54 | XMS_ITS | Continuity of Care Document ---
Author Organization [employer] Address [address] [facility] [address] [place] [address] Phone Care Team Providers Care Security Sme Name Role Phone Monahan PT,MPT,ATC, Soham Unavailable Unavai lable Procedures Procedure Date Therapeutic Activities Neuromuscular Re-Ed Therapeutic Exercise Therapeutic [...] Diagnoses Date Provider Providers Copied on Encounter [facility] [address], [place], [place], [id number], tel:[phone] [place] No Information [address] [place], [place], . [facility], [place], [place], [id number], tel:[phone] [place] No Information 2 [address] [place] . Referring [facility]: [facility] [address], [place], [address]. tel:[phone] [facility] [address], [place], [place], [id number], tel:[phone] [place] No Information 0- 4 [place] . Referring Provider: [facility] [address], [place], [address]. tel:[phone] [facility] [address], [place], [place], [address], tel:[phone] [place] No Information 0 - 4 [place] . Referring Provider: [facility] [address], [place], [address]. tel:[phone] [facility], [place], [place], [id number], tel:[phone] [place] No Information Octavio-0 3- 4 [place] . Referring Provider: Kamila Cross [facility] [address], [place], [address]. tel:[phone] [facility], [address], [place], [place], [id number], [place] tel:[phone] [place] No Information September- 4 [place] . Referring Provider: Kamila Cross [facility] [address], [place], [address]. tel:[phone] [place] [address] [address], [place], [place], [address], tel:[phone] [place] No Information 2 [address] [place] . Referring Provider: Kamila Cross [facility] [address], [place], [address]. tel:[phone] [place] [address], [address], [place], [place], [id number], [place] tel:[phone] [place] No Information 2 0 [address] [place] . Referring Provider: Kamila Cross [facility] [address], [place], [address]. tel:[phone] [place] [address] [address], [place], [place], [address], [place] tel:[phone] [place] No Information - 4 [place], [place], [place]. Referring Provider: Kamila Cross [facility] [address], [place], [address]. tel:[phone] [facility], [address], [place], [place], [address], [place] tel:[phone] [place] No Information 2 [place]. . Referring Provider: [facility]. [facility] [address], [place], [place], [address], tel:[phone] [employer] No Information 2 [place]. . Referring Provider: [facility]. [facility] [address], [place], [place], [address], tel:[phone] [employer] No Information 2 [place]. . Referring Provider: [facility] [employer]. [facility] [address] [address], [place], [place], [address], tel:[phone] [employer] No Information 2 [place]. . Referring Provider: [facility]. [facility] [address] [address], [place], [place], [address], tel:[phone] [employer] No Information 2 [place]. . Referring Provider: [facility]. [facility] [address], [place], [place], [id number], tel:[phone] [employer] No Information 2 [place]. . Referring Provider: [facility]. [facility], [id number], tel:[phone] [employer] No Information 2 [place]. . Referring Provider: [employer]. Family History Family Member Type Diagnosis Age At Onset No Information Payers Payer name Insurance type Covered libertarian ID Authorshaguftaa kelsynia(s) [employer] CI [id number] Social History Type Description Quantity Date Captured [...]
== END 2024-09-29 19:36 | disposition home or self-care (01) ==
PROVIDERS: Emergency Provider Student in an Organized Health Care Education/Training Program; PCP Internal Medicine
DX: M25.562 Pain in left knee (principal); R22.42 Localized swelling, mass and lump, left lower limb; E11.9 Type 2 diabetes mellitus without complications; Z96.642 Presence of left artificial hip joint; Z98.62 Peripheral vascular angioplasty status; Z86.711 Personal history of pulmonary embolism; Z89.411 Acquired absence of right great toe; Z79.4 Long term (current) use of insulin; Z79.01 Long term (current) use of anticoagulants; Z79.899 Other long term (current) drug therapy
CPT/HCPCS: 73564; 93971; 99284

== ENCOUNTER 2024-11-09 12:27 | Emergency (ER) | payer OTHER, SELFPAY ==
[2024-11-09 12:37] VITALS: BP 125/70; PULSE 69; RESP 16; TEMP 36.6; O2SAT 98
--- NOTE | 2024-11-09 12:37 | ED_ITS ---
HPI - Wound/Laceration General Chief Complaint: Skin/Abscess/Foreign Body Stated Complaint: Cut Right Arm Time Seen by Provider: 11/09/24 12:40 Source: patient and RN notes reviewed Mode of arrival: ambulatory Limitations: no limitations History of Present Illness HPI narrative: 64-year-old male presents concern for skin tear to his right forearm. Reports he sustained the injury on a table prior to arrival. He is on a blood thinner because he recently had hip surgery. Reports it bled quite a lot. It is no longer bleeding. He is up-to-date his tetanus vaccination. Related Data Home Medications ?Medication ?Instructions ?Recorded ?Confirmed ?Last Taken ?Type insulin aspart (niacinamide) See Rx Instructions .Route .COMPLEX 03/24/19 0802/0601/20/22 08:00 History (U-100) 100 unit/mL subcutaneous solution (Fiasp U-100 Insulin) insulin degludec 100 unit/mL 10 unit subcut DAILY 03/24/19 12/23/23 01/20/22 09:00 History subcutaneous solution (Tresiba U-100 Insulin) rivaroxaban 2.5 mg tablet (Xarelto) 2.5 mg PO BID 12/21/21 12/23/23 01/17/22 History rosuvastatin 20 mg tablet 20 mg PO DAILY 02/04/22 12/23/23 Unknown History Tumeric 1,000 mg PO DAILY 02/08/23 12/23/23 Unknown History cholecalciferol (vitamin D3) 25 25 mcg PO DAILY 02/08/23 12/23/23 Unknown History mcg (1,000 unit) tablet (Vitamin D3) cinnamon bark 500 mg capsule 1,000 mg PO DAILY 02/08/23 12/23/23 Unknown History (Cinnamon) cyanocobalamin (vitamin B-12) 1,000 mcg PO DAILY 02/08/23 12/23/23 Unknown History 1,000 mcg tablet (Vitamin B-12) geriatric multivitamin-min 1 tablet PO DAILY 02/08/23 12/23/23 Unknown History krill 1 cap PO DAILY 02/08/23 12/23/23 Unknown History mhz-th-2-bjp-ipw-tigvdmbyqtele 300 mg-90 mg-24 mg-50 mg capsule (krill oil) Allergies Allergy/AdvReac Type Severity Reaction Status Date / Time Penicillins Allergy Unknown Hives Verified 11/09/24 12:37 Review of Systems Review of Systems: CONSTITUTIONAL: Denies malaise, chills, sweats, or fever. SKIN: Reports skin tear to the right forearm MUSCULOSKELETAL: Denies muscle skeletal pain NEUROLOGIC: Denies numbness, weakness All systems reviewed & are unremarkable except as noted in HPI and below PMFSH Past Medical History Medical History (Updated 11/09/24 @ 12:48 by Rafia Myles NP) Hx pulmonary embolism Chronic anticoagulation Amputated great toe of right foot Cough Ulcer of left lower extremity, limited to breakdown of skin Environmental allergies Diabetes Surgical History Surgical History Status post hip surgery 09/17/24; Gandhi History of angioplasty x2 Family History Family History (Updated 08/09/24 @ 07:18 by TIKA Main) Father No problems noted. Mother No problems noted. Sibling No problems noted. Other Diabetes mellitus Social History Social History Social History: Smoking status: Never smoker Alcohol intake: never Substance use: never Substance use type: does not use Do You Feel Safe in your Home?: Yes Lack of Transportation: No Lack of Food: Never True Current Housing: I Have Housing Concerned About Future Housing: No Difficulty Paying Gas/Electric Bills: No Difficulty Paying for Meds: No Currently Unemployed: No Education: High School Diploma/GED Difficulty w/ Childcare or Family Care: No Living arrangements: with family Additional living arrangements comments: Gender identity (if verbalized by the patient): Male Spiritual care concerns: No Comments At time of signature, agree with nursing past medical, surgical, social and family history. There is no relevant family history pertinent to the presenting complaint Exam Narrative: GENERAL: Well-appearing, well-nourished, and in no acute distress. HEAD: Normocephalic, atraumatic. EYES: PERRLA, conjunctivae clear, and EOMI. ENT: Mucous membranes moist NECK: Supple. No lymphadenopathy CHEST: Clear to auscultation. No respiratory distress. HEART: Regular rate and rhythm. SKIN: Warm, dry. Approximately 2 cm superficial skin tear noted to the right forearm with no active bleeding NEURO: Alert and oriented x3. PSYCH: Normal mood and affect Course Course Emergency Course: Patient is aware of diagnosis, understands and agrees to treatment plan. Anticipatory guidance given. Patient agrees to follow-up as directed and is aware of reasons to seek care at the emergency department. Portions of this record may have been created with voice recognition software Level of Care: Express Care Visit Vital Signs Vital signs: Reviewed. MDM - Wound/Laceration MDM Narrative Medical decision making narrative: Wound explored for foreign body and gentle irrigation provided with no evidence of FB. There was no evidence of tendon or nerve lacerations. Loose skin was pulled over open wound for about 80% coverage. The wound was closed Steri- Strips. A sterile dressing was then applied and anticipatory guidance was provided. Differential Diagnosis Differential diagnosis: Likely laceration, abrasion and avulsion of skin Critical Care Time Critical Care Time Critical Care Time: No Discharge Plan Discharge Clinical Impression: Skin tear Patient Disposition: Home Condition: Stable Instructions: Skin Tear (ED) Additional Instructions: Keep wound clean, and dry. Apply antibiotic ointment twice daily. Cover with bandage as needed to prevent contamination. Clean with soap and water but do not soak, take baths, or swim until wound is completely healed. Do not clean with hydrogen peroxide. When the Steri-Strips are ready to come off in 2-3 days you can so cough and warm water, avoid pulling at the strips to avoid disrupting healing skin. If any signs of infection such as redness, swelling, increasing pain, drainage of purulent discharge, streaks up your extremity develop, seek medical attention immediately. Patient Language: Citizen Of [place] Prescriptions: No Action ondansetron 4 mg tablet,disintegrating 4 mg PO Q6H PRN (Reason: nausea and vomiting) Qty: 14 0RF prednisone 50 mg tablet 50 mg PO DAILY Qty: 5 0RF Xarelto 2.5 mg tablet 2.5 mg PO BID cyanocobalamin (vitamin B-12) [Vitamin B-12] 1,000 mcg Tablet 1,000 mcg PO DAILY One-A-Day 50 Plus Tablet 1 tablet PO DAILY cinnamon bark [Cinnamon] 500 mg Capsule 1,000 mg PO DAILY cholecalciferol (vitamin D3) [Vitamin D3] 25 mcg (1,000 unit) Tablet 25 mcg PO DAILY cyudm-iocxt-7-dxc-ypv-ijppdx [krill oil] 135-37-47-50 mg Capsule 1 cap PO DAILY Tumeric 1,000 mg 1,000 mg PO DAILY Tresiba U-100 Insulin 100 unit/mL solution 10 unit SUB-Q DAILY Rx Instructions: Take per insulin protocol Fiasp U-100 Insulin 100 unit/mL solution See Rx Instructions .ROUTE .COMPLEX Rx Instructions: take per protocol rosuvastatin 20 mg tablet 20 mg PO DAILY albuterol sulfate 90 mcg/actuation HFA aerosol inhaler 2 puff inhalation Q4-6H PRN (Reason: shortness of breath or wheezing) Qty: 8.5 0RF tramadol 50 mg tablet 50 mg PO Q8H PRN (Reason: Pain (Scale Score 1-3)) Qty: 21 0RF fluticasone furoate-vilanterol [Breo Ellipta] 100-25 mcg/dose blister with device 1 inh inhalation DAILY Qty: 60 0RF amlodipine 10 mg tablet 10 mg PO DAILY Qty: 90 2RF valsartan-hydrochlorothiazide 320-25 mg tablet 1 tablet PO DAILY Qty: 90 1RF Follow-up/Referrals: Munir Dalton DO [Primary Care Provider] - Time of Disposition: 12:54
== END 2024-11-09 13:11 | disposition home or self-care (01) ==
PROVIDERS: Emergency Provider Nurse Practitioner; PCP Internal Medicine
DX: S51.811A Laceration without foreign body of right forearm, initial encounter (principal); Z79.01 Long term (current) use of anticoagulants; E11.9 Type 2 diabetes mellitus without complications; W45.8XXA Other foreign body or object entering through skin, initial encounter
CPT/HCPCS: 99212; G0463

== ENCOUNTER 2025-01-13 08:02 | Emergency (ER) | payer OTHER, SELFPAY ==
[2025-01-13 08:15] VITALS: O2SAT 98
[2025-01-13 08:17] VITALS: BP 128/35; PULSE 74; RESP 16; TEMP 36.5; O2SAT 98
--- NOTE | 2025-01-13 08:17 | ED.URI ---
HPI - URI/Sore Throat General Chief Complaint: Upper Respiratory Infection Stated Complaint: Cough Time Seen by Provider: 01/13/25 08:17 Source: patient Mode of arrival: ambulatory Limitations: no limitations History of Present Illness HPI Narrative: 64 yo M presents with c/o cough for 2 to 3 days. Had low grade temp last night, 100F. Taking OTC cough medications with no relief. Denies sore throat, congestion. No CP or SOB. just can't sleep with this cough. 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 All systems reviewed and negative except as noted above. Related Data Home Medications ?Medication ?Instructions ?Recorded ?Confirmed ?Last Taken ?Type insulin aspart (niacinamide) See Rx Instructions .Route .COMPLEX 03/24/19 12/23/23 01/20/22 08:00 History (U-100) 100 unit/mL subcutaneous solution (Fiasp U-100 Insulin) insulin degludec 100 unit/mL 10 unit subcut DAILY 03/24/19 12/23/23 01/20/22 09:00 History subcutaneous solution (Tresiba U-100 Insulin) rivaroxaban 2.5 mg tablet (Xarelto) 2.5 mg PO BID 12/21/21 12/23/23 01/17/22 History rosuvastatin 20 mg tablet 20 mg PO DAILY 02/04/22 12/23/23 Unknown History Tumeric 1,000 mg PO DAILY 02/08/23 12/23/23 Unknown History cholecalciferol (vitamin D3) 25 25 mcg PO DAILY 02/08/23 12/23/23 Unknown History mcg (1,000 unit) tablet (Vitamin D3) cinnamon bark 500 mg capsule 1,000 mg PO DAILY 02/08/23 12/23/23 Unknown History (Cinnamon) cyanocobalamin (vitamin B-12) 1,000 mcg PO DAILY 02/08/23 12/23/23 Unknown History 1,000 mcg tablet (Vitamin B-12) geriatric multivitamin-min 1 tablet PO DAILY 02/08/23 12/23/23 Unknown History krill 1 cap PO DAILY 02/08/23 12/23/23 Unknown History ykt-wz-6-but-lvx-lppytzonjjkve 300 mg-90 mg-24 mg-50 mg capsule (krill oil) Allergies Allergy/AdvReac Type Severity Reaction Status Date / Time Penicillins Allergy Unknown Hives Verified 01/13/25 08:23 [facility] Past Medical History Medical History (Updated 01/13/25 @ 08:29 by Yesica Gutierrez NP) Hx pulmonary embolism Chronic anticoagulation Amputated great toe of right foot Cough Ulcer of left lower extremity, limited to breakdown of skin Environmental allergies Diabetes Surgical History Surgical History Status post hip surgery 09/17/24; Gandhi History of angioplasty x2 Family History Family History (Updated 08/09/24 @ 07:18 by [facility]) Father No problems noted. Mother No problems noted. Sibling No problems noted. Other Diabetes mellitus Social History Social History Social History: Smoking status: Never smoker Alcohol intake: never Substance use: never Substance use type: does not use Do You Feel Safe in your Home?: Yes Lack of Transportation: No Lack of Food: Never True Current Housing: I Have Housing Concerned About Future Housing: No Difficulty Paying Gas/Electric Bills: No Difficulty Paying for Meds: No Currently Unemployed: No Education: High School Diploma/GED Difficulty w/ Childcare or Family Care: No Living arrangements: with family Additional living arrangements comments: Gender identity (if verbalized by the patient): Male Spiritual care concerns: No Comments At time of signature, agree with nursing past medical, surgical, social and family history. There is no relevant family history pertinent to the presenting complaint. Exam Narrative: GENERAL: This is a well-nourished, well-developed patient, in no apparent distress. HEAD: normocephalic, atraumatic. EYES: PERRL. Sclera clear/white. Vision is grossly intact. EARS: External ears normal, auditory canals clear and without drainage, TMs normal without perforation. Hearing grossly intact. NOSE: External nose normal with no obvious nasal discharge, nares without redness, no rhinorrhea. THROAT: Mucous membranes moist, posterior pharynx clear. NECK: Neck supple, non-tender without lymphadenopathy, masses or thyromegaly. CARDIOVASCULAR: Regular rate and rhythm without murmurs, gallops, or rubs. RESPIRATORY: Clear to auscultation. Breath sounds equal bilaterally. No wheezes, rales, or rhonchi. SKIN: warm, Dry, intact with no suspicious lesions or rash, good texture and turgor. NEURO: awake, alert, and oriented to person, place and time. There were no obvious focal neurologic abnormalities. EXTREMITIES: No joint tenderness, effusion, or edema noted. Course Course Level of Care: Express Care Visit Vital Signs Vital signs: Vital Signs Pulse Oximetry 98 01/13/25 08:15 Oxygen Delivery Room Air 01/13/25 08:15 Temperature 36.5 C 01/13/25 08:17 Pulse Rate 74 01/13/25 08:17 Respiratory Rate 16 01/13/25 08:17 Blood Pressure 128/35 L 01/13/25 08:17 Pulse Oximetry 98 01/13/25 08:17 Oxygen Delivery Room Air 01/13/25 08:15 Reviewed MDM - URI/Sore Throat MDM Narrative Medical decision making narrative: Negative COVID and influenza test. Patient is well-appearing, nontoxic. Lungs clear to auscultation. Will prescribe Tessalon Perles for cough. Patient agrees with plan of care. Differential Diagnosis Differential diagnosis: Likely upper respiratory infection, sinusitis, viral infection and influenza Lab Data Labs: Lab Results 01/13/25 Range/Units 08:29 POC Influenza A Ag Negative (Negative) POC Influenza B Ag Negative (Negative) POC SARS CoV-2 Ag Negative (Negative) Discharge Plan Discharge Clinical Impression: Viral upper respiratory tract infection with cough Patient Disposition: Home Condition: Stable Instructions: Upper Respiratory Infection (ED) Additional Instructions: Your COVID and influenza test was negative today. Your symptoms are viral and may last 10-14 days. Take medications as prescribed. Robitussin with codeine cough medication may make you drowsy. Do not drive while taking it. Drink plenty water and rest. See your doctor if symptoms not improving. If you have chest pain or shortness of breath go to the ER. Patient Language: Indonesian Prescriptions: New benzonatate 200 mg capsule 200 mg PO TID PRN (Reason: cough) Qty: 20 0RF codeine-guaifenesin [Virtussin AC] 10-100 mg/5 mL liquid 5 ml PO Q6H PRN (Reason: cough) Qty: 120 0RF No Action ondansetron 4 mg tablet,disintegrating 4 mg PO Q6H PRN (Reason: nausea and vomiting) Qty: 14 0RF prednisone 50 mg tablet 50 mg PO DAILY Qty: 5 0RF Xarelto 2.5 mg tablet 2.5 mg PO BID cyanocobalamin (vitamin B-12) [Vitamin B-12] 1,000 mcg Tablet 1,000 mcg PO DAILY One-A-Day 50 Plus Tablet 1 tablet PO DAILY cinnamon bark [Cinnamon] 500 mg Capsule 1,000 mg PO DAILY cholecalciferol (vitamin D3) [Vitamin D3] 25 mcg (1,000 unit) Tablet 25 mcg PO DAILY cflif-rnysr-8-xqg-ixh-idfjxt [krill oil] 987-40-25-50 mg Capsule 1 cap PO DAILY Tumeric 1,000 mg 1,000 mg PO DAILY Tresiba U-100 Insulin 100 unit/mL solution 10 unit SUB-Q DAILY Rx Instructions: Take per insulin protocol Fiasp U-100 Insulin 100 unit/mL solution See Rx Instructions .ROUTE .COMPLEX Rx Instructions: take per protocol rosuvastatin 20 mg tablet 20 mg PO DAILY albuterol sulfate 90 mcg/actuation HFA aerosol inhaler 2 puff inhalation Q4-6H PRN (Reason: shortness of breath or wheezing) Qty: 8.5 0RF tramadol 50 mg tablet 50 mg PO Q8H PRN (Reason: Pain (Scale Score 1-3)) Qty: 21 0RF fluticasone furoate-vilanterol [Breo Ellipta] 100-25 mcg/dose blister with device 1 inh inhalation DAILY Qty: 60 0RF amlodipine 10 mg tablet 10 mg PO DAILY Qty: 90 2RF valsartan-hydrochlorothiazide 320-25 mg tablet 1 tablet PO DAILY Qty: 90 1RF Follow-up/Referrals: PHYSICIAN,BUCKLE INSPECTOR [Primary Care Provider, Internal Medicine] Time of Disposition: 08:29
[2025-01-13 08:32] LABS: EDCOVIDSCREEN Negative (Negative); EDINFLUASCREEN Negative (Negative); EDINFLUBSCREEN Negative (Negative)
== END 2025-01-13 08:46 | disposition home or self-care (01) ==
PROVIDERS: Emergency Provider Nurse Practitioner Family
DX: J06.9 Acute upper respiratory infection, unspecified (principal); R05.9 Cough, unspecified; Z20.822 Contact with and (suspected) exposure to COVID-19; E11.9 Type 2 diabetes mellitus without complications; Z79.4 Long term (current) use of insulin; Z86.711 Personal history of pulmonary embolism; Z79.01 Long term (current) use of anticoagulants
CPT/HCPCS: 87426; 87804; 99213; G0463

== ENCOUNTER 2025-02-05 09:33 | Emergency (ER) | payer OTHER, SELFPAY ==
--- NOTE | ~2025-02-05 | XR_ITS ---
Examination: XR chest 2V Clinical History: chest pain and cough, tightness in chest x 1 day Comparison: 06/16/2023 Technique: PA and Lateral Findings: Cardiomediastinal silhouette normal size and configuration. Lungs clear. No acute bony abnormality. IMPRESSION: 1. No acute cardiopulmonary findings. Reviewed, dictated and finalized at location R.
--- NOTE | 2025-02-05 09:54 | ECG_ITS ---
Test Date: 2025-02-05 09:59:24 Measurements Intervals [place] Rate: 62 P: 54 NH: 163 QRS: 257 QRSD: 98 T: 150 QT: 394 QTc: 402 Interpretive Statements SINUS RHYTHM INCOMPLETE RIGHT BUNDLE BRANCH BLOCK [90+ ms QRS DURATION, TERMINAL R IN V1/V2, 40+ ms S IN I/aVL/V4/V5/V6] CONSIDER PREVIOUS INFERIOR INFARCTION ABNORMAL ECG No previous ECG available for comparison Electronically Signed On 02-05-2025 12:35:11 CDT by Shankar Rodriguez M.D.
[2025-02-05 10:01] VITALS: BP 120/42; PULSE 63; RESP 16; TEMP 36.6; O2SAT 99
--- NOTE | 2025-02-05 10:48 | ED.GENADULT ---
HPI - General Adult General Chief complaint: Upper Respiratory Infection Stated complaint: Feels Sick Source: patient and family Mode of arrival: ambulatory Limitations: no limitations History of Present Illness HPI narrative: Patient presents for evaluation of an episode of chest pain that occurred last night. Pain was in the sternal region of his chest. He describes the pain as pressure and rated it 8/10 in severity. He said he had some difficulty breathing but denied shortness of breath. He has never experience symptoms similar to that in the past. Of note has has some swelling in the BLE and he has experienced a productive cough of green sputum for about four weeks. 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 He has an underlying history of HTN, hyperlipidemia, and DM. He states his last a1c was 7.2. He has never seen cardiology in the past No family history of heart disease. Related Data Home Medications ?Medication ?Instructions ?Recorded ?Confirmed ?Last Taken ?Type insulin aspart (niacinamide) See Rx Instructions .Route .COMPLEX 03/24/19 12/23/23 01/20/22 08:00 History (U-100) 100 unit/mL subcutaneous solution (Fiasp U-100 Insulin) insulin degludec 100 unit/mL 10 unit subcut DAILY 03/24/19 12/23/23 01/20/22 09:00 History subcutaneous solution (Tresiba U-100 Insulin) rivaroxaban 2.5 mg tablet (Xarelto) 2.5 mg PO BID 12/21/21 12/23/23 01/17/22 History rosuvastatin 20 mg tablet 20 mg PO DAILY 02/04/22 12/23/23 Unknown History Tumeric 1,000 mg PO DAILY 02/08/23 12/23/23 Unknown History cholecalciferol (vitamin D3) 25 25 mcg PO DAILY 02/08/23 12/23/23 Unknown History mcg (1,000 unit) tablet (Vitamin D3) cinnamon bark 500 mg capsule 1,000 mg PO DAILY 02/08/23 12/23/23 Unknown History (Cinnamon) cyanocobalamin (vitamin B-12) 1,000 mcg PO DAILY 02/08/23 12/23/23 Unknown History 1,000 mcg tablet (Vitamin B-12) geriatric multivitamin-min 1 tablet PO DAILY 02/08/23 12/23/23 Unknown History krill 1 cap PO DAILY 02/08/23 12/23/23 Unknown History [id number] 300 mg-90 mg-24 mg-50 mg capsule (krill oil) Allergies Allergy/AdvReac Type Severity Reaction Status Date / Time Penicillins Allergy Unknown Hives Verified 01/13/25 08:23 Review of Systems Review of Systems: CONSTITUTIONAL: Denies fever, chills, or sweats. EYES: Denies visual changes, redness, or discharge. ENT: Denies rhinorrhea, congestion, sore throat, or otalgia. CARDIOVASCULAR:Reports an episode of chest pain last night, without active symptoms. RESPIRATORY: Reports productive cough of green sputum For the last 4 weeks. Reports difficulty breathing last night without shortness of breath, without symptoms currently GASTROINTESTINAL: Denies abdominal pain, nausea, vomiting, or diarrhea. GENITOURINARY: Denies dysuria or hematuria. SKIN: Denies rash or itching. MUSCULOSKELETAL: Denies back pain, joint pain, or myalgia. NEUROLOGIC: Denies headache, numbness, dizziness, or weakness. PSYCHIATRIC: Denies anxiety or depression. COUNT INCLUDES THE [facility] Past Medical History Medical History Hx pulmonary embolism Chronic anticoagulation Amputated great toe of right foot Cough Ulcer of left lower extremity, limited to breakdown of skin Environmental allergies Diabetes Surgical History Surgical History Status post hip surgery 09/17/24; [facility] History of angioplasty x2 Family History Family History Father No problems noted. Mother No problems noted. Sibling No problems noted. Other Diabetes mellitus Social History Social History Social History: Smoking status: Never smoker Alcohol intake: never Substance use: never Substance use type: does not use Do You Feel Safe in your Home?: Yes Lack of Transportation: No Lack of Food: Never True Current Housing: I Have Housing Concerned About Future Housing: No Difficulty Paying Gas/Electric Bills: No Difficulty Paying for Meds: No Currently Unemployed: No Education: High School Diploma/GED Difficulty w/ Childcare or Family Care: No Living arrangements: with family Additional living arrangements comments: Gender identity (if verbalized by the patient): Male Spiritual care concerns: No Exam Narrative: GENERAL: Well-appearing, well-nourished, and in no acute distress. HEAD: Normocephalic, atraumatic. EYES: PERRLA and EOMI. ENT: Nares clear, no rhinorrhea or epistaxis. Mucous membranes moist. Oropharynx without tonsillar hypertrophy exudate or other lesions. Bilateral TMs pearly jackson nonbulging NECK: Supple. No adenopathy or masses. No carotid bruits or JVD CHEST: Clear to auscultation. No respiratory distress. No wheezes rales or rhonchi HEART: Regular rate and rhythm. No murmur heard. Normal peripheral pulses. ABDOMEN: Soft, nontender, nondistended, normal active bowel sounds. EXTREMITIES: Normal range of motion. 2+ pitting edema bilateral lower legs SKIN: Warm, dry, no rash. NEURO: No focal deficits. Alert and oriented x3. PSYCH: Normal mood and affect. Course Course Emergency Course: This is a 64-year-old male who presented for evaluation of an episode of chest pain that occurred last night. EKG with no acute ischemic changes. Chest x-ray normal. He has no active chest pain. Advise a follow-up with his primary care provider today to get a referral with cardiology. If he has recurrence of his chest pain, he should go immediately to the emergency department. Patient in agreement with plan of care. Level of Care: Express Care Visit Vital Signs Vital signs: Vital Signs Temperature 36.6 C 02/05/25 10:01 Pulse Rate 63 02/05/25 10:01 Respiratory Rate 16 02/05/25 10:01 Blood Pressure 120/42 L 02/05/25 10:01 Pulse Oximetry 99 02/05/25 10:01 Temperature 36.6 C 02/05/25 10:01 Pulse Rate 63 02/05/25 10:01 Respiratory Rate 16 02/05/25 10:01 Blood Pressure 120/42 L 02/05/25 10:01 Pulse Oximetry 99 02/05/25 10:01 Medical Decision Making Vital Signs Vital Signs: Vital Signs Temperature 36.6 C 02/05/25 10:01 Pulse Rate 63 02/05/25 10:01 Respiratory Rate 16 02/05/25 10:01 Blood Pressure 120/42 L 02/05/25 10:01 Pulse Oximetry 99 02/05/25 10:01 Temperature 36.6 C 02/05/25 10:01 Pulse Rate 63 02/05/25 10:01 Respiratory Rate 16 02/05/25 10:01 Blood Pressure 120/42 L 02/05/25 10:01 Pulse Oximetry 99 02/05/25 10:01 Imaging Data Radiologist's impression: Examination: XR chest 2V Clinical History: chest pain and cough, tightness in chest x 1 day Comparison: 06/16/2023 Technique: PA and Lateral Findings: Cardiomediastinal silhouette normal size and configuration. Lungs clear. No acute bony abnormality. IMPRESSION: 1. No acute cardiopulmonary findings. ECG Data EKG #1: ECG completion date: 02/05/25 ECG completion time: 11:39 Interpretation: SINUS RHYTHM, RATE 62, INCOMPLETE RIGHT BUNDLE-BRANCH BLOCK Discharge Plan Discharge Clinical Impression: Chest pain Patient Disposition: Home Condition: Stable Instructions: Antibiotic Form, Chest Pain (DC) Additional Instructions: PLEASE CALL PRIMARY CARE TODAY FOR A FOLLOW UP APPOINTMENT AND TO DISCUSS POTENTIAL REFERRAL TO CARDIOLOGY IF YOU HAVE RECURRENT SEVERE CHEST PAIN, PLEASE GO TO THE EMERGENCY DEPARTMENT. Patient Language: German Prescriptions: No Action benzonatate 200 mg capsule 200 mg PO TID PRN (Reason: cough) Qty: 20 0RF codeine-guaifenesin [Virtussin AC] 10-100 mg/5 mL liquid 5 ml PO Q6H PRN (Reason: cough) Qty: 120 0RF ondansetron 4 mg tablet,disintegrating 4 mg PO Q6H PRN (Reason: nausea and vomiting) Qty: 14 0RF prednisone 50 mg tablet 50 mg PO DAILY Qty: 5 0RF Xarelto 2.5 mg tablet 2.5 mg PO BID cyanocobalamin (vitamin B-12) [Vitamin B-12] 1,000 mcg Tablet 1,000 mcg PO DAILY One-A-Day 50 Plus Tablet 1 tablet PO DAILY cinnamon bark [Cinnamon] 500 mg Capsule 1,000 mg PO DAILY cholecalciferol (vitamin D3) [Vitamin D3] 25 mcg (1,000 unit) Tablet 25 mcg PO DAILY [id number] [krill oil] 059-70-20-50 mg Capsule 1 cap PO DAILY Tumeric 1,000 mg 1,000 mg PO DAILY Tresiba U-100 Insulin 100 unit/mL solution 10 unit SUB-Q DAILY Rx Instructions: Take per insulin protocol Fiasp U-100 Insulin 100 unit/mL solution See Rx Instructions .ROUTE .COMPLEX Rx Instructions: take per protocol rosuvastatin 20 mg tablet 20 mg PO DAILY albuterol sulfate 90 mcg/actuation HFA aerosol inhaler 2 puff inhalation Q4-6H PRN (Reason: shortness of breath or wheezing) Qty: 8.5 0RF tramadol 50 mg tablet 50 mg PO Q8H PRN (Reason: Pain (Scale Score 1-3)) Qty: 21 0RF fluticasone furoate-vilanterol [Breo Ellipta] 100-25 mcg/dose blister with device 1 inh inhalation DAILY Qty: 60 0RF amlodipine 10 mg tablet 10 mg PO DAILY Qty: 90 2RF valsartan-hydrochlorothiazide 320-25 mg tablet 1 tablet PO DAILY Qty: 90 1RF Follow-up/Referrals: Leonides Camilo MD [Physician, Family Practice] Time of Disposition: 11:37
== END 2025-02-05 11:44 | disposition home or self-care (01) ==
PROVIDERS: Emergency Provider Nurse Practitioner
DX: R07.9 Chest pain, unspecified (principal); E11.9 Type 2 diabetes mellitus without complications; Z79.4 Long term (current) use of insulin; I10 Essential (primary) hypertension; E78.5 Hyperlipidemia, unspecified; Z86.711 Personal history of pulmonary embolism; Z79.01 Long term (current) use of anticoagulants
CPT/HCPCS: 71046; 93005; 99213; G0463